=== PATIENT | female | born 1940 | race Caucasian/White ===

== ENCOUNTER → 2024-03-23 09:50 | Outpatient (REF) | payer OTHER, SELFPAY | LOC: HWWDC 09:50 | PROVIDERS: ATTENDING PHYSICIAN Family Medicine Geriatric Medicine; FAMILY PHYSICIAN Nurse Practitioner Family; REFERRING PHYSICIAN Internal Medicine Hematology & Oncology | DX: Z12.31 Encounter for screening mammogram for malignant neoplasm of breast (principal) | CPT/HCPCS: 77063; 77067 ==

== ENCOUNTER → 2024-09-28 08:45 | Outpatient (REF) | payer OTHER, SELFPAY ==
[2024-09-28 10:13] LABS: % Basophils 1.3 % (0-2); % Eosinophils 2.8 % (0-6); % Immature Granulocytes 0.3 % (0-0.5); % Lymphocytes 25.6 % (20.5-51.1); % Monocytes 8.7 % (1.7-9.3); % Neutrophils 61.3 % (42.2-75.2); Absolute Basophils 0.1 10^3/uL (0-0.2); Absolute Eosinophils 0.2 10^3/uL (0-0.7); Absolute Lymphocytes 1.7 10^3/uL (1.2-3.4); Absolute Monocytes 0.6 10^3/uL (0.1-0.6); Absolute Neutrophils 4.2 10^3/uL (1.4-6.5); Hematocrit 43.3 % (37.0-47.0); Hemoglobin 13.3 g/dL (12.0-16.0); Mean Corp Hgb Conc. 30.7 g/dL (33.0-37.0); Mean Corpuscular Hgb 27.4 pg (27.0-31.0); Mean Corpuscular Volume 89.3 fL (81.0-99.0); Mean Platelet Volume 8.9 fL (7.4-10.4); Nucleated Red Blood Cells % 0 %; Platelet Count 294 10^3/uL (130-400); Red Blood Cell Count 4.85 10^6/uL (4.20-5.40); Red Cell Dist. Width 13.6 % (11.5-14.5); White Blood Cell Count 6.8 10^3/uL (4.8-10.8)
[2024-09-28 10:44] LABS: ALT (SGPT) 17 U/L (0-35); AST (SGOT) 26 U/L (14-36); Albumin 4.1 g/dl (3.5-5.0); Alkaline Phosphatase 135 U/L (38-126); Blood Urea Nitrogen 21 mg/dl (7-17); Calcium 9.4 mg/dl (8.4-10.2); Carbon Dioxide 29 mmol/L (22-30); Chloride 102 mmol/L (98-107); Direct Bilirubin 0.1 mg/dl (0.0-0.4); Glucose 88 mg/dl (70-99); Phosphorus 3.7 mg/dl (2.5-4.5); Potassium 4.9 mmol/L (3.5-5.1); Sodium 141 mmol/L (135-145); Total Bilirubin 0.5 mg/dl (0.2-1.3); Total Protein 6.7 g/dl (6.3-8.2); eGFR > 60.00
== END ==
LOC: REG 08:45
PROVIDERS: ATTENDING PHYSICIAN Internal Medicine Hematology & Oncology
DX: C50.411 Malignant neoplasm of upper-outer quadrant of right female breast (principal)
CPT/HCPCS: 36415; 80053; 82248; 84100; 85025

== ENCOUNTER → 2024-11-30 11:57 | Outpatient (REF) | payer OTHER, SELFPAY ==
[2024-11-30 13:24] LABS: ALT (SGPT) 11 U/L (0-35); AST (SGOT) 17 U/L (14-36); Albumin 3.4 g/dl (3.5-5.0); Alkaline Phosphatase 106 U/L (38-126); Direct Bilirubin 0.2 mg/dl (0.0-0.4); Total Bilirubin 0.6 mg/dl (0.2-1.3); Total Protein 6.1 g/dl (6.3-8.2)
== END ==
LOC: REG 11:57
PROVIDERS: ATTENDING PHYSICIAN Nurse Practitioner Adult Health
DX: C50.411 Malignant neoplasm of upper-outer quadrant of right female breast (principal)
CPT/HCPCS: 36415; 80076

== ENCOUNTER → 2025-02-22 08:53 | Outpatient (REF) | payer OTHER, SELFPAY ==
[2025-02-22 10:03] LABS: % Basophils 1.1 % (0-2); % Eosinophils 1.9 % (0-6); % Immature Granulocytes 0.5 % (0-0.5); % Lymphocytes 24.4 % (20.5-51.1); % Monocytes 8.8 % (1.7-9.3); % Neutrophils 63.3 % (42.2-75.2); Absolute Basophils 0.1 10^3/uL (0-0.2); Absolute Eosinophils 0.2 10^3/uL (0-0.7); Absolute Lymphocytes 2.1 10^3/uL (1.2-3.4); Absolute Monocytes 0.8 10^3/uL (0.1-0.6); Absolute Neutrophils 5.5 10^3/uL (1.4-6.5); Hemoglobin 11.6 g/dL (12.0-16.0); Mean Corp Hgb Conc. 31.4 g/dL (33.0-37.0); Mean Corpuscular Hgb 26.1 pg (27.0-31.0); Mean Corpuscular Volume 83.1 fL (81.0-99.0); Mean Platelet Volume 8.4 fL (7.4-10.4); Nucleated Red Blood Cells % 0 %; Platelet Count 307 10^3/uL (130-400); Red Blood Cell Count 4.45 10^6/uL (4.20-5.40); Red Cell Dist. Width 16.2 % (11.5-14.5); White Blood Cell Count 8.7 10^3/uL (4.8-10.8)
[2025-02-22 10:44] LABS: ALT (SGPT) 13 U/L (0-35); AST (SGOT) 18 U/L (14-36); Albumin 3.9 g/dl (3.5-5.0); Alkaline Phosphatase 109 U/L (38-126); Blood Urea Nitrogen 19 mg/dl (7-17); Calcium 9.3 mg/dl (8.4-10.2); Carbon Dioxide 25 mmol/L (22-30); Chloride 105 mmol/L (98-107); Glucose 94 mg/dl (70-99); Potassium 4.4 mmol/L (3.5-5.1); Sodium 139 mmol/L (135-145); Total Bilirubin 0.7 mg/dl (0.2-1.3); Total Cholesterol 240 mg/dl (50-199); Total Protein 6.4 g/dl (6.3-8.2); Triglyceride 88 mg/dl (10-149); Very Low Density Lipoprotein 17 mg/dl (0-30); eGFR > 60.00
[2025-02-22 10:57] LABS: Free T4 1.23 ng/dl (0.78-2.19)
[2025-02-22 11:11] LABS: TSH 2.56 uIU/ml (0.47-4.68)
[2025-02-22 12:01] LABS: Glycohemoglobin (HgbA1c) 5.1 % (4.0-5.6)
[2025-02-22 12:31] LABS: HDL Cholesterol 51 mg/dl; LDL Cholesterol, Calculated 172 mg/dl
== END ==
LOC: REG 08:53
PROVIDERS: ATTENDING PHYSICIAN Registered Nurse; REFERRING PHYSICIAN Internal Medicine Hematology & Oncology
DX: Z13.6 Encounter for screening for cardiovascular disorders (principal); Z13.0 Encounter for screening for diseases of the blood and blood-forming organs and certain disorders involving the immune mechanism; Z13.29 Encounter for screening for other suspected endocrine disorder
CPT/HCPCS: 36415; 80053; 80061; 83036; 84439; 84443; 85025

== ENCOUNTER → 2025-03-23 08:59 | Outpatient (REF) | payer OTHER, SELFPAY ==
[2025-03-23 11:30] LABS: HDL Cholesterol 40 mg/dl; LDL Cholesterol, Calculated 119 mg/dl; Total Cholesterol 180 mg/dl (50-199); Triglyceride 106 mg/dl (10-149); Very Low Density Lipoprotein 21 mg/dl (0-30)
== END ==
LOC: REG 08:59
PROVIDERS: ATTENDING PHYSICIAN Registered Nurse
DX: E78.5 Hyperlipidemia, unspecified (principal); R19.5 Other fecal abnormalities; R73.01 Impaired fasting glucose
CPT/HCPCS: 36415; 80061; 87045; 87046; 87324; 87328; 87329; 87427; 87449; 89055

== ENCOUNTER → 2025-03-24 09:32 | Outpatient (REF) | payer OTHER, SELFPAY | LOC: HWWDC 09:32 | PROVIDERS: ATTENDING PHYSICIAN Internal Medicine Hematology & Oncology; FAMILY PHYSICIAN Registered Nurse | DX: Z12.31 Encounter for screening mammogram for malignant neoplasm of breast (principal) | CPT/HCPCS: 77063; 77067 ==

== ENCOUNTER 2025-04-13 16:14 | Inpatient (IN) | payer OTHER, SELFPAY ==
[2025-04-13] VITALS (17 sets, daily range): BP systolic 126–164; BP diastolic 69–99; BMI 20.6; BMI 19.5
[2025-04-13 11:25] LABS: % Basophils 0.4 % (0-2); % Eosinophils 0.3 % (0-6); % Immature Granulocytes 0.3 % (0-0.5); % Monocytes 10.1 % (1.7-9.3); % Neutrophils 75.9 % (42.2-75.2); Absolute Basophils 0.1 10^3/uL (0-0.2); Absolute Lymphocytes 1.5 10^3/uL (1.2-3.4); Absolute Monocytes 1.1 10^3/uL (0.1-0.6); Absolute Neutrophils 8.5 10^3/uL (1.4-6.5); Hematocrit 37.4 % (37.0-47.0); Hemoglobin 11.6 g/dL (12.0-16.0); Mean Corpuscular Hgb 25.1 pg (27.0-31.0); Mean Platelet Volume 8.5 fL (7.4-10.4); Nucleated Red Blood Cells % 0 %; Platelet Count 400 10^3/uL (130-400); Red Blood Cell Count 4.62 10^6/uL (4.20-5.40); Red Cell Dist. Width 17.6 % (11.5-14.5); White Blood Cell Count 11.2 10^3/uL (4.8-10.8)
--- NOTE | 2025-04-13 11:29 | ED.GENMED ---
History of Present Illness
General
Chief Complaint: Abdominal Pain
Time Seen by Provider: 04/13/25 10:58
History of Present Illness
History of Present Illness:
The patient is an 84-year-old female who presents with abdominal pain and diarrhea, previously diagnosed with Cryptosporidium infection. She reports the onset of symptoms several months ago. A stool sample confirmed Cryptosporidium, although the
source was undetermined despite investigations by the health department. She mentions completing a 13-day course of metronidazole (Flagyl) four days ago, which temporarily relieved the symptoms. Abdominal pain and diarrhea have since returned. The
diarrhea is described as loose and variable in appearance, not as watery as it was with the initial infection. She denies nausea or vomiting but reports significant weight loss and a diminished appetite, contributing to feelings of unsteadiness.
Past History
Past History
ED Past Medical History: None
ED Past Surgical History: None
Social History
Tobacco: Non-smoker
Phy Exam
Physical Exam
Physical Exam:
GENERAL: in no acute distress
HEENT: normocephalic, extraocular movements intact, moist oral mucosa
NECK: normal inspection
RESPIRATORY: no respiratory distress, clear to auscultation bilaterally
CARDIOVASCULAR: regular rate and rhythm
ABDOMEN/: soft, non-distended, diffuse abdominal tenderness palpation, no rebound or guarding
EXTREMITIES: non-tender, no edema/swelling
NEUROLOGIC: awake and alert, moves all extremities
SKIN: warm
Course
Orders/Labs/Results
Orders:
Orders
04/13/25 10:58
CT Abd/pelvis W Iv Cont Urgent
Comment:
Reason For Exam: abdominal pain, diarrhea
04/13/25 11:00
Electrocardiogram (*1) Urgent
Reason for Study: Abdominal Pain
EKG- Treatment ONCE
04/13/25 11:07
Complete Blood Count/With Diff Urgent
Comprehensive Metabolic Panel Urgent
04/13/25 11:14
Ova & Parasites Giardia/Crypto AG [Giardia/Cryptosporidium Ag] Urgent
BETTY Source: Feces/Stool
Specimen Description:
Date Specimen was Collected: 04/13/25
Time Specimen was Collected: 11:13
STOOL [C difficile Antigen & Toxins] Urgent
BETTY Source: Feces/Stool
Specimen Description:
Date Specimen was Collected: 04/13/25
Time Specimen was Collected: 11:13
Stool Culture Urgent
BETTY Source: Feces/Stool
Specimen Description:
Date Specimen was Collected: 04/13/25
Time Specimen was Collected: 11:13
Stool For WBC Urgent
BETTY Source: Feces/Stool
Specimen Description:
Date Specimen was Collected: 04/13/25
Time Specimen was Collected: 11:13
04/13/25 12:23
Dicyclomine [Bentyl] 20 mg PO NOW STA
04/13/25 12:35
Norovirus by PCR Urgent
BETTY Source: Feces/Stool
Specimen Description:
Date Specimen was Collected: 04/13/25
Time Specimen was Collected: 11:29
Comment: specimen sent already
04/13/25 15:04
Zosyn 4.5 grams IVPB NOW Piperacillin/Tazo 4.5 Gram [Zosyn] 4.5 gram in 100 ml IV NOW
Abnormal Lab Results
04/13/25
11:07
WBC 11.2 H 10^3/uL
(4.8-10.8)
Hgb 11.6 L g/dL
(12.0-16.0)
MCH 25.1 L pg
(27.0-31.0)
MCHC 31.0 L g/dL
(33.0-37.0)
RDW 17.6 H %
(11.5-14.5)
Absolute Neuts (auto) 8.5 H 10^3/uL
(1.4-6.5)
Absolute Monos (auto) 1.1 H 10^3/uL
(0.1-0.6)
Neutrophils % 75.9 H %
(42.2-75.2)
Lymphocytes % 13.0 L %
(20.5-51.1)
Monocytes % 10.1 H %
(1.7-9.3)
Glucose 126 H mg/dl
(70-99)
Total Protein 6.1 L g/dl
(6.3-8.2)
Albumin 3.4 L g/dl
(3.5-5.0)
04/13/25 11:07
04/13/25 11:07
Vital Signs
Initial and Last Documented VS:
Initial Vital Signs
Temp Pulse Resp BP Pulse Ox
98.2 F 113 20 151/90 98
04/13/25 10:18 04/13/25 10:18 04/13/25 10:18 04/13/25 10:18 04/13/25 10:18
Last Documented Vital Signs
Temp Pulse Resp BP Pulse Ox
98.2 F 103 14 139/80 98
04/13/25 10:18 04/13/25 14:15 04/13/25 14:15 04/13/25 14:00 04/13/25 14:15
MDM/Problems Addressed
Differential Diagnosis Includes:
84-year-old woman presenting to the emergency department with diarrhea for the past few days abdominal cramping after recently finishing Flagyl for Cryptosporidium. Vitals notable for heart rate in the low 100s and dry oral mucosa as well as
diffuse tenderness though worse in the right lower quadrant. Differential consists of bacterial infection which is viral gastroenteritis versus malignancy versus diverticulitis versus C. difficile. Will check blood work stool culture and CT scan.
Will give fluids and Bentyl.
*Critical Care Note
Total Time (30-74mins, 75-104mins- exclusive of procedures): Not Applicable
Update Note
Update Note:
Labs notable for slightly elevated WBC. BMP is normal. Stool is negative for Giardia, Cryptosporidium and C. difficile. Remaining testing pending.
On reevaluation patient's heart rate has decreased after the fluids. She does state that the stool has now become more formed.
Probable large colonic mass in the sigmoid colon concerning for malignancy until proven otherwise. Phlegmonous process due to acute diverticulitis and less likely abscess cannot be completely excluded. Repeat exam with oral contrast recommended
Air in the bladder. This may be due to recent instrumentation. If there is no such history, infection in the bladder and a colovesical fistula cannot be excluded.
Mild free fluid in the pelvis likely reactive.
Moderate hiatal hernia
Bilateral too small to characterize hypodense renal lesions likely benign cysts. Small left renal cyst.
CT scan as above. Will give Zosyn given that she does have leukocytosis discussed with hospitalist for admission. Colorectal surgery also updated
ED Attending Note
-
Portions of this chart may have been created with voice recognition software.� Occasional wrong word or��sound alike� substitutions may have occurred due to the inherent limitations of voice recognition software.
Discharge Plan
Departure
Patient Disposition: Admit
Date of Disposition: 04/13/25
Time of Disposition: 15:04
Presentation/result/management discussed w/ accepting MD/DO: Hospitalist
Discharge Problem:
Abdominal pain, Diverticulitis
Prescriptions:
No Action
biotin 500 MCG capsule
1,000 mcg PO DAILY
vitamin P39-vucyxixby factor [Martinic] 1 EACH capsule
1,000 mg PO DAILY
amlodipine 2.5 MG tablet
2.5 mg PO DAILY
ascorbic acid (vitamin C) [Vitamin C] 500 MG tablet
500 mg PO DAILY
cholecalciferol (vitamin D3) [Vitamin D3] 1,000 UNIT capsule
2,000 unit PO DAILY
magnesium oxide 500 MG capsule
500 mg PO DAILY
letrozole [Femara] 2.5 MG tablet
2.5 mg PO DAILY
Referrals:
Michell Howard CRNP [Family Provider, Family Practice]
Activity Restrictions/Additional Instructions:
You were seen in the Emergency Department today for . Abdominal pain diarrhea while you were here we performed blood work, which was reassuring. We will call if your stool culture is positive
We would like for you to follow up with your primary care physician for further evaluation. If you experience fever, worsening of your symptoms, or develop any other new or concerning symptoms, please return to the Emergency Department immediately.
Please see the attached sheet for additional information.
Interventions
Interventions:
*Risk Screen - Suicide Last Done: 04/13/25 10:18
*General Assessment Last Done: 04/13/25 10:18
*Neglect/Abuse Screening Last Done: 04/13/25 10:18
*ED- Fall Risk Assessment Last Done: 04/13/25 11:11
*ED COVID-19 Vaccine History Last Done: 04/13/25 10:18
WC-Ahacjg-Cblnkkvqdz Assessment Last Done: 04/13/25 11:11
Discharge Date and Time
Print Language: [place] CITIZEN
[2025-04-13 11:42] LABS: ALT (SGPT) 12 U/L (0-35); AST (SGOT) 18 U/L (14-36); Albumin 3.4 g/dl (3.5-5.0); Alkaline Phosphatase 86 U/L (38-126); Blood Urea Nitrogen 13 mg/dl (7-17); Calcium 9.1 mg/dl (8.4-10.2); Carbon Dioxide 27 mmol/L (22-30); Chloride 103 mmol/L (98-107); Estimated Creatinine Clearance 56 ml/min; Glucose 126 mg/dl (70-99); Potassium 3.7 mmol/L (3.5-5.1); Sodium 135 mmol/L (135-145); Total Bilirubin 0.7 mg/dl (0.2-1.3); Total Protein 6.1 g/dl (6.3-8.2); eGFR > 60.00
[2025-04-13] MEDS: BENTYL 20 MG PO (12:34)
[2025-04-13] MEDS: ZOSYN 100 IV (15:17)
--- NOTE | 2025-04-13 15:18 | HPS.HSE ---
Addendum entered and electronically signed by Ag Perry MD 04/13/25 16:28:
I personally performed a history and physical exam of the patient and discussed management with the resident. I reviewed the resident's note and agree with the documented findings and plan of care HPI/CC.
Original Note:
Family Physician
-
Family Physician: GARRISON Sargent
Chief Complaint
-
abdominal pain
History of Present Illness
Pt is an 84yoF h Cryptosporidium infection presents to [facility] ED w abdominal pain and diarrhea. Sx started several months ago, stool sample confirmed Cryptosporidium, source remains unidentified by the health department. She completed a 13-day
course of flagyl four days ago. This provided some sx relief, but the abdominal pain and diarrhea have since returned. Abd pain located in lower middle abdomen. Achy 8/10 pain. No radiation. +weight loss, +reduced appetite (drank some water today
w/o hunger), +unsteadiness, -N/V.
Medical History
Past Medical History
Past Medical History: Reports Cancer and HTN
Past Surgical History: Reports Orthopedic (b/l TKA) and Other (parathyroidectomy, lumpectomy)
Social History
Tobacco: Non-smoker
Alcohol: None
Drug: None
Living: Alone
Employment: Employed (works at [employer])
Family History
Family History: Not pertinent
Allergies / Home Medications
Allergies reflects when Allergies were last updated in [employer].
Home Medications with original date entered in [employer]
Allergy/Medication List:
Allergies
Allergy/AdvReac Type Severity Reaction Status Date / Time
No Known Allergies Allergy Verified 04/13/25 10:17
Home Medications
amlodipine 2.5 mg tablet 2.5 mg PO DAILY 04/08/12
letrozole 2.5 mg tablet (Femara) 2.5 mg PO DAILY 03/08/21
acetaminophen 500 mg tablet (Tylenol Extra Strength) 1,000 mg PO DAILYPRN PRN mild pain 04/13/25
ascorbic acid (vitamin C) 500 mg tablet (Vitamin C) 500 mg PO DAILY 04/13/25
cyanocobalamin (vitamin B-12) 1,000 mcg tablet 1,000 mcg PO DAILY 04/13/25
vitamin E 268 mg (400 unit) capsule 268 mg PO DAILY 04/13/25
Review of Systems
-
History Source: Patient
Constitutional: Reports Weight Loss
EENT: Reports No Symptoms
Respiratory: Reports No Symptoms
Cardiac: Reports No Symptoms
Abdomen/GI: Reports Abdominal Pain, Diarrhea and Anorexia; Denies Vomiting
: Reports No Symptoms
Musculoskeletal: Reports No Symptoms
Skin: Reports No Symptoms
Neurological: Reports Dizzy and Weakness
Endocrine: Reports No Symptoms
Hematologic/Lymphatic: Reports No Symptoms
Psych: Reports No Symptoms
Physical Exam
Vital Signs
Vital Signs
Temp Pulse Resp BP Pulse Ox
98.2 F 103 14 139/80 98
04/13/25 10:18 04/13/25 14:15 04/13/25 14:15 04/13/25 14:00 04/13/25 14:15
Physical Exam
General: Poor Appetite and Cachectic
HEENT: NormoCephalic, Anicteric and Atraumatic
Respiratory: Clear and Non Labored Respirations
Cardiac: S1/S2, Regular Rhythm and Tachycardia
Breast: Deferred by me
GI: Soft, Non Distended, Normal Bowel Sounds and Tender
Genito-urinary: Deferred by me
Musculoskeletal: No Clubbing, No Cyanosis and No Edema
Skin: Warm and Dry
Neuro: Awake, Alert and Oriented
Psych: Calm
Laboratory Results
-
04/13/25 11:07
04/13/25 11:07
Laboratory Results
Total Bilirubin 0.7 mg/dl (0.2-1.3) 04/13/25 11:07
AST 18 U/L (14-36) 04/13/25 11:07
ALT 12 U/L (0-35) 04/13/25 11:07
Alkaline Phosphatase 86 U/L (38-126) 04/13/25 11:07
Impression/Plan
-
IMPRESSION:
[address] [facility] HTN, hx of breast ca s/p surgery/chemo/rads, Cryptosporidium infection presents to [facility] ED w abdominal pain and diarrhea. Sx started several months ago, stool sample confirmed Cryptosporidium, source remains unidentified by the health
department. She completed a 13-day course of flagyl four days ago. This provided some sx relief, but the abdominal pain and diarrhea have since returned.
PLAN:
Gastroenteritis vs diverticulitis vs colitis vs malignancy
- abd/pelvis CT: Probable large colonic mass in the sigmoid colon concerning for malignancy until proven otherwise. Phlegmonous process due to acute diverticulitis and less likely abscess cannot be completely excluded
- stool studies - neg for norovirus, neg for C diff, neg for Cryptosporidium/Giardia, few stool leukocytes seen
- zosyn
- pain control
- probiotics
- appreciate colorectal surgery input
Possible colovesicular fistula vs possible cystitis
- u/a
HTN
- cont home amlodipine
Elevated glucose
- HbA1c
Diet: clear liquids
DVT ppx: heparin
Code status: DNR
--- NOTE | 2025-04-13 15:58 | W.PN.UPDATE ---
Update Note
Progress Note Update
I personally performed a history and physical exam of the patient and discussed management with the resident. I reviewed the resident's note and agree with the documented findings and plan of care HPI/CC.
84F with PMH of breast cancer s/p lumpectomy/chemotherapy on letrozole now, essential HTN, recent crypotsporidium infection came to ER with ongoing non bloody diarrhea and lower abd pain. Patient finsihed flagyl? course recently, states for
cryptosporidium (not the crorrect treatement) . denies of having c-diff or other diagnosis. Patient had some improvement in symptoms but some worsening noted again. Patient have a lower abd pain w/o n/v. No reported fever. CT abdomen pelvis done
in the CT abdomen pelvis done in the ER showing large colonic mass with possible concern of colovesical fistula. Stool studies negative for C. difficile/cryptosporidia/Giardia. A full bacterial culture report result is pending. Patient has been
admitted to hospital service for further evaluation.
HEENT: No pallor, cyanosis, or jaundice. Throat clear.
NECK: Supple. No JVD.
RESPIRATORY: Lungs clear to auscultation.
CVS: S1, S2 normal. RRR. No murmur, rub or gallop.
ABDOMEN: Soft, non-tender. No distension. BS+/normal.
EXTREMITIES: No peripheral cyanosis or edema.
MANUAL QA TESTER: AOx3. No focal deficits.
1. Possible colonic mass vs phlegmon
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
- have some lower abd pain/ no n/v/f
- CT a/p images reviewed .
- No SIRS/systemic reaction to strongly suggest active infection
- Check UA/Urine culture
- CRS has been consulted by ER physician, possibly may require barium enema/flex sig for further diagnosis
- Maintain on CL diet/IVF
- Maintain on empiric zosyn
2.Recent Cryptosporidium infection
- source unclear, not immunocompromised
- repeat stool test neg in ER .
3. Diarrhea
- crypto neg
- cdiff/giardia neg as well. f/u stool culture report
- maintain on slow IVF
4. H/o Right breast invasive ductal carcinoma, stage III
- s/p lumpectomy, course of Adriamycin/cytoxan f/ued by paclitaxel in May
- f/ued by radiation of breast/axiall finishing in jul
- currently on letrozole thearpy, to be continued
5. Essential HTN
- maintain on norvasc
DVT PPX - heparin subq
DNR
[2025-04-13] MEDS: VISBIOME 1 CAP PO (18:23)
[2025-04-13] MEDS: NSS 1000 IV (18:23)
[2025-04-13] MEDS: ULTRAM 50 MG PO (18:41)
--- NOTE | 2025-04-13 19:18 | CON.CRS ---
Consultation
-
Date/Time Consultation Requested: 04/13/25 @ 15:17
Date/Time Consultation Performed: 04/13/25 @ 17:00
Requesting Provider: Cesar Shrestha MD
Performing Provider: Julian Ha MD
Reason for Consultation: Abdominal pain, sigmoid colon mass
Medical History
-
Chief Complaint: abdominal pain and diarrhea
History of Present Illness:
84-year-old female who presents to the ED with diarrhea and abdominal pain. Her bowels were regular until a few months ago when they became loose and occasionally watery. She tested positive for Cryptosporidium and was treated with metronidazole.
She had some improvement and completed the course of antibiotics 4 days ago and started to develop suprapubic and left lower quadrant abdominal pain. The pain is sharp and nonradiating. She denies any rectal bleeding, nausea or vomiting but she
hasn�t been eating much and has lost 9 pounds over the past month. She denies and abdominal distention. She has not had fever but recently she has had rigors on a few occasions. Over the past day or two there has been a small amount of air at the
end of micturition. She denies any dysuria, frequency, or sediment in her urine. She has not had a previous colonoscopy and there is no family history of colon cancer. She does have a personal history of Stage III breast cancer and a right
lumpectomy and sentinel lymph node biopsy followed by, chemotherapy and radiation. Her treatment completed in 2019 and she is LISSET. �She has not undergone any previous abdominal surgery. No previous episdodes of diverticulitis.
While in the ED she has remained afebrile and her blood pressure is slightly elevated. Her heart rate is around 110.� She is in no acute distress. Her abdomen is soft and nondistended. There is a mass in the LLQ that is tender; the remaining
quadrants are soft. �
Her WBC 11.2 and hemoglobin 11.6 g/dL. Her electrolytes, renal function and LFT�s are normal. Total protein is 6.1 g/dl and albumin 3.4g/dl. Urinalysis is pending.
A CT scan of the abdomen and pelvis with oral and IV contrast reveals a large, heterogeneous mass (9 x 5 cm) in the sigmoid colon with inflammation. There is no obstruction, free air, or obvious abscess. There is some mild free fluid in the pelvis
and some air in the bladder. There liver is normal.
Past Medical History
Past Medical History: Cancer (breast) and HTN
Past Surgical History: Orthopedic (bilateral knee replacement) and Other (parathyroidectomy)
Social History
Tobacco: Non-Smoker
Alcohol: None
Personal: Single
Living: Alone
Employment: Employed
Family History
Family History: Reviewed & Noncontributory (negative for colon cancer or IBD)
Allergies / Home Medications
Allergy/AdvReac Type Severity Reaction Status Date / Time
No Known Allergies Allergy Verified 04/13/25 10:17
�Medication �Instructions �Recorded �Confirmed �Type
amlodipine 2.5 mg tablet 2.5 mg PO DAILY 04/08/12 04/13/25 History
letrozole 2.5 mg tablet (Femara) 2.5 mg PO DAILY 03/08/21 04/13/25 History
acetaminophen 500 mg tablet 1,000 mg PO DAILYPRN PRN mild pain 04/13/25 04/13/25 History
(Tylenol Extra Strength)
ascorbic acid (vitamin C) 500 mg 500 mg PO DAILY 04/13/25 04/13/25 History
tablet (Vitamin C)
cyanocobalamin (vitamin B-12) 1,000 mcg PO DAILY 04/13/25 04/13/25 History
1,000 mcg tablet
vitamin E 268 mg (400 unit) capsule 268 mg PO DAILY 04/13/25 04/13/25 History
Review of Systems
-
History Source: Patient
All other systems: Negative unless noted
A 10 point review of systems was completed, and was negative except as per HPI.
Physical Exam
Vital Signs
Temp 98.3 F 04/13/25 17:54
Pulse 100 04/13/25 17:54
Resp Rate 18 04/13/25 17:54
Blood pressure 163/89 04/13/25 17:54
SaO2 98 04/13/25 17:54
04/12/25 04/13/25 04/14/25
06:59 06:59 06:59
Actual Weight 48.279 kg
Body Mass Index (BMI) 19.5
Lab Results / Allergies
04/13/25 11:07
04/13/25 11:07
WBC 11.2 10^3/uL (4.8-10.8) H 04/13/25 11:07
Hgb 11.6 g/dL (12.0-16.0) L 04/13/25 11:07
Hct 37.4 % (37.0-47.0) 04/13/25 11:07
Plt Count 400 10^3/uL (130-400) 04/13/25 11:07
Abs Immat Gran (auto) 0.0 10^3/uL (0-0.05) 04/13/25 11:07
Neutrophils % 75.9 % (42.2-75.2) H 04/13/25 11:07
Allergy/AdvReac Type Severity Reaction Status Date / Time
No Known Allergies Allergy Verified 04/13/25 10:17
Physical Exam
General: Well Developed, Well Nourished, No Apparent Distress and Comfortable
HEENT: Anicteric
Cardiac: Regular Rhythm
GI: Soft, Non Distended, Tender (LLQ and suprapubic) and Other (mass in the LLQ)
Musculoskeletal: No Edema
Neuro: Awake and Alert
Hematologic/Lymphatic: No Lymphadenopathy
Data Reviewed
-
CT Scan: Image Personally Visualized and interpreted, Report Reviewed by me and Discussed with Patient
Labs: Labs Reviewed by me and Discussed with Patient
Assessment / Plan
-
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
I reviewed the possible etiologies for colovesical fistulas with the two most common being diverticular disease and malignancy, with Crohn's disease being less likely. I reviewed the current findings and treatment options including a trial of
nonoperative management in hopes the inflammation will improve followed by a colonoscopy and eventual surgery., Surgery in future could potentially be performed in a minimally invasive fashion without an ostomy. A resection at this time would be
performed in an open fashion with an ostomy, given the degree of inflammation and lack of a bowel prep. Another surgical option is for proximal fecal diversion with definitive surgery at a later date.
I do not feel an emergent operation is needed this evening. If her condition improves, the colonoscopy will be performed in approximately 6 weeks as there is concern for cancer. A flexible sigmoidoscopy will be considered during this admission
depending upon her clinical course. Will eventually need to involve urology, the timing dependent upon her clinical course. All questions answered.
The plan is for antibiotics and close observation. She is requesting clear liquids. I called and left a message with her daughter and son. Will follow.
[2025-04-13] MEDS: ZOSYN 50 IV (21:49)
[2025-04-14] MEDS: HEPARIN 5000 UNITS SC ×3 (00:02→15:53)
[2025-04-14] MEDS: ULTRAM 50 MG PO (02:48)
[2025-04-14] MEDS: ZOSYN 50 IV ×4 (03:55→21:41)
[2025-04-14 06:04] LABS: Hematocrit 30.6 % (37.0-47.0); Hemoglobin 9.9 g/dL (12.0-16.0); Mean Corp Hgb Conc. 32.4 g/dL (33.0-37.0); Mean Corpuscular Hgb 25.7 pg (27.0-31.0); Mean Corpuscular Volume 79.5 fL (81.0-99.0); Mean Platelet Volume 8.3 fL (7.4-10.4); Platelet Count 315 10^3/uL (130-400); Red Blood Cell Count 3.85 10^6/uL (4.20-5.40); Red Cell Dist. Width 17.4 % (11.5-14.5); White Blood Cell Count 5.4 10^3/uL (4.8-10.8)
[2025-04-14 06:07] LABS: Blood Urea Nitrogen 7 mg/dl (7-17); Calcium 8.6 mg/dl (8.4-10.2); Carbon Dioxide 27 mmol/L (22-30); Chloride 106 mmol/L (98-107); Estimated Creatinine Clearance 54 ml/min; Glucose 81 mg/dl (70-99); Potassium 3.6 mmol/L (3.5-5.1); Sodium 136 mmol/L (135-145); eGFR > 60.00
[2025-04-14 06:37] LABS: CEA 5.96 ng/ml
[2025-04-14 07:00] VITALS: BP 148/76
--- NOTE | 2025-04-14 07:24 | W.PN.HOSP.TC ---
Today's Communication/Plan
-
.
Assessment / Plan
Assessment / Plan
Assessment:
84yoF pmh HTN, hx of breast ca s/p surgery/chemo/rads, Cryptosporidium infection presents to [facility] ED w abdominal pain and diarrhea. Sx started several months ago, stool sample confirmed Cryptosporidium, source remains unidentified by the health
department. She completed a 13-day course of flagyl four days ago. This provided some sx relief, but the abdominal pain and diarrhea have since returned.
PLAN:
Possible colonic mass vs phlegmon
- abd/pelvis CT: Probable large colonic mass in the sigmoid colon concerning for malignancy until proven otherwise. Phlegmonous process due to acute diverticulitis and less likely abscess cannot be completely excluded
- stool studies - neg for norovirus, neg for C diff, neg for Cryptosporidium/Giardia, few stool leukocytes seen
- zosyn
- pain control
- probiotics
- appreciate colorectal surgery input - possible flex sigmoidoscopy, eventual colonoscopy outpt @ 6wk
Possible colovesicular fistula vs possible cystitis
- u/a
Recent Cryptosporidium infection
- unclear source
- repeat stool test neg in ER
Diarrhea
- neg for cryptococcus, C diff, norovirus, giardia
- IVF
Anemia
- stable
- monitor
HTN
- cont home amlodipine
H/o Right breast invasive ductal carcinoma, stage III
- s/p rad, lumpectomy
- cont letrozole
Elevated glucose
- HbA1c
Diet: clear liquids
DVT ppx: heparin
Code status: DNR
Anticipated Discharge: 24 - 48 hours
Subjective/Interval History
-
Date of Service: April 14, 2025
No acute overnight events.
Objective Data
-
Labs:
Laboratory Results
04/14/25
05:12
WBC 5.4
Hgb 9.9 L
Hct 30.6 L
Plt Count 315 D
Sodium 136
Potassium 3.6
Chloride 106
Carbon Dioxide 27
BUN 7
Creatinine 0.6
Glucose 81
Calcium 8.6
Vital Signs:
Vital Signs
Temp Pulse Resp BP Pulse Ox
98.5 F 88 16 126/84 95
04/13/25 23:00 04/13/25 23:00 04/13/25 23:00 04/13/25 23:00 04/13/25 23:00
I&O
04/13/25 04/14/25 04/15/25
06:59 06:59 06:59
Intake Total 1460 / 1460
Balance 1460 / 1460
Review of Systems
-
History Source: Patient
Constitutional: Reports No Symptoms
Respiratory: Reports No Symptoms
Cardiac: Reports No Symptoms
Abdomen/GI: Reports Diarrhea
Neuro: Reports No Symptoms
Physical Exam
-
General: Cachectic
HEENT: Normocephalic and Atraumatic
Respiratory: Clear to Auscultation and Non Labored Respirations
Cardiac: Regular Rhythm and S1/S2
GI: Soft, Nontender, Nondistended and Normal Bowel Sounds
Musculoskeletal: No Clubbing, No Cyanosis and No Edema
Skin: Warm and Dry
Neuro: Awake, Alert and Oriented
Psych: Calm
[2025-04-14] MEDS: NORVASC 2.5 MG PO (08:43)
[2025-04-14] MEDS: FEMARA 2.5 MG PO (08:43)
[2025-04-14] MEDS: VITAMIN C 500 MG PO (08:43)
[2025-04-14] MEDS: VISBIOME 1 CAP PO (08:43)
[2025-04-14] MEDS: VITAMIN B-12 1000 MCG PO (08:44)
[2025-04-14] MEDS: NSS 1000 IV (08:46)
--- NOTE | 2025-04-14 08:49 | W.PN.CRS1 ---
Today's Communication / Plan
-
As below
Assessment/Plan
-
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
fistula; being treated nonoperatively with IV antibiotics
AFVSS
WBC 5.4, Hb 9.9 from 11.6, CR 0.6
� Would continue clears for now and IVF; if continues to improve, okay for full's in the p.m.
� Continue pain control with Tylenol and tramadol
� Continue DVT PPx with subQ heparin
� Continue IV Zosyn
� Encourage IS/OOB
� No acute surgical intervention; agree with cooling down inflammation with IV antibiotics and colonoscopy in 6 weeks; if clinically worsens, may need flexible sigmoidoscopy and possible surgery
� Appreciate hospitalist
Subjective Data
Subjective Data
Date of Service: April 14, 2025
No overnight events.
Pain improved since yesterday.
Denies nausea/vomiting. Having no appetite.
-flatus + small-volume liquidy stools +voiding
Objective Data
-
Vital Signs
Temp Pulse Resp BP Pulse Ox
97.4 F 72 18 148/76 97
04/14/25 07:00 04/14/25 07:00 04/14/25 07:00 04/14/25 07:00 04/14/25 07:00
Intake & Output
04/13/25 04/14/25 04/15/25
06:59 06:59 06:59
Intake Total 1460 / 1460
Balance 1460 / 1460
Intake:
Oral fluids 480 / 480
IV fluids (Total) 880 / 880
IV piggybacks 100 / 100
Other:
Number of approximated MODERATE 2
amounts of urine
Lab Results
04/14/25 05:12
04/14/25 05:12
Physical Exam
-
General: No Acute Distress and AOx3
HEENT: Grossly Normal
Abdomen: Soft, Non Distended, Tender (Minimally to mildly tender in the LLQ), No Guarding and No Rebound
Skin: Warm and Dry
[2025-04-14 09:22] LABS: Glycohemoglobin (HgbA1c) 5.2 % (4.0-5.6)
[2025-04-14] MEDS: ULTRAM 25 MG PO (09:37)
--- NOTE | 2025-04-14 11:22 | PN.CDI ---
CDI
- -
CDI:
Physician Documentation Request
Admit Date: 04/13/25 16:14
Dear Doctor Orlando,
Please review the following and provide your response in the progress notes.
Clinical Indicators:
Laboratory Tests
04/13/25 04/14/25
11:07 05:12
Hgb 11.6 L 9.9 L
Hct 37.4 30.6 L
Based on the above and your clinical assessment, please clarify the likely diagnosis/condition evaluated, monitored and/or treated?
Acute blood loss anemia
Acute blood loss anemia with baseline chronic anemia (Specify type)
Anemia of chronic disease - indicate if neoplastic disease, CKD or other
Precipitous drop in hematocrit
Other(please specify)
Use of terms such as suspected, likely, concern for, or probable (associated with a specific diagnosis that is being evaluated, monitored, or treated as if it exists) are acceptable and can be coded in the inpatient setting, when documented at the
time of discharge.
Thank you,
Nora Perez RN BSN CCDS
CDI Specialist
Please contact via tiger text
Please use your independent medical judgment in providing your response.
[2025-04-14 14:49] LABS: Urine Albumin 2+ (Neg - Trace); Urine Bilirubin Negative (Negative); Urine Character Clear (Clear); Urine Color Yellow; Urine Glucose Negative (Negative); Urine Ketone Negative (Negative); Urine Leukocyte 3+ (Negative); Urine Nitrite Negative (Negative); Urine Occult Blood 2+ (Negative); Urine Urobilinogen Negative (Neg - 1+)
[2025-04-14 14:59] VITALS: BMI 19.5
[2025-04-14 15:00] VITALS: BP 133/69
[2025-04-14 15:10] LABS: Urine Squamous Cell 0-2 /LPF (Few)
[2025-04-14 15:11] LABS: Urine Bacteria Few (Negative); Urine White Cell 50-60 /HPF (0-5)
[2025-04-14] MEDS: MELATONIN 5 MG PO (21:41)
[2025-04-14] MEDS: ZOFRAN 4 MG IV (21:57)
[2025-04-14 23:12] VITALS: BP 138/75
[2025-04-15] MEDS: HEPARIN SC (00:02)
[2025-04-15] MEDS: ZOSYN 50 IV ×4 (03:43→21:19)
[2025-04-15 05:48] LABS: Hematocrit 32.2 % (37.0-47.0); Hemoglobin 10.4 g/dL (12.0-16.0); Mean Corp Hgb Conc. 32.3 g/dL (33.0-37.0); Mean Corpuscular Hgb 25.9 pg (27.0-31.0); Mean Corpuscular Volume 80.1 fL (81.0-99.0); Mean Platelet Volume 8.3 fL (7.4-10.4); Platelet Count 335 10^3/uL (130-400); Red Blood Cell Count 4.02 10^6/uL (4.20-5.40); Red Cell Dist. Width 17.2 % (11.5-14.5); White Blood Cell Count 3.8 10^3/uL (4.8-10.8)
[2025-04-15 06:18] LABS: Blood Urea Nitrogen 5 mg/dl (7-17); Carbon Dioxide 27 mmol/L (22-30); Chloride 108 mmol/L (98-107); Estimated Creatinine Clearance 54 ml/min; Glucose 82 mg/dl (70-99); Potassium 3.9 mmol/L (3.5-5.1); Sodium 137 mmol/L (135-145); eGFR > 60.00
[2025-04-15 07:00] VITALS: BP 135/79
[2025-04-15] MEDS: NORVASC 2.5 MG PO (08:17)
[2025-04-15] MEDS: VISBIOME 1 CAP PO (08:17)
[2025-04-15] MEDS: VITAMIN B-12 1000 MCG PO (08:17)
[2025-04-15] MEDS: FEMARA 2.5 MG PO (08:17)
[2025-04-15] MEDS: VITAMIN C 500 MG PO (08:17)
[2025-04-15] MEDS: HEPARIN 5000 UNITS SC ×3 (08:18→22:11)
[2025-04-15] MEDS: ZOFRAN 4 MG IV (11:07)
--- NOTE | 2025-04-15 12:54 | W.PN.CRS1 ---
Today's Communication / Plan
-
full liquids
Assessment/Plan
-
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
fistula; being treated nonoperatively with IV antibiotics
AFVSS
WBC 3.8, Hb 10.4
� Advance to full liquid diet, if doing well, will start on low residue tomorrow
� Continue pain control with Tylenol and tramadol
� Continue DVT PPx with subQ heparin
� Continue IV Zosyn
� Encourage IS/OOB
� No acute surgical intervention; agree with cooling down inflammation with IV antibiotics and colonoscopy in 6 weeks; if clinically worsens, may need flexible sigmoidoscopy and possible surgery.
� Appreciate hospitalist
Subjective Data
Subjective Data
Date of Service: April 15, 2025
Patient states she is hungry. She is having liquid stool. Pain has much improved.
Objective Data
-
Vital Signs
Temp Pulse Resp BP Pulse Ox
98.0 F 75 17 139/79 95
04/15/25 07:00 04/15/25 08:17 04/15/25 07:00 04/15/25 08:17 04/15/25 07:00
Intake & Output
04/14/25 04/15/25 04/16/25
06:59 06:59 06:59
Intake Total 1460 / 1460 420 / 420
Balance 1460 / 1460 420 / 420
Intake:
Oral fluids 480 / 480 420 / 420
IV fluids (Total) 880 / 880
IV piggybacks 100 / 100
Other:
Number of approximated MODERATE 2 1
amounts of urine
Lab Results
04/15/25 05:13
04/15/25 05:13
Physical Exam
-
General: No Acute Distress and AOx3
Abdomen: Soft, Non Distended and Non Tender
Skin: Warm and Dry
--- NOTE | 2025-04-15 13:03 | W.PN.HOSP.TC ---
Today's Communication/Plan
-
diet per CRS
continue abx
zofran for nausea
Assessment / Plan
Assessment / Plan
1. Possible colonic mass vs phlegmon
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
- have some lower abd pain/ no n/v/f
- CT a/p images reviewed .
- No SIRS/systemic reaction to strongly suggest active infection
- UA showing pyuria/bacteriuria, no recurrent UTI h/o to suggest colo-vesical fistula.
- CRS evaluated and recommended for inflammatory changes in pelvis to be settled before outpatient colonoscopy in 6 weeks
- Maintain on empiric zosyn
- Diet being advanced slowly by CRS.
2.Recent Cryptosporidium infection
- source unclear, not immunocompromised
- repeat stool test neg in ER .
3. Diarrhea - improved
- crypto neg
- Cdiff/giardia neg as well. f/u stool culture report
4. H/o Right breast invasive ductal carcinoma, stage III
- s/p lumpectomy, course of Adriamycin/cytoxan f/ued by paclitaxel in May
- f/ued by radiation of breast/axiall finishing in jul
- currently on letrozole thearpy, to be continued
5. Essential HTN
- maintain on norvasc
DVT PPX - heparin subq
DNR
Anticipated Discharge: 24 - 48 hours
Subjective/Interval History
-
Date of Service: April 15, 2025
Having some nausea without vomiting
Some lower abdominal discomfort
Afebrile overnight
Objective Data
-
Labs:
Laboratory Results
04/15/25
05:13
WBC 3.8 L
Hgb 10.4 L
Hct 32.2 L
Plt Count 335
Sodium 137
Potassium 3.9
Chloride 108 H
Carbon Dioxide 27
BUN 5 L
Creatinine 0.6
Glucose 82
Calcium 9.0
Vital Signs:
Vital Signs
Temp Pulse Resp BP Pulse Ox
98.0 F 75 17 139/79 95
04/15/25 07:00 04/15/25 08:17 04/15/25 07:00 04/15/25 08:17 04/15/25 07:00
I&O
04/14/25 04/15/25 04/16/25
06:59 06:59 06:59
Intake Total 1460 / 1460 420 / 420
Balance 1460 / 1460 420 / 420
Review of Systems
-
Respiratory: Reports No Symptoms
Cardiac: Reports No Symptoms
Abdomen/GI: Denies Abdominal Pain or Nausea
Physical Exam
-
General: Cachectic
HEENT: Normocephalic and Atraumatic
Respiratory: Clear to Auscultation and Non Labored Respirations
Cardiac: Regular Rhythm and S1/S2
GI: Soft, Nontender, Nondistended and Normal Bowel Sounds
Musculoskeletal: No Clubbing, No Cyanosis and No Edema
Skin: Warm and Dry
Neuro: Awake, Alert and Oriented
Psych: Calm
[2025-04-15] MEDS: ULTRAM 25 MG PO (15:49)
[2025-04-15 16:00] VITALS: BP 143/80
--- NOTE | 2025-04-15 17:41 | CM ---
Alert awake oriented patient who lives alone in a condo with 1 step to enter.She is independent in activates of daily living.She does drive and work at [employer].She uses no DME.
Had [facility] in past . [facility]
PCP Dr Howard
PLAN Home with no needs
[2025-04-15] MEDS: MELATONIN 5 MG PO (21:20)
[2025-04-15 23:00] VITALS: BP 130/65
[2025-04-16] MEDS: ZOSYN 50 IV ×2 (04:06→10:39)
[2025-04-16 05:44] LABS: Hematocrit 32.8 % (37.0-47.0); Hemoglobin 10.5 g/dL (12.0-16.0); Mean Corpuscular Hgb 25.7 pg (27.0-31.0); Mean Corpuscular Volume 80.4 fL (81.0-99.0); Mean Platelet Volume 8.2 fL (7.4-10.4); Platelet Count 322 10^3/uL (130-400); Red Blood Cell Count 4.08 10^6/uL (4.20-5.40); Red Cell Dist. Width 17.2 % (11.5-14.5); White Blood Cell Count 5.9 10^3/uL (4.8-10.8)
[2025-04-16 06:03] LABS: Blood Urea Nitrogen 5 mg/dl (7-17); Calcium 8.9 mg/dl (8.4-10.2); Carbon Dioxide 27 mmol/L (22-30); Chloride 107 mmol/L (98-107); Estimated Creatinine Clearance 46 ml/min; Glucose 84 mg/dl (70-99); Potassium 3.7 mmol/L (3.5-5.1); Sodium 138 mmol/L (135-145); eGFR > 60.00
[2025-04-16 07:30] VITALS: BP 131/71
[2025-04-16] MEDS: VITAMIN C 500 MG PO (08:20)
[2025-04-16] MEDS: VITAMIN B-12 1000 MCG PO (08:20)
[2025-04-16] MEDS: NORVASC 2.5 MG PO (08:20)
[2025-04-16] MEDS: VISBIOME 1 CAP PO (08:20)
[2025-04-16] MEDS: FEMARA 2.5 MG PO (08:20)
[2025-04-16] MEDS: HEPARIN 5000 UNITS SC (08:21)
--- NOTE | 2025-04-16 10:44 | W.PN.GS2 ---
Today's Communication / Plan
-
`
Assessment / Plan
-
Assessment: 84-year-old female with sigmoid mass and associated phlegmonous inflammatory changes, possible colovesical fistula.
AFVSS
Improving with medical management
Plan: Advance to low residue diet
Okay for discharge from surgical perspective with outpatient follow-up with Dr. Ha
DC home with prolonged course of oral antibiotics (Augmentin) pending further surgical evaluations/workup as outpatient.
Subjective Data
-
Date of Service: April 16, 2025
Patient seen and examined.
Feeling a lot better, denies significant abdominal pain
Last documented bowel movement 04/13
Tolerating full liquids and feels ready for dietary advancement
Objective Data
-
Intake and Output
04/15/25 04/16/25 04/17/25
06:59 06:59 06:59
Intake Total 420 / 420 580 / 580
Balance 420 / 420 580 / 580
Intake:
Oral fluids 420 / 420 480 / 480
IV piggybacks 100 / 100
Other:
Number of approximated MODERATE 1 3
amounts of urine
Vital Signs
Temp Pulse Resp BP Pulse Ox
97.7 F 76 16 131/71 98
04/16/25 07:30 04/16/25 07:30 04/16/25 07:30 04/16/25 07:30 04/16/25 07:30
Lab Results
04/16/25 05:14
04/16/25 05:14
Calcium 8.9 mg/dl (8.4-10.2) 04/16/25 05:14
Total Bilirubin 0.7 mg/dl (0.2-1.3) 04/13/25 11:07
AST 18 U/L (14-36) 04/13/25 11:07
ALT 12 U/L (0-35) 04/13/25 11:07
Alkaline Phosphatase 86 U/L (38-126) 04/13/25 11:07
Total Protein 6.1 g/dl (6.3-8.2) L 04/13/25 11:07
Albumin 3.4 g/dl (3.5-5.0) L 04/13/25 11:07
Physical Exam
-
NAD AAO x 3
ABD: Soft, nondistended, minimal suprapubic tenderness. No rebound rigidity or guarding.
[2025-04-16 12:36] VITALS: BP 144/79
--- NOTE | 2025-04-16 14:16 | W.PN.HOSP.TC ---
Addendum entered and electronically signed by Ag Perry MD 04/17/25 13:36:
Acute anemia of unknown etiology
Original Note:
Today's Communication/Plan
-
discharge home
Assessment / Plan
Assessment / Plan
1. Possible colonic mass vs phlegmon
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
- have some lower abd pain/ no n/v/f
- CT a/p images reviewed .
- No SIRS/systemic reaction to strongly suggest active infection
- UA showing pyuria/bacteriuria, no recurrent UTI h/o to suggest colo-vesical fistula.
- CRS evaluated and recommended for inflammatory changes in pelvis to be settled before outpatient colonoscopy in 6 weeks
- was on zosyn, switched to Augmentin for 10 more days discharge.
2.Recent Cryptosporidium infection
- source unclear, not immunocompromised
- repeat stool test neg in ER .
3. Diarrhea - improved
- crypto neg
- Cdiff/Giardia neg as well. stool culture negative as well.
4. H/o Right breast invasive ductal carcinoma, stage III
- s/p lumpectomy, course of Adriamycin/Cytoxan. f/ued by paclitaxel in May
- f/ued by radiation of breast/axiall finishing in jul
- currently on letrozole therapy, to be continued
5. Essential HTN
- maintain on norvasc
DVT PPX - heparin subq
DNR
Anticipated Discharge: Within 24 hours
Subjective/Interval History
-
Date of Service: April 16, 2025
no issues overnight
no abd pain/nausea/vomiting
Objective Data
-
Labs:
Laboratory Results
04/16/25
05:14
WBC 5.9
Hgb 10.5 L
Hct 32.8 L
Plt Count 322
Sodium 138
Potassium 3.7
Chloride 107
Carbon Dioxide 27
BUN 5 L
Creatinine 0.7
Glucose 84
Calcium 8.9
Vital Signs:
Vital Signs
Temp Pulse Resp BP Pulse Ox
98.5 F 74 16 144/79 98
04/16/25 12:36 04/16/25 12:36 04/16/25 12:36 04/16/25 12:36 04/16/25 12:36
I&O
04/15/25 04/16/25 04/17/25
06:59 06:59 06:59
Intake Total 420 / 420 580 / 580
Balance 420 / 420 580 / 580
Review of Systems
-
Respiratory: Reports No Symptoms
Cardiac: Reports No Symptoms
Abdomen/GI: Reports Abdominal Pain; Denies Nausea or Vomiting
Physical Exam
-
General: Cachectic
HEENT: Negative Oxygen
Respiratory: Clear to Auscultation
Cardiac: Regular Rhythm and S1/S2
GI: Tender; Negative Normal Bowel Sounds
Neuro: Awake, Alert and Oriented
Psych: Calm
--- NOTE | 2025-04-16 14:25 | CM ---
MD entered order for discharge.
Spoke with pt she said her son Yonatan will drive her home.
Offered VN she declined need.
IMM reviewed signed on chart.
PLAN Home no needs
--- NOTE | 2025-04-16 16:26 | W.DCSUMMARY ---
Discharge Summary
Discharge Data
Date of Admission: 04/13/25
Date of Discharge: 04/16/25
-
Pending Results: No
Hospital Course
Discharging Physician : Dr Ag Perry
Disposition : To home
Primary care physician : Dr Michell Howard
Principal Discharge diagnosis :
Possible colonic mass versus phlegmonous collection from diverticular disease
Chronic Discharge diagnosis :
Cryptosporidium infection
History of right breast invasive ductal carcinoma stage III status postlumpectomy/chemotherapy/radiation
Essential hypertension
Hospital Course :
Patient is 84-year-old female with above-mentioned past medical history came to ER for having new onset of lower abdominal pain and diarrhea. Patient had recent diagnosis of Cryptosporidium infection and has finished a 13-day course of Flagyl? CT
abdomen pelvis showing possibly large colonic mass in the sigmoid colon concern of malignancy versus phlegmonous process from acute diverticulitis. Patient was started on empiric antibiotics and colorectal surgeon was involved in care. Colorectal
surgery recommended patient to finish a short course of antibiotic with repeat plan for imaging versus colonoscopy in outpatient basis. Patient had some improvement in symptoms within 72 hours. Patient was advanced on solid diet by discharge. At
discharge patient was switched to Augmentin for 10 day. Patient with follow-up with colorectal surgery in office.
Important imaging findings :
None
Procedure findings :
None
Discharge Plan
-
Patient Disposition: Home (Routine Discharge)
Discharge Diagnosis/Procedures: Pelvic phlegmon vs colonic mass
Condition: Fair
Diet: As tolerated and Low Fiber
Activity: As tolerated
Driving Restrictions: As prior to admission
Bathing Restrictions: OK to Shower
Referrals:
Zeke Ha MD [Active, ColoRectal] - in two weeks
Michell Howard CRNP [Family Provider, Family Practice] - in one week
Prescriptions:
New
amoxicillin-pot clavulanate 875-125 mg tablet
1 tab PO BID Qty: 20 0RF
Visbiome 112.5 billion cell capsule
1 cap PO DAILY Qty: 14 0RF
tramadol 50 mg tablet
50 mg PO BID PRN (Reason: Pain) Qty: 10 0RF
Continued
amlodipine 2.5 MG tablet
2.5 mg PO DAILY
letrozole [Femara] 2.5 MG tablet
2.5 mg PO DAILY
cyanocobalamin (vitamin B-12) 1,000 mcg Tablet
1,000 mcg PO DAILY
acetaminophen [Tylenol Extra Strength] 500 mg Tablet
1,000 mg PO DAILYPRN PRN (Reason: mild pain)
ascorbic acid (vitamin C) [Vitamin C] 500 mg Tablet
500 mg PO DAILY
vitamin E 268 mg (400 unit) Capsule
268 mg PO DAILY
Discharge Orders:
Discharge Patient (As Directed); Ordered 04/16/25
Ordered By: Ag Perry
Discharge Date and Time
Discharge Date/Time: 04/16/25 13:46
Print Language: SAUDI ARABIAN
--- NOTE | 2025-04-18 15:43 | PN.CDI ---
CDI
- -
CDI:
Physician Documentation Request
Admit Date: 04/13/25 16:14
Dear Doctor Orlando,
Please review the following and provide your response in the progress notes.
Clinical Indicators:
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
#CBW: 106 lbs 7 oz BMI 19.5 normal range (04/13).
#...Pts weight in March was 115 lbs per pt reflective of a 9 lb (8%) weight loss
#...in 1 month signficant.
#Per previous RD note pt meets AND/ASPEN criteria for moderate protein calorie malnutrition.
Based on the above information and your assessment, which of the following most accurately represents the patient's nutritional status:
Moderate Protein Calorie Malnutrition
Other (please specify)
[place] Criteria ([facility]ist 2017)
2 or more criteria must be present for either
non severe or severe malnutrition
Note that the criteria differs related to the
presence of an acute or chronic illness
Acute Illness Chronic Illness
Energy Intake Non Severe: <75% for >7 days Non Severe: <75% for >1 month
Severe: <50% for >5 days Severe: <75% for >1 month
Weight Loss Non Severe: 1-2% over 1 week Non Severe: 5% over 1 month
5% over 1 month 7.5% over 3 months
7.5% over 3 months 10% over 6 months
1 year N/A 20% over 1 year
Severe: >2% over 1 week Severe: >5% over 1 month
>5% over 1 month >7.5% over 3 months
>7.5% over 3 months >10% over 6 months
1 year N/A >20% over 1 year
Use of terms such as suspected, likely, concern for, or probable (associated with a specific diagnosis that is being evaluated, monitored, or treated as if it exists) are acceptable and can be coded in the inpatient setting, when documented at the
time of discharge.
Thank you,
Nora Perez RN BSN CCDS
CDI Specialist
Please contact via tiger text
Please use your independent medical judgment in providing your response.
== END 2025-04-16 13:46 | disposition home or self-care (01) | DRG 699 ==
LOC: 3 WEST ACU 16:14
PROVIDERS: ADMITTING PHYSICIAN Hospitalist; CONSULT PHYSICIAN Surgery; EMERGENCY PHYSICIAN Student in an Organized Health Care Education/Training Program; FAMILY PHYSICIAN Registered Nurse
DX: N32.1 Vesicointestinal fistula (principal); A07.2 Cryptosporidiosis; R64 Cachexia; Z68.1 Body mass index [BMI] 19.9 or less, adult; K63.9 Disease of intestine, unspecified; I10 Essential (primary) hypertension; Z66 Do not resuscitate; D64.9 Anemia, unspecified
CPT/HCPCS: 74177; 80048; 80053; 81003; 81015; 82378; 83036; 85025; 85027; 87045; 87046; 87086; 87324; 87328; 87329; 87427; 87449; 87798; 89055; 93005; 96365; 99285; Q9967

== ENCOUNTER → 2025-05-13 12:11 | Outpatient (REF) | payer OTHER, SELFPAY ==
[2025-05-13 13:43] LABS: Blood Urea Nitrogen 12 mg/dl (7-17)
== END ==
LOC: REG 12:11
PROVIDERS: ATTENDING PHYSICIAN Surgery; FAMILY PHYSICIAN Registered Nurse
DX: N32.1 Vesicointestinal fistula (principal)
CPT/HCPCS: 36415; 82565; 84520

== ENCOUNTER → 2025-05-17 16:48 | Outpatient (REF) | payer OTHER, SELFPAY | LOC: RAD 16:48 | PROVIDERS: ATTENDING PHYSICIAN Surgery; FAMILY PHYSICIAN Registered Nurse | DX: N32.1 Vesicointestinal fistula (principal) | CPT/HCPCS: 74177; Q9967 ==

== ENCOUNTER 2025-05-26 16:52 | Inpatient (IN) | payer OTHER, SELFPAY ==
[2025-05-26] VITALS (10 sets, daily range): BP systolic 125–158; BP diastolic 62–96; BMI 19.3; BMI 18.4
[2025-05-26 14:13] LABS: Hematocrit 34.1 % (37.0-47.0); Hemoglobin 10.8 g/dL (12.0-16.0); Mean Corp Hgb Conc. 31.7 g/dL (33.0-37.0); Mean Corpuscular Volume 79.9 fL (81.0-99.0); Nucleated Red Blood Cells % 0 %; Platelet Count 336 10^3/uL (130-400); Red Cell Dist. Width 15.9 % (11.5-14.5)
[2025-05-26 14:19] LABS: ALT (SGPT) < 10 U/L (0-35); AST (SGOT) 16 U/L (14-36); Albumin 3.3 g/dl (3.5-5.0); Alkaline Phosphatase 84 U/L (38-126); Blood Urea Nitrogen 9 mg/dl (7-17); Calcium 8.9 mg/dl (8.4-10.2); Carbon Dioxide 26 mmol/L (22-30); Chloride 99 mmol/L (98-107); Glucose 140 mg/dl (70-99); Potassium 3.5 mmol/L (3.5-5.1); Sodium 132 mmol/L (135-145); Total Protein 5.8 g/dl (6.3-8.2); eGFR > 60.00
[2025-05-26 14:20] LABS: Lipase 25 U/L (23-300)
--- NOTE | 2025-05-26 15:28 | ED.GENMED ---
History of Present Illness
General
Chief Complaint: Abdominal Pain
Source: patient
Exam Limitations: none
Time Seen by Provider: 05/26/25 15:11
Nursing documentation reviewed up to this point in time: agreed with
History of Present Illness
History of Present Illness:
Patient presents ED secondary to intermittent abdominal pain associated with nausea and nonbloody diarrhea over the past 2 months. Patient was admitted to the hospital in early April during which time CT scan had revealed colonic mass versus
diverticulitis versus abscess. She was treated with IV antibiotics with plan to perform colonoscopy as an outpatient. At time of discharge, patient was given amoxicillin for additional 5 days, which is now discontinued. Unfortunately, patient is
still experiencing similar symptoms. Patient had repeat CT abdomen pelvis ordered by Dr. Ha, colorectal surgery, which did not reveal any significant changes from her CT scan 1 month prior. Patient is in ED today, as she is continuing to lose
weight and unable to eat due to constant nausea with diarrhea and abdominal cramping sensation. Patient states that she has lost approximately 15 pounds of weight over the past 2 months. Denies fever or chills. Denies vomiting. Denies coughing.
Denies headache. Denies dizziness.
Past History
Past History
ED Past Medical History: None
ED Past Surgical History: None
Social History
Tobacco: Non-smoker
Review of Systems
Review of Systems
Allergies reviewed?: Yes
All Other Systems: ROS reviewed and negative except as documented in HPI and ROS
Constitutional: Reports no symptoms; Denies fever
Respiratory: Reports no symptoms
Cardiac: Reports no symptoms
ABD/GI: Reports abdominal pain, nausea and diarrhea; Denies vomiting
: Reports no symptoms
Musculoskeletal: Reports no symptoms
Skin: Reports no symptoms
Neurological: Reports no symptoms
Phy Exam
Physical Exam
Physical Exam:
Physical Exam
General: no apparent distress, not acutely ill. afebrile
Head: nc/at. eomi
Neck: supple. no meningeal signs.
Heart: s1/s2 regular rate and rhythm
Lungs: no acute respiratory distress. clear bilaterally
Abdomen: normal bowel sounds. not tender. no distention
Neuro: alert and oriented x 3. no focal neurological deficits
Skin: no rash
Psychiatric: well kept. interactive and cooperative
Extremities: no edema. no calf tenderness.
Course
Orders/Labs/Results
Orders:
Orders
05/26/25 13:54
Complete Blood Count/With Diff Urgent
Comprehensive Metabolic Panel Urgent
Lipase Urgent
Magnesium Urgent
Comment: ADD ON
05/26/25 Dinner
Clear Liquid
At Your Request: Full Participation
Does patient need a safe tray?: No
05/26/25 15:14
Add On- LAB Urgent
Tests Added?: magnesium
STOOL [C difficile Antigen & Toxins] Urgent
BETTY Source: Feces/Stool
Specimen Description:
Stool Culture Urgent
BETTY Source: Feces/Stool
Specimen Description:
05/26/25 15:33
0.9% Sodium Chloride 500 ml [Nss] 500 ml IV BOLUS
Pantoprazole [Protonix IV] 40 mg IV NOW STA
05/26/25 16:28
Admit/Transfer Patient As Directed
Co-Sign Provider:
Level of Care: Inpatient admission
Assign to:: Medical/Surgical
Physician / Group: Serina/hospitalist
Diagnosis: abd pain, diarrhea
Reason for Hospitalization: abd pain, diarrhea
Expected length of stay greater than two midnights?: Yes
ELOS- Estimated Length of Stay in days: 3
I certify the patient meets the requirements for IP care: Yes
PRN Pain Medication Management As Directed
May give lesser potent ordered pain med per pt: Yes
preference::
Protocol:: Medication orders for pain may be administered in a
manner that supports deferring to patient preference
when the pt is:
- Requesting an ordered lesser potent pain medication.
Least to most potent pain medications are defined
as: acetaminophen < NSAID < tramadol < opioids
(morphine, oxycodone, hydromorphone).
- Requesting a lesser dose of the same medication IF
ORDERED.
- Requesting a less intrusive route of administration
if both routes are prescribed by the provider (PO <
IV).
05/26/25 16:29
Code Status As Directed
Resuscitation Status: Do not resuscitate
Reached after discussion with pt or family/Healthcare POA: Yes
DNR Bracelet Application ONCE
05/26/25 16:48
Urinalysis Reflex To Culture Urgent
Date Specimen was Collected: 05/26/25
Time Specimen was Collected: 16:44
Urine Microscopic Reflex Cult Urgent
Urine Culture Urgent
BETTY Source: U
Specimen Description:
Date Specimen was Collected: 05/26/25
Time Specimen was Collected: 16:44
05/26/25 18:05
0.9% Sodium Chloride 1000 ml [Nss] 1,000 ml IV 60 mls/hr
Acetaminophen [Tylenol] 1,000 mg PO DAILYPRN PRN mild pain
Bisacodyl [Dulcolax] 10 mg RECTAL [id number] PRN
Docusate W/Senna [Senokot-S] 1 tablet PO BIDPRN PRN
Ondansetron Injectable [Zofran] 4 mg IV Q6HPRN PRN
Polyethylene Glycol Powder [Miralax] 17 grams PO DAILYPRN PRN
Tramadol HCl [Ultram] 50 mg PO BIDPRN PRN mild pain
05/26/25 18:05
ColoRectal Surgery Consult Routine
Consulting Provider: Zeke Ha
Was physician already notified: Yes
Giardia/Cryptosporidium Ag Routine
BETTY Source: Feces/Stool
Specimen Description:
Norovirus by PCR Routine
BETTY Source: Feces/Stool
Specimen Description:
STOOL [C difficile Antigen & Toxins] Routine
BETTY Source: Feces/Stool
Specimen Description:
Stool Culture Routine
BETTY Source: Feces/Stool
Specimen Description:
Activity As Directed
Activity Level: As Tolerated
Vital Signs As Directed
Frequency: Per unit guidelines
DX Deep Vein Thrombosis Video Routine
05/26/25 19:00
Enoxaparin Sodium [Lovenox] 40 mg SC QPM
05/26/25 20:00
Amoxicillin 875 mg/Clav 125 mg [Augmentin 875 mg/125 mg] 1 tablet PO Q12H
05/27/25 06:00
Basic Metabolic Panel IN AM
Complete Blood Count/No Diff IN AM
Magnesium IN AM
05/27/25 08:00
Amlodipine [Norvasc] 2.5 mg PO DAILY
Djpwurgog-Kvj-Gdez [Femara] 2.5 mg PO DAILY
05/28/25 06:00
Basic Metabolic Panel IN AM
Complete Blood Count/No Diff IN AM
05/29/25 06:00
Basic Metabolic Panel IN AM
Complete Blood Count/No Diff IN AM
05/30/25 06:00
Basic Metabolic Panel IN AM
Complete Blood Count/No Diff IN AM
Abnormal Lab Results
05/26/25 05/26/25
13:54 16:48
Hgb 10.8 L g/dL
(12.0-16.0)
Hct 34.1 L %
(37.0-47.0)
MCV 79.9 L fL
(81.0-99.0)
MCH 25.3 L pg
(27.0-31.0)
MCHC 31.7 L g/dL
(33.0-37.0)
RDW 15.9 H %
(11.5-14.5)
Absolute Monos (auto) 0.7 H 10^3/uL
(0.1-0.6)
Monocytes % 9.8 H %
(1.7-9.3)
Sodium 132 L mmol/L
(135-145)
Glucose 140 H mg/dl
(70-99)
Total Protein 5.8 L g/dl
(6.3-8.2)
Albumin 3.3 L g/dl
(3.5-5.0)
Urine Ketones 2+ A
(Negative)
Ur Occult Blood Reflex 3+ A
(Negative)
Leukocyte Esterase Rfl 3+ A
(Negative)
Urine RBC 3-6 A /HPF
(0-2)
Urine WBC (Reflex) 70-80 A /HPF
(0-5)
Urine Bacteria (Reflex) Many A
(Negative)
Urine Albumin (Reflex) 3+ A
(Neg - Trace)
05/26/25 13:54
05/26/25 13:54
Vital Signs
Initial and Last Documented VS:
Initial Vital Signs
Temp Pulse Resp BP Pulse Ox
97.9 F 104 16 127/71 98
05/26/25 13:41 05/26/25 13:41 05/26/25 13:41 05/26/25 13:41 05/26/25 13:41
Last Documented Vital Signs
Temp Pulse Resp BP Pulse Ox
97.8 F 102 18 153/96 97
05/26/25 21:10 05/26/25 21:10 05/26/25 21:10 05/26/25 21:10 05/26/25 21:10
MDM/Problems Addressed
MDM/Problems Addressed:
Blood work reviewed, significant for hyponatremia, likely secondary to poor oral intake, due to ongoing abdominal pain with diarrhea. Multiple CT abdomen pelvis reports from past 2 months reviewed and discussed with on-call colorectal surgery,
, who recommends admission to hospitalist service for IV hydration and symptom control, along with consult to Dr. Ha, primary colorectal surgeon.
*Pulse Oximetry
SaO2: 98
Oxygen Mode of Delivery: Room air
Patient hypoxic: no
*Critical Care Note
Total Time (30-74mins, 75-104mins- exclusive of procedures): Not Applicable
ED Attending Note
-
Portions of this chart may have been created with voice recognition software.� Occasional wrong word or��sound alike� substitutions may have occurred due to the inherent limitations of voice recognition software.
Discharge Plan
Departure
Patient Disposition: Admit
Date of Disposition: 05/26/25
Time of Disposition: 15:56
Admit to: Med/Surg
Presentation/result/management discussed w/ accepting MD/DO: Hospitalist
Discharge Problem:
Abdominal pain, Hyponatremia, Diarrhea
Interventions
Interventions:
*Risk Screen - Suicide Last Done: 05/26/25 13:45
*General Assessment Last Done: 05/26/25 13:41
*Neglect/Abuse Screening Last Done: 05/26/25 13:45
*ED- Fall Risk Assessment Last Done: 05/26/25 15:35
*ED COVID-19 Vaccine History Last Done: 05/26/25 15:35
*Nursing Disposition Last Done: 05/26/25 21:30
PR-Zawecm-Jflqenlsrv Assessment Last Done: 05/26/25 16:00
Discharge Date and Time
Discharge Date/Time: 05/26/25 20:50
[2025-05-26 15:45] LABS: Magnesium 1.8 mg/dl (1.6-2.3)
--- NOTE | 2025-05-26 15:59 | HPS.HSE ---
Family Physician
-
Family Physician: * NONE
Chief Complaint
-
Persistent abdominal cramping, persistent diarrhea
History of Present Illness
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
returned due to persistent and intermittent abdominal pain/cramp associated with nausea and nonbloody diarrhea, now for over 2 months. She also complained of weight loss, approximately 15 pounds over the past 2 months.
Of note, she was recently discharged with antibiotic Augmentin which she can continue. She is currently awaiting outpatient colonoscopy eval per her CRS surgeon Dr. Ha.
Patient had repeat CT AP ordered by Dr. Ha which did not reveal any significant changes from her CT scan 1 month prior.
Denies to other symptoms.
Medical History
Past Medical History
Past Medical History: Reports Cancer (Right breast cancer) and HTN
Past Surgical History: Reports Orthopedic (b/l TKA) and Other (parathyroidectomy, lumpectomy)
Social History
Tobacco: Non-smoker
Alcohol: None
Drug: None
Living: Alone
Family History
Family History: Not pertinent
Allergies / Home Medications
Allergies reflects when Allergies were last updated in [facility].
Home Medications with original date entered in [facility]
Allergy/Medication List:
Allergies
Allergy/AdvReac Type Severity Reaction Status Date / Time
No Known Allergies Allergy Verified 05/26/25 13:41
Home Medications
amlodipine 2.5 mg tablet 2.5 mg PO DAILY 04/08/12
letrozole 2.5 mg tablet (Femara) 2.5 mg PO DAILY 03/08/21
acetaminophen 500 mg tablet (Tylenol Extra Strength) 1,000 mg PO DAILYPRN PRN mild pain 04/13/25
ascorbic acid (vitamin C) 500 mg tablet (Vitamin C) 500 mg PO DAILY 04/13/25
cyanocobalamin (vitamin B-12) 1,000 mcg tablet 1,000 mcg PO DAILY 04/13/25
vitamin E 268 mg (400 unit) capsule 268 mg PO DAILY 04/13/25
amoxicillin 875 mg-potassium clavulanate 125 mg tablet 1 tab PO Q12H 05/26/25
tramadol 50 mg tablet 50 mg PO BIDPRN PRN mild pain 05/26/25
Review of Systems
-
Abdomen/GI: Reports See HPI, Abdominal Pain and Diarrhea
Physical Exam
Vital Signs
Vital Signs
Temp Pulse Resp BP Pulse Ox
36.6 C 95 16 158/90 98
05/26/25 13:41 05/26/25 15:34 05/26/25 13:41 05/26/25 15:33 05/26/25 15:29
Physical Exam
General: Well Developed, Comfortable, Conversant, Appears Chronically Ill and Cachectic
HEENT: NormoCephalic, Anicteric and Atraumatic
Respiratory: Clear and Non Labored Respirations; No Accessory Resp Muscle Use
Cardiac: S1/S2 and Regular Rhythm
Breast: Deferred by me
GI: Soft, Non Distended, Normal Bowel Sounds and Tender (diffuse )
Genito-urinary: Deferred by me
Musculoskeletal: No Clubbing, No Cyanosis and No Edema
Skin: Warm and Dry
Neuro: Awake, Alert and Oriented
Psych: Calm and Intact Judgment/Insight
Laboratory Results
-
05/26/25 13:54
05/26/25 13:54
Laboratory Results
Total Bilirubin 0.6 mg/dl (0.2-1.3) 05/26/25 13:54
AST 16 U/L (14-36) 05/26/25 13:54
ALT < 10 U/L (0-35) 05/26/25 13:54
Alkaline Phosphatase 84 U/L (38-126) 05/26/25 13:54
Lipase 25 U/L (23-300) 05/26/25 13:54
Data Reviewed
-
Lab Data: Labs Reviewed by me
Impression/Plan
-
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
returned due to persistent and intermittent abdominal pain/cramp associated with nausea and nonbloody diarrhea, now for over 2 months. She also complained of weight loss, approximately 15 pounds over the past 2 months.
Of note, she was recently discharged with antibiotic Augmentin which she can continue. She is currently awaiting outpatient colonoscopy eval per her CRS surgeon Dr. Ha.
Patient had repeat CT AP ordered by Dr. Ha which did not reveal any significant changes from her CT scan 1 month prior.
Denies to other symptoms.
A/P:
# Persistent abdominal symptoms likely due to recent diagnosis of colonic mass and possible colo-vesical fistula
Recent CT AP did not show any significant change
No fever or leukocytosis currently, cont [employer]IC[employer] Augmentin until end date
Can check stool culture, C. difficile, norovirus, stool ova parasite
Diet with clear liquid for now with gentle IVF
CRS CS
# Mild hyponatremia
Sodium level 132 on admission, continue to monitor
# H/o Right breast invasive ductal carcinoma, stage III
# s/p lumpectomy, course of Adriamycin/Cytoxan and paclitaxel in May
# s/p radiation
Cont [employer]ICIAN letrozole therapy
# Essential HTN
Cont [employer] Norvasc with holding parameter
DVT PPX: Lovenox SQ
DNR, confirmed with pt
[2025-05-26] MEDS: NSS 500 IV (16:07)
[2025-05-26] MEDS: PROTONIX IV 40 MG IV (16:07)
[2025-05-26 17:06] LABS: Urine Character Slightly Cloudy (Clear)
[2025-05-26 17:15] LABS: Urine Squamous Cell 0-2 /LPF (Few); Urine White Cell 70-80 /HPF (0-5)
[2025-05-26] MEDS: AUGMENTIN 875 MG/125 MG 1 TABLET PO (19:09)
[2025-05-26] MEDS: LOVENOX 40 MG SC (19:11)
[2025-05-26] MEDS: NSS 1000 IV (19:11)
[2025-05-26] MEDS: ULTRAM 50 MG PO (19:22)
[2025-05-26] MEDS: ZOFRAN 4 MG IV (21:36)
[2025-05-27 06:28] LABS: Hematocrit 28.9 % (37.0-47.0); Hemoglobin 9.2 g/dL (12.0-16.0); Mean Corp Hgb Conc. 31.8 g/dL (33.0-37.0); Mean Corpuscular Volume 80.3 fL (81.0-99.0); Platelet Count 276 10^3/uL (130-400); Red Cell Dist. Width 15.8 % (11.5-14.5)
[2025-05-27 06:50] LABS: Blood Urea Nitrogen 5 mg/dl (7-17); Calcium 8.1 mg/dl (8.4-10.2); Carbon Dioxide 26 mmol/L (22-30); Chloride 104 mmol/L (98-107); Estimated Creatinine Clearance 51 ml/min; Glucose 72 mg/dl (70-99); Magnesium 1.7 mg/dl (1.6-2.3); Potassium 3.4 mmol/L (3.5-5.1); Sodium 133 mmol/L (135-145); eGFR > 60.00
[2025-05-27 07:00] VITALS: BP 121/65
[2025-05-27] MEDS: FEMARA 2.5 MG PO (08:26)
[2025-05-27] MEDS: AUGMENTIN 875 MG/125 MG 1 TABLET PO ×2 (08:26→21:11)
[2025-05-27] MEDS: NORVASC 2.5 MG PO (08:27)
[2025-05-27] MEDS: KCL 270 MEQ IV (08:27)
[2025-05-27] MEDS: ULTRAM 50 MG PO ×2 (08:32→21:11)
--- NOTE | 2025-05-27 08:52 | CON.CRS ---
Consultation
-
Date/Time Consultation Requested: 05/26/25
Date/Time Consultation Performed: 05/27/25
Performing Provider: Penny
Reason for Consultation: abdominal pain
Medical History
-
Chief Complaint: abdominal pain
History of Present Illness:
84-year-old female well-known to spine partner Dr. Ha for a diagnosis of phlegmonous colovesical fistula with associated symptoms. She has had a few CTs in the past confirming this. She has been on antibiotics as an outpatient. Plans are for
interval colonoscopy and surgical resection for the issue. She came in to the ER yesterday with ongoing chronic abdominal pain likely related to the issue and feels she cannot function at home or at work. On discussion, she denies nausea or
vomiting. Denies fevers or chills. No recent dysuria. Her main complaint is lower abdominal pain or discomfort which is chronic.
Past Medical History
Past Medical History: HTN and Other (Breast cancer)
Past Surgical History: Other (Orthopedic and parathyroidectomy)
Social History
Tobacco: Non-Smoker
Alcohol: None
Living: Alone
Family History
Family History: Reviewed & Not Pertinent
Allergies / Home Medications
Allergy/AdvReac Type Severity Reaction Status Date / Time
No Known Allergies Allergy Verified 05/26/25 13:41
�Medication �Instructions �Recorded �Confirmed �Type
amlodipine 2.5 mg tablet 2.5 mg PO DAILY 04/08/12 05/26/25 History
letrozole 2.5 mg tablet (Femara) 2.5 mg PO DAILY 03/08/21 05/26/25 History
acetaminophen 500 mg tablet 1,000 mg PO DAILYPRN PRN mild pain 04/13/25 05/26/25 History
(Tylenol Extra Strength)
ascorbic acid (vitamin C) 500 mg 500 mg PO DAILY 04/13/25 05/26/25 History
tablet (Vitamin C)
cyanocobalamin (vitamin B-12) 1,000 mcg PO DAILY 04/13/25 05/26/25 History
1,000 mcg tablet
vitamin E 268 mg (400 unit) capsule 268 mg PO DAILY 04/13/25 05/26/25 History
amoxicillin 875 mg-potassium 1 tab PO Q12H 05/26/25 05/26/25 History
clavulanate 125 mg tablet
tramadol 50 mg tablet 50 mg PO BIDPRN PRN mild pain 05/26/25 05/26/25 History
Review of Systems
-
A 10 point review of systems was completed, and was negative except as per HPI.
Physical Exam
Vital Signs
Temp 98.0 F 05/27/25 07:00
Pulse 77 05/27/25 08:27
Resp Rate 17 05/27/25 07:00
Blood pressure 121/65 05/27/25 08:27
SaO2 96 05/27/25 07:00
05/26/25 05/27/25 05/28/25
06:59 06:59 06:59
Actual Weight 45.473 kg
Body Mass Index (BMI) 18.4
Lab Results / Allergies
05/27/25 05:38
05/27/25 05:38
WBC 5.9 10^3/uL (4.8-10.8) 05/27/25 05:38
Hgb 9.2 g/dL (12.0-16.0) L 05/27/25 05:38
Hct 28.9 % (37.0-47.0) L 05/27/25 05:38
Plt Count 276 10^3/uL (130-400) 05/27/25 05:38
Abs Immat Gran (auto) 0.0 10^3/uL (0-0.05) 05/26/25 13:54
Neutrophils % 64.3 % (42.2-75.2) 05/26/25 13:54
Allergy/AdvReac Type Severity Reaction Status Date / Time
No Known Allergies Allergy Verified 05/26/25 13:41
Physical Exam
General: Well Developed
Respiratory: Clear
Cardiac: Regular Rhythm
GI: Soft, Non Distended and Normal Bowel Sounds (Mild suprapubic)
Neuro: AO x 3
Psych: Calm
Data Reviewed
-
CT Scan: Image Personally Visualized and interpreted and Discussed with Patient
Assessment / Plan
-
84-year-old female with known inflammatory phlegmon with resultant colovesical fistula with plans for interval colonoscopy and resection by my partner Dr. Ha. She has ongoing chronic lower abdominal discomfort, however vital signs and blood work
are unremarkable. I believe her circumstance has not necessarily worsened and is stable given her circumstance. Will advance her diet to falls in anticipation of further advancement to low residue. My partner, Dr. Ha, will likely have a
discussion with her either later today or tomorrow during rounds about plans.
[2025-05-27 12:18] VITALS: BMI 18.4
[2025-05-27] MEDS: NSS 1000 IV (12:50)
[2025-05-27] MEDS: TYLENOL 1000 MG PO (13:05)
--- NOTE | 2025-05-27 13:43 | W.PN.HOSP.TC ---
Today's Communication/Plan
-
see A/P
Assessment / Plan
Assessment / Plan
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
returned due to persistent and intermittent abdominal pain/cramp associated with nausea and nonbloody diarrhea, now for over 2 months. She also complained of weight loss, approximately 15 pounds over the past 2 months.
Of note, she was recently discharged with antibiotic Augmentin which she can continue. She is currently awaiting outpatient colonoscopy eval per her CRS surgeon Dr. Ha.
Patient had repeat CT AP ordered by Dr. Ha which did not reveal any significant changes from her CT scan 1 month prior.
Denies to other symptoms.
A/P:
# Persistent abdominal symptoms likely due to recent diagnosis of colonic mass and possible colo-vesical fistula
Recent repeat CT AP did not show any significant change
No fever or leukocytosis currently, cont [employer] MACHINE SETTER Augmentin until end date 05/30
C. difficile negative, stool ova parasite negative, Norovirus negative
Follow stool culture
Diet advanced to full liquid, anticipate to further advance to low residue.
CRS on board, Dr. Ha to see pt to discuss plan
# Mild hyponatremia
Sodium level 133 today
# Hypokalemia
replete
# Noted urine culture from admission positive for E coli, likely asymptomatic bacteruria
Pt denies to urinary symptoms (no dysuria, no frequency, no urgency)
follow Abx sensitivity
Cont current Augmentin for now
# H/o Right breast invasive ductal carcinoma, stage III
# s/p lumpectomy, course of Adriamycin/Cytoxan and paclitaxel in May
# s/p radiation
Cont [employer] MACHINE SETTER letrozole therapy
# Essential HTN
Cont [employer] MACHINE SETTER Norvasc with holding parameter
DVT PPX: Lovenox SQ
DNR, confirmed with pt
Anticipated Discharge: 24 - 48 hours
Subjective/Interval History
-
Date of Service: May 27, 2025
Objective Data
-
Labs:
Laboratory Results
05/27/25
05:38
WBC 5.9
Hgb 9.2 L
Hct 28.9 L
Plt Count 276
Sodium 133 L
Potassium 3.4 L
Chloride 104
Carbon Dioxide 26
BUN 5 L
Creatinine 0.4 L
Glucose 72
Calcium 8.1 L
Vital Signs:
Vital Signs
Temp Pulse Resp BP Pulse Ox
36.7 C 77 17 121/65 96
05/27/25 07:00 05/27/25 08:27 05/27/25 07:00 05/27/25 08:27 05/27/25 07:00
I&O
05/26/25 05/27/25 05/28/25
06:59 06:59 06:59
Intake Total 740 / 740
Balance 740 / 740
Review of Systems
-
Respiratory: Reports No Symptoms
Cardiac: Reports No Symptoms
Abdomen/GI: Reports Abdominal Pain (mild); Denies Nausea or Vomiting
Physical Exam
-
General: Well Developed, No Apparent Distress, Comfortable and Conversant
HEENT: Normocephalic and Atraumatic; Negative Oxygen
Respiratory: Clear to Auscultation and Non Labored Respirations; Negative Accessory Resp Muscle Use
Cardiac: Regular Rhythm and S1/S2
GI: Soft, Nondistended and Tender (mild, diffuse); Negative Normal Bowel Sounds
Neuro: Awake, Alert and Oriented
Psych: Calm and Intact Judgement/Insight
Data Reviewed
-
Labs: Labs Reviewed by me
[2025-05-27 15:00] VITALS: BP 105/57
[2025-05-27] MEDS: LOVENOX 40 MG SC (18:45)
[2025-05-27 23:00] VITALS: BP 137/77
[2025-05-28 05:59] LABS: Hematocrit 30.5 % (37.0-47.0); Hemoglobin 9.7 g/dL (12.0-16.0); Mean Corp Hgb Conc. 31.8 g/dL (33.0-37.0); Mean Corpuscular Volume 80.9 fL (81.0-99.0); Platelet Count 281 10^3/uL (130-400); Red Cell Dist. Width 15.9 % (11.5-14.5)
[2025-05-28 06:24] LABS: Blood Urea Nitrogen 6 mg/dl (7-17); Calcium 8.4 mg/dl (8.4-10.2); Carbon Dioxide 26 mmol/L (22-30); Chloride 104 mmol/L (98-107); Estimated Creatinine Clearance 51 ml/min; Glucose 74 mg/dl (70-99); Potassium 4.2 mmol/L (3.5-5.1); Sodium 133 mmol/L (135-145); eGFR > 60.00
[2025-05-28 07:00] VITALS: BP 116/59
[2025-05-28] MEDS: AUGMENTIN 875 MG/125 MG 1 TABLET PO (08:25)
[2025-05-28] MEDS: NORVASC 2.5 MG PO (08:25)
[2025-05-28] MEDS: FEMARA 2.5 MG PO (08:26)
[2025-05-28] MEDS: ULTRAM 50 MG PO ×2 (08:32→20:28)
--- NOTE | 2025-05-28 11:36 | W.PN.HOSP.TC ---
Today's Communication/Plan
-
see AP
Assessment / Plan
Assessment / Plan
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
returned due to persistent and intermittent abdominal pain/cramp associated with nausea and nonbloody diarrhea, now for over 2 months. She also complained of weight loss, approximately 15 pounds over the past 2 months.
Of note, she was recently discharged with antibiotic Augmentin which she can continue. She is currently awaiting outpatient colonoscopy eval per her CRS surgeon Dr. Ha.
Patient had repeat CT AP ordered by Dr. Ha which did not reveal any significant changes from her CT scan 1 month prior.
Denies to other symptoms.
A/P:
# Persistent abdominal symptoms likely due to recent diagnosis of colonic mass and possible colo-vesical fistula
Recent repeat CT AP did not show any significant change
No fever or leukocytosis currently, cont [employer]ING MACHINE OPERATOR Augmentin until end date 05/30
C. difficile negative, stool ova parasite negative, Norovirus negative
Follow stool culture
Cont full liquid diet
ID consulted by CRS for Abx recc
CRS Dr. Ha on board, possible ostomy, plan to be determined
# Mild hyponatremia
Sodium level 133 today
# Hypokalemia
repleted
# Noted urine culture from admission positive for E coli (pansensitive), likely asymptomatic bacteruria
Pt denies to urinary symptoms (no dysuria, no frequency, no urgency)
Cont current Augmentin for now
# H/o Right breast invasive ductal carcinoma, stage III
# s/p lumpectomy, course of Adriamycin/Cytoxan and paclitaxel in May
# s/p radiation
Cont [employer] MACHINE OPERATOR letrozole therapy
# Essential HTN
Cont [employer]ING MACHINE OPERATOR Norvasc with holding parameter
DVT PPX: Lovenox SQ
DNR, confirmed with pt
DW CRS Dr Ha
Anticipated Discharge: > 48 hours
Subjective/Interval History
-
Date of Service: May 28, 2025
Objective Data
-
Labs:
Laboratory Results
05/28/25
05:41
WBC 5.8
Hgb 9.7 L
Hct 30.5 L
Plt Count 281
Sodium 133 L
Potassium 4.2
Chloride 104
Carbon Dioxide 26
BUN 6 L
Creatinine 0.5 L
Glucose 74
Calcium 8.4
Vital Signs:
Vital Signs
Temp Pulse Resp BP Pulse Ox
36.7 C 79 16 116/59 98
05/28/25 07:00 05/28/25 07:00 05/28/25 07:00 05/28/25 07:00 05/28/25 07:00
I&O
05/27/25 05/28/25 05/29/25
06:59 06:59 06:59
Intake Total 740 / 740 1080 / 1080 120 / 120
Balance 740 / 740 1080 / 1080 120 / 120
Review of Systems
-
Respiratory: Reports No Symptoms
Cardiac: Reports No Symptoms
Abdomen/GI: Reports Abdominal Pain (mild) and Diarrhea; Denies Nausea or Vomiting
Physical Exam
-
General: Well Developed, No Apparent Distress, Comfortable and Conversant
HEENT: Normocephalic and Atraumatic; Negative Oxygen
Respiratory: Clear to Auscultation and Non Labored Respirations; Negative Accessory Resp Muscle Use
Cardiac: Regular Rhythm and S1/S2
GI: Soft, Nondistended and Tender (mild, diffuse); Negative Normal Bowel Sounds
Neuro: Awake, Alert and Oriented
Psych: Calm and Intact Judgement/Insight
Data Reviewed
-
Labs: Labs Reviewed by me
--- NOTE | 2025-05-28 12:12 | W.PN.CRS1 ---
Today's Communication / Plan
-
ID Eval
Assessment/Plan
-
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 Ha as an outpatient with interim colonoscopy planned; however, given the degree of inflammation has not
been able to be preformed as of yet. She presents with recurrent abdominal symptoms with diarrhea, poor PO tolerance and discomfort. Low colony count ecoli in urine cx in keeping with presence of fistula.
AFVSS
No leukocytosis
Stool studies with negative c-diff, other cx in progress
Plan:
Plan evaluation by ID for ABX planning. No improvement on oral Augmentin
Will eventually require surgery for resection of the portion of affected bowel, given persistent inflammation to site may not be able to have colonoscopy preop
Continue FLD
Will follow
Subjective Data
Subjective Data
Date of Service: May 28, 2025
Pt seen and examined at bedside with Dr Ha. Some nausea after full liquid tray but no vomiting. Having diarrhea but no hematochezia. Pelvic discomfort.
Objective Data
-
Vital Signs
Temp Pulse Resp BP Pulse Ox
98.1 F 79 16 116/59 98
05/28/25 07:00 05/28/25 07:00 05/28/25 07:00 05/28/25 07:00 05/28/25 07:00
Intake & Output
05/27/25 05/28/25 05/29/25
06:59 06:59 06:59
Intake Total 740 / 740 1080 / 1080 120 / 120
Balance 740 / 740 1080 / 1080 120 / 120
Intake:
Oral fluids 240 / 240 1080 / 1080 120 / 120
IV fluids (Total) 500 / 500
Other:
Number of unmeasured voidings 1
Number of approximated SMALL 4
amounts of urine
Number of approximated MODERATE 6 5
amounts of urine
Lab Results
05/28/25 05:41
05/28/25 05:41
Physical Exam
-
General: No Acute Distress
Abdomen: Soft, Non Distended and Tender (mild suprapubic tenderness)
Skin: Warm and Dry
--- NOTE | 2025-05-28 14:59 | CM ---
Patient seen at bedside
IA completed
Lives alone in 1 story home, [address]
PLOF: Independent
Denies DME
Has had [facility] in past for otho procedures/[facility] in past
Denies insecurities
PT eval - no needs
PCP: Michell Howard
Pharmacy: [facility]
PLAN: home, no needs anticipated, when stable
[2025-05-28 15:00] VITALS: BP 127/68
--- NOTE | 2025-05-28 15:13 | CON.ID ---
Consultation
-
Date/Time Consultation Requested: 05/28/2025 1014
Date/Time Consultation Performed: 05/28/2025 1515
Requesting Provider: Dr. Ha
Performing Provider: Dr. De La Paz
Reason for Consultation: Colovesicular fistula
Chief Complaint / Past History
History of Present Illness
Ameena Pillai is an 84-year-old female being evaluated at the request of Dr. Ha in regards to a colovesicular fistula. History is obtained from chart review, along with patient interview.
The patient presented to the emergency room on 05/26 secondary to intermittent abdominal discomfort with associated nausea and diarrhea all approximately 2 months time. The patient had been previously admitted to [facility] in early April, at
which time a CAT scan revealed abdominal abnormality (colonic mass versus diverticulitis versus abscess). The patient was discharged on 04/16, to continue for another 10 days of Augmentin. Plan was to perform outpatient colonoscopy, but due to
ongoing pain, the patient presented back to the emergency room.
Patient reports that she has lost approximately 15 pounds over the prior 2 months. She reports constant nausea with diarrhea and abdominal cramping.
Past History
Additional Past Medical History:
Diverticular disease
Hx breast CA
HTN
Additional Past Surgical History:
Bilateral knee replacement
Parathyroidectomy
Allergy History:
No Known Allergies Allergy (Verified 05/26/25 13:41)
Medications Reviewed: Yes
Current Antibiotics:
Augmentin 875 mg p.o. q.12 hours
Social History
Tobacco: Non-Smoker
Alcohol: None
Drug: None
Personal: Single
Living: Alone
Employment: Retired
Family History
Family History: Not Pertinent
Review of Systems
Vital Signs
Temp Pulse Resp BP Pulse Ox
98.1 F 79 16 116/59 98
05/28/25 07:00 05/28/25 07:00 05/28/25 07:00 05/28/25 07:00 05/28/25 07:00
Physical Exam
Physical Exam
Constitutional: No Acute Distress, Comfortable and Non-toxic
Eyes: No Conjunctival Hemorrhage and Sclera Anicteric
Oral: No Thrush and No Ulcers
Cardiovascular: Regular Rate and S1/S2; Negative S3/S4
Pulmonary: Clear; Negative Wheezes or Rales
Gastrointestinal: Soft, Tender, Non Distended, Normal Bowel Sounds, No Rebound and No Guarding
Genito-Urinary: Negative Miranda
Extremities: Edema; Negative Clubbing or Cyanosis
Skin: Warm and Dry; Negative Rash or Jaundice
Neurological: Awake and Alert
Psychological: Calm
Lab / Diagnostic Study Results
05/28/25 05:41
05/28/25 05:41
Abs Immat Gran (auto) 0.0 10^3/uL (0-0.05) 05/26/25 13:54
Absolute Neuts (auto) 4.5 10^3/uL (1.4-6.5) 05/26/25 13:54
Absolute Lymphs (auto) 1.8 10^3/uL (1.2-3.4) 05/26/25 13:54
Absolute Monos (auto) 0.7 10^3/uL (0.1-0.6) H 05/26/25 13:54
Absolute Basos (auto) 0.0 10^3/uL (0-0.2) 05/26/25 13:54
Immature Gran % 0.1 % (0-0.5) 05/26/25 13:54
Neutrophils % 64.3 % (42.2-75.2) 05/26/25 13:54
Lymphocytes % 25.3 % (20.5-51.1) 05/26/25 13:54
Monocytes % 9.8 % (1.7-9.3) H 05/26/25 13:54
Eosinophils % 0.1 % (0-6) 05/26/25 13:54
Basophils % 0.4 % (0-2) 05/26/25 13:54
Ur Squamous Epith Cells 0-2 /LPF (Few) 05/26/25 16:48
Microbiology Results
Micro:
05/27/25 08:42 Salmonella/Shigella Culture - Preliminary
Feces/Stool Culture in Progress
Campylobacter Culture - Preliminary
Culture in Progress
Shiga Toxin Test - Pending
05/26/25 16:48 Urine Culture - Final
Urine Escherichia coli
05/27/25 08:42 Cryptosporidium/Giardia - Final
Feces/Stool Negative for Cryptosporidium and/or Giardia Lamblia
antigens.
C. difficile GDH Antigen & Toxins - Final
Negative for toxigenic C.difficile
- Final
Negative for Norovirus GI and GII.
Imaging:
05/17/2025 CT abdomen/pelvis: Stable probable phlegmonous process about the sigmoid colon and bladder probably due to acute diverticulitis. Underlying colonic mass not excluded. Associated air in the bladder. Again, colovesical fistula and bladder
infection are possibilities. Oral contrast is not present in this region. Further evaluation is recommended. To evaluate the bladder, a cystogram under fluoroscopy probably would be the best test versus CT cystogram. To evaluate the bowel, a repeat
CT exam with oral contrast only and delayed imaging to assure contrast is in the distal colon or barium enema with nonionic contrast could be performed.
Assessment / Plan
Phlegmonous process around sigmoid colon and bladder
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
Abdominal pain
Nausea/diarrhea
Weight loss
Hx breast CA
HTN
Recommendations:
Transition Augmentin to ertapenem.
Monitor white count and temperature curve.
Follow abdominal discomfort level.
Care Review
Plan reviewed with: Physician (CRS)
[2025-05-28] MEDS: INVANZ 60 MG IV (16:37)
[2025-05-28] MEDS: LOVENOX 40 MG SC (17:07)
[2025-05-28] MEDS: VISBIOME 1 CAP PO (20:28)
[2025-05-28 23:15] VITALS: BP 146/76
[2025-05-29 06:36] LABS: Hematocrit 33.3 % (37.0-47.0); Hemoglobin 10.6 g/dL (12.0-16.0); Mean Corp Hgb Conc. 31.8 g/dL (33.0-37.0); Mean Corpuscular Volume 80.0 fL (81.0-99.0); Platelet Count 310 10^3/uL (130-400); Red Cell Dist. Width 15.8 % (11.5-14.5)
[2025-05-29 06:52] LABS: Blood Urea Nitrogen 3 mg/dl (7-17); Calcium 8.4 mg/dl (8.4-10.2); Carbon Dioxide 29 mmol/L (22-30); Chloride 102 mmol/L (98-107); Estimated Creatinine Clearance 51 ml/min; Glucose 66 mg/dl (70-99); Potassium 3.7 mmol/L (3.5-5.1); Sodium 135 mmol/L (135-145); eGFR > 60.00
[2025-05-29 07:00] VITALS: BP 136/78
[2025-05-29] MEDS: ULTRAM 50 MG PO ×2 (08:26→21:27)
[2025-05-29] MEDS: ZOFRAN 4 MG IV (08:32)
[2025-05-29] MEDS: VISBIOME 1 CAP PO (08:33)
[2025-05-29] MEDS: FEMARA 2.5 MG PO (08:33)
[2025-05-29] MEDS: NORVASC 2.5 MG PO (08:33)
--- NOTE | 2025-05-29 10:41 | W.PN.CRS1 ---
Today's Communication / Plan
-
Advance to low residue diet.
IV antibiotics.
Surgery planning in progress. I provided her with an ERAS booklet.
Assessment/Plan
-
84 yo female with phlegmonous process about the sigmoid colon most likely due to diverticular disease with an associated colovesical fistula. She
was in the process of scheduling a colonoscopy and surgery but due to persistent pain and diarrhea, she presented to the ED.
AFVSS
No leukocytosis
Stool studies with negative c-diff, other cx negative.
Plan:
Currently on IV antibiotics and if she improves, the plan is for discharge and surgery in a few weeks. If her symptoms persist, possible surgery on 06/03/25.
Appreciate ID input.
Advance to low residue diet.
Subjective Data
Subjective Data
Date of Service: May 29, 2025
Her pain is about the same, manageable with Tramadol. She is tolerating full liquids and moving her bowels. She had loose stools with incontinence that she relates to Invanz. C diff and cultures negative.
Objective Data
-
Vital Signs
Temp Pulse Resp BP Pulse Ox
97.9 F 91 17 136/78 97
05/29/25 07:00 05/29/25 08:33 05/29/25 07:00 05/29/25 08:33 05/29/25 07:00
Intake & Output
05/28/25 05/29/25 05/30/25
06:59 06:59 06:59
Intake Total 1080 / 1080 1800 / 1800
Balance 1080 / 1080 1800 / 1800
Intake:
Oral fluids 1080 / 1080 1800 / 1800
Other:
Number of approximated SMALL 4
amounts of urine
Number of approximated MODERATE 5 4
amounts of urine
Number of unmeasured liquid
stools
Rectum 1
Lab Results
05/29/25 06:07
05/29/25 06:07
Physical Exam
-
General: No Acute Distress
Abdomen: Soft, Non Distended and Non Tender
Extremities: No Calf Tenderness
--- NOTE | 2025-05-29 11:19 | W.PN.HOSP.TC ---
Today's Communication/Plan
-
adv to LRD
Ertapenem
Surgery Planning
Assessment / Plan
Assessment / Plan
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
returned due to persistent and intermittent abdominal pain/cramp associated with nausea and nonbloody diarrhea, now for over 2 months. She also complained of weight loss, approximately 15 pounds over the past 2 months.
Of note, she was recently discharged with antibiotic Augmentin which she can continue. She is currently awaiting outpatient colonoscopy eval per her CRS surgeon Dr. Ha.
Patient had repeat CT AP ordered by Dr. Ha which did not reveal any significant changes from her CT scan 1 month prior.
Denies to other symptoms.
A/P:
# Persistent abdominal symptoms likely due to recent diagnosis of colonic mass and possible colo-vesical fistula
Recent repeat CT AP did not show any significant change
Stop augmentin, Start Ertapenem
ID consulted by CRS
C. difficile negative, stool ova parasite negative, Norovirus negative
Follow stool culture
Adv to LRD
CRS Dr. Ha on board, possible ostomy, plan to be determined
# Mild hyponatremia
trend
# Hypokalemia
monitor and replete
# Noted urine culture from admission positive for E coli (pansensitive), likely asymptomatic bacteruria
Pt denies to urinary symptoms (no dysuria, no frequency, no urgency)
received augmentin, now on Ertapenem
# H/o Right breast invasive ductal carcinoma, stage III
# s/p lumpectomy, course of Adriamycin/Cytoxan and paclitaxel in May
# s/p radiation
Cont OUTSIDE RIGGER letrozole therapy
# Essential HTN
Cont OUTSIDE RIGGER Norvasc with holding parameter
DVT PPX: Lovenox SQ
DNR, confirmed with pt
DW CRS Dr Ha
Anticipated Discharge: > 48 hours
Subjective/Interval History
-
Date of Service: May 29, 2025
No acute events overnight, tolerating diet, can advance to low residue diet
Objective Data
-
Labs:
Laboratory Results
05/29/25
06:07
WBC 6.0
Hgb 10.6 L
Hct 33.3 L
Plt Count 310
Sodium 135
Potassium 3.7
Chloride 102
Carbon Dioxide 29
BUN 3 L
Creatinine 0.5 L
Glucose 66 L
Calcium 8.4
Vital Signs:
Vital Signs
Temp Pulse Resp BP Pulse Ox
97.9 F 91 17 136/78 97
05/29/25 07:00 05/29/25 08:33 05/29/25 07:00 05/29/25 08:33 05/29/25 07:00
I&O
05/28/25 05/29/25 05/30/25
06:59 06:59 06:59
Intake Total 1080 / 1080 1800 / 1800
Balance 1080 / 1080 1800 / 1800
Review of Systems
-
Respiratory: Reports No Symptoms
Cardiac: Reports No Symptoms
Abdomen/GI: Reports Abdominal Pain (mild) and Diarrhea; Denies Nausea or Vomiting
Physical Exam
-
General: Well Developed, No Apparent Distress, Comfortable and Conversant
HEENT: Normocephalic and Atraumatic; Negative Oxygen
Respiratory: Clear to Auscultation and Non Labored Respirations; Negative Accessory Resp Muscle Use
Cardiac: Regular Rhythm and S1/S2
GI: Soft, Nondistended and Tender (mild, diffuse); Negative Normal Bowel Sounds
Neuro: Awake, Alert and Oriented
Psych: Calm and Intact Judgement/Insight
Data Reviewed
-
CT Scan: Report Reviewed by me
Labs: Labs Reviewed by me
[2025-05-29 15:00] VITALS: BP 133/74
[2025-05-29] MEDS: INVANZ 60 MG IV (16:44)
[2025-05-29] MEDS: LOVENOX 40 MG SC (16:44)
[2025-05-30 06:00] LABS: Hematocrit 31.4 % (37.0-47.0); Hemoglobin 10.1 g/dL (12.0-16.0); Mean Corp Hgb Conc. 32.2 g/dL (33.0-37.0); Mean Corpuscular Volume 80.1 fL (81.0-99.0); Platelet Count 301 10^3/uL (130-400); Red Cell Dist. Width 15.8 % (11.5-14.5)
[2025-05-30 06:24] LABS: ALT (SGPT) < 10 U/L (0-35); AST (SGOT) 13 U/L (14-36); Albumin 2.6 g/dl (3.5-5.0); Alkaline Phosphatase 76 U/L (38-126); Blood Urea Nitrogen 6 mg/dl (7-17); Calcium 8.6 mg/dl (8.4-10.2); Carbon Dioxide 30 mmol/L (22-30); Chloride 102 mmol/L (98-107); Estimated Creatinine Clearance 51 ml/min; Glucose 96 mg/dl (70-99); Potassium 3.7 mmol/L (3.5-5.1); Sodium 134 mmol/L (135-145); Total Protein 5.0 g/dl (6.3-8.2); eGFR > 60.00
[2025-05-30 07:39] VITALS: BP 126/76
[2025-05-30] MEDS: VISBIOME 1 CAP PO (08:34)
[2025-05-30] MEDS: FEMARA 2.5 MG PO (08:35)
[2025-05-30] MEDS: NORVASC 2.5 MG PO (08:39)
[2025-05-30] MEDS: ULTRAM 50 MG PO (08:52)
--- NOTE | 2025-05-30 09:45 | W.PN.CRS1 ---
Today's Communication / Plan
-
OR 06/03
continue antibiotics per ID
Assessment/Plan
-
84 yo female with phlegmonous process about the sigmoid colon most likely due to diverticular disease with an associated colovesical fistula. She
was in the process of scheduling a colonoscopy and surgery but due to persistent pain and diarrhea, she presented to the ED.
AFVSS
WBC 8.4
Stool studies with negative c-diff, other cx negative.
Plan:
- Continue IV antibiotics per ID
-OR tentatively scheduled for Friday, 06/[address] Ha
-Wound RN for stoma marking
-TEDS/SCDS ordered for DVT prophylaxis
-Will hold Lovenox one day prior to OR
-I/S q1 hour while awake
-Change diet to regular
Subjective Data
Subjective Data
Date of Service: May 30, 2025
Patient states she had some loose stools overnight. Denies nausea or vomiting. She is tolerating a diet. She currently has no complaints.
Objective Data
-
Vital Signs
Temp Pulse Resp BP Pulse Ox
99.0 F 88 22 126/76 95
05/30/25 07:39 05/30/25 08:39 05/30/25 07:39 05/30/25 08:39 05/30/25 07:39
Intake & Output
05/29/25 05/30/25 05/31/25
06:59 06:59 06:59
Intake Total 1800 / 1800 960 / 960 240 / 240
Balance 1800 / 1800 960 / 960 240 / 240
Intake:
Oral fluids 1800 / 1800 960 / 960 240 / 240
Other:
Number of approximated MODERATE 4 5 2
amounts of urine
Number of unmeasured liquid
stools
Rectum 1
Lab Results
05/30/25 05:34
07/28/25 05:34
Physical Exam
-
General: No Acute Distress and AOx3
Abdomen: Soft, Non Distended and Non Tender
Skin: Warm
--- NOTE | 2025-05-30 11:39 | W.PN.ID1 ---
Date of Service
Date of Service: May 30, 2025
Today's Communication
Continue antibiotics.
Assessment / Plan
Phlegmonous process around sigmoid colon and bladder
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
Abdominal pain
Nausea/diarrhea
Weight loss
Hx breast CA
HTN
Recommendations:
Continue ertapenem.
Monitor white count and temperature curve.
Follow abdominal discomfort level.
For potential surgery later this week.
����������������������������������������������������������
Chief Complaint
-: Other (Abdominal phlegmon)
Subjective / Review of Systems
Patient seen and examined. Reports some ongoing abdominal discomfort, but also relates several episodes of diarrhea following administration of ertapenem.
Review of Systems: No Fever and No Chills
Vital Signs / Physical Exam
Vital Signs
Vital Signs
Temp Pulse Resp BP Pulse Ox
99.0 F 88 22 126/76 95
05/30/25 07:39 05/30/25 08:39 05/30/25 07:39 05/30/25 08:39 05/30/25 07:39
Physical Exam
Constitutional: No Acute Distress, Comfortable, Chronically Ill and Non-toxic
Eyes: Sclera Anicteric
Cardiovascular: S1/S2; Negative S3/S4
Pulmonary: Non Labored
Gastrointestinal: Soft, Tender (mild), Non Distended and Normal Bowel Sounds
Extremities: Negative Edema, Cyanosis or Erythema
Skin: Warm and Dry; Negative Rash or Jaundice
Neurological: Awake and Alert
Psychological: Calm
Objective Data
Lab Data
Lab Results
05/30/25 05:34
05/30/25 05:34
Estimated Creat Clear 51 ml/min 05/30/25 05:34
Total Bilirubin 0.4 mg/dl (0.2-1.3) 05/30/25 05:34
AST 13 U/L (14-36) L 05/30/25 05:34
ALT < 10 U/L (0-35) 05/30/25 05:34
Alkaline Phosphatase 76 U/L (38-126) 05/30/25 05:34
Most recent labs reviewed.
Micro Results:
05/27/25 08:42 Salmonella/Shigella Culture - Final
Feces/Stool No Salmonella, Shigella, Aeromonas or Plesiomonas species
isolated.
Campylobacter Culture - Final
No Campylobacter species isolated.
Shiga Toxin Test - Final
No E. coli Shiga Toxin 1 or 2 detected.
05/26/25 16:48 Urine Culture - Final
Urine Escherichia coli
05/27/25 08:42 Cryptosporidium/Giardia - Final
Feces/Stool Negative for Cryptosporidium and/or Giardia Lamblia
antigens.
C. difficile GDH Antigen & Toxins - Final
Negative for toxigenic C.difficile
- Final
Negative for Norovirus GI and GII.
Imaging:
05/17/2025 CT abdomen/pelvis: Stable probable phlegmonous process about the sigmoid colon and bladder probably due to acute diverticulitis. Underlying colonic mass not excluded. Associated air in the bladder. Again, colovesical fistula and bladder
infection are possibilities. Oral contrast is not present in this region. Further evaluation is recommended. To evaluate the bladder, a cystogram under fluoroscopy probably would be the best test versus CT cystogram. To evaluate the bowel, a repeat
CT exam with oral contrast only and delayed imaging to assure contrast is in the distal colon or barium enema with nonionic contrast could be performed.
--- NOTE | 2025-05-30 12:10 | W.PN.HOSP.TC ---
Today's Communication/Plan
-
Continue IV antibiotics, regular diet
OR tentatively on June 03
Assessment / Plan
Assessment / Plan
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
returned due to persistent and intermittent abdominal pain/cramp associated with nausea and nonbloody diarrhea, now for over 2 months. She also complained of weight loss, approximately 15 pounds over the past 2 months.
Of note, she was recently discharged with antibiotic Augmentin which she can continue. She is currently awaiting outpatient colonoscopy eval per her CRS surgeon Dr. Ha.
Patient had repeat CT AP ordered by Dr. Ha which did not reveal any significant changes from her CT scan 1 month prior.
Denies to other symptoms.
A/P:
# Persistent abdominal symptoms likely due to recent diagnosis of colonic mass and possible colo-vesical fistula
Recent repeat CT AP did not show any significant change
Stop augmentin, switch to ertapenem and continue
ID consulted by CRS
C. difficile negative, stool ova parasite negative, Norovirus negative
Follow stool culture
Continue low residue diet
CRS plan for robotic LAR with ureteral stents on June 03
# Mild hyponatremia
trend
# Hypokalemia
monitor and replete
# Noted urine culture from admission positive for E coli (pansensitive), likely asymptomatic bacteruria
Pt denies to urinary symptoms (no dysuria, no frequency, no urgency)
received augmentin, now on Ertapenem
# H/o Right breast invasive ductal carcinoma, stage III
# s/p lumpectomy, course of Adriamycin/Cytoxan and paclitaxel in May
# s/p radiation
Cont SCULPTURE INSTRUCTOR letrozole therapy
# Essential HTN
Cont SCULPTURE INSTRUCTOR Norvasc with holding parameter
DVT PPX: Lovenox SQ
DNR, confirmed with pt
Anticipated Discharge: > 48 hours
Subjective/Interval History
-
Date of Service: May 30, 2025
Tolerated low residue diet, some loose stools after IV antibiotics yesterday
Objective Data
-
Labs:
Laboratory Results
05/30/25
05:34
WBC 8.4
Hgb 10.1 L
Hct 31.4 L
Plt Count 301
Sodium 134 L
Potassium 3.7
Chloride 102
Carbon Dioxide 30
BUN 6 L
Creatinine 0.5 L
Glucose 96
Calcium 8.6
Total Bilirubin 0.4
AST 13 L
ALT < 10
Alkaline Phosphatase 76
Vital Signs:
Vital Signs
Temp Pulse Resp BP Pulse Ox
99.0 F 88 22 126/76 95
05/30/25 07:39 05/30/25 08:39 05/30/25 07:39 05/30/25 08:39 05/30/25 07:39
I&O
05/29/25 05/30/25 05/31/25
06:59 06:59 06:59
Intake Total 1800 / 1800 960 / 960 240 / 240
Balance 1800 / 1800 960 / 960 240 / 240
Review of Systems
-
History Source: Patient
All other systems: Not reviewed unless documented
Physical Exam
-
General: Well Developed, No Apparent Distress, Comfortable and Conversant
HEENT: Normocephalic and Atraumatic; Negative Oxygen
Respiratory: Clear to Auscultation and Non Labored Respirations; Negative Accessory Resp Muscle Use
Cardiac: Regular Rhythm and S1/S2
GI: Soft, Nondistended and Tender (mild, diffuse); Negative Normal Bowel Sounds
Neuro: Awake, Alert and Oriented
Psych: Calm and Intact Judgement/Insight
[2025-05-30 15:44] VITALS: BP 128/70
[2025-05-30] MEDS: INVANZ 60 MG IV (15:53)
--- NOTE | 2025-05-30 16:03 | WOUNDNOTE ---
YOON RN NOTE: Stoma sited all quadrants as requested by Dr. Ha. Assessed patient lying, sitting and standing. Identified rectus muscle, avoided creases and scars. Patient had several creases mainly prominent when sitting, adjusted sites. LUQ
marked 6cm from midline and 2cm proximal from umbilical line. LLQ marked 5.5cm from midline and 3cm distal from umbilical line. RUQ marked 7cm from midline and 1.5cm proximal from umbilical line. RLQ marked 7cm from midline and 3cm distal from
umbilical line. Answered all questions and patient aware will follow next week if has an ostomy.
[2025-05-30] MEDS: LOVENOX 40 MG SC (18:38)
[2025-05-30 23:00] VITALS: BP 133/73
[2025-05-31 06:10] LABS: Hematocrit 31.1 % (37.0-47.0); Hemoglobin 9.9 g/dL (12.0-16.0); Mean Corp Hgb Conc. 31.8 g/dL (33.0-37.0); Mean Corpuscular Volume 79.9 fL (81.0-99.0); Platelet Count 279 10^3/uL (130-400); Red Cell Dist. Width 15.9 % (11.5-14.5)
[2025-05-31 06:26] LABS: INR 1.07; PT 14.4 Sec (11.4-14.6)
[2025-05-31 06:27] LABS: APTT 34.7 Sec (23.4-35.0)
[2025-05-31 06:32] LABS: ALT (SGPT) < 10 U/L (0-35); AST (SGOT) 14 U/L (14-36); Albumin 2.5 g/dl (3.5-5.0); Alkaline Phosphatase 66 U/L (38-126); Blood Urea Nitrogen 10 mg/dl (7-17); Calcium 8.0 mg/dl (8.4-10.2); Carbon Dioxide 29 mmol/L (22-30); Chloride 104 mmol/L (98-107); Estimated Creatinine Clearance 51 ml/min; Glucose 99 mg/dl (70-99); Potassium 3.7 mmol/L (3.5-5.1); Sodium 135 mmol/L (135-145); Total Protein 4.7 g/dl (6.3-8.2); eGFR > 60.00
[2025-05-31 07:00] VITALS: BP 124/61
--- NOTE | 2025-05-31 08:35 | PTCARENOTE ---
Pt c/o ongoing diarrhea, requested probiotic, made aware, new order provided, see MAR.
[2025-05-31] MEDS: NORVASC 2.5 MG PO (08:40)
[2025-05-31] MEDS: FEMARA 2.5 MG PO (08:41)
--- NOTE | 2025-05-31 09:32 | CM ---
CM reviewed chart- ADC >48 hours
Pt tentatively scheduled for LAR on 06/03
Continues on abx
CM will follow for post-op needs
Discharge Disposition- home, follow for post-op needs
[2025-05-31] MEDS: ULTRAM 50 MG PO ×2 (10:51→18:08)
--- NOTE | 2025-05-31 12:15 | W.PN.HOSP.TC ---
Today's Communication/Plan
-
Continue IV antibiotics, regular diet
add on probiotics
OR tentatively on June 03
Assessment / Plan
Assessment / Plan
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
returned due to persistent and intermittent abdominal pain/cramp associated with nausea and nonbloody diarrhea, now for over 2 months. She also complained of weight loss, approximately 15 pounds over the past 2 months.
Of note, she was recently discharged with antibiotic Augmentin which she can continue. She is currently awaiting outpatient colonoscopy eval per her CRS surgeon Dr. Ha.
Patient had repeat CT AP ordered by Dr. Ha which did not reveal any significant changes from her CT scan 1 month prior.
Denies to other symptoms.
A/P:
# Persistent abdominal symptoms likely due to recent diagnosis of colonic mass and possible colo-vesical fistula
Recent repeat CT AP did not show any significant change
Stop augmentin, switch to ertapenem and continue; added on probiotics for diarrhea with abx
ID consulted by CRS
C. difficile negative, stool ova parasite negative, Norovirus negative
Follow stool culture
Continue low residue diet
CRS plan for robotic LAR with ureteral stents on June 03
# Mild hyponatremia
trend
# Hypokalemia
monitor and replete
# Noted urine culture from admission positive for E coli (pansensitive), likely asymptomatic bacteruria
Pt denies to urinary symptoms (no dysuria, no frequency, no urgency)
received augmentin, now on Ertapenem
# H/o Right breast invasive ductal carcinoma, stage III
# s/p lumpectomy, course of Adriamycin/Cytoxan and paclitaxel in May
# s/p radiation
Cont JEWEL FLAT [employer]FACER letrozole therapy
# Essential HTN
Cont JEWEL FLAT [employer]FACER Norvasc with holding parameter
DVT PPX: Lovenox SQ
DNR, confirmed with pt
Anticipated Discharge: > 48 hours
Subjective/Interval History
-
Date of Service: May 31, 2025
No acute events, tolerating diet, with minimal diarrhea after antibiotics
Objective Data
-
Labs:
Laboratory Results
05/31/25
05:43
WBC 6.0
Hgb 9.9 L
Hct 31.1 L
Plt Count 279
PT 14.4
INR 1.07
APTT 34.7
Sodium 135
Potassium 3.7
Chloride 104
Carbon Dioxide 29
BUN 10
Creatinine 0.4 L
Glucose 99
Calcium 8.0 L
Total Bilirubin 0.3
AST 14
ALT < 10
Alkaline Phosphatase 66
Vital Signs:
Vital Signs
Temp Pulse Resp BP Pulse Ox
98.3 F 77 16 124/61 95
05/31/25 07:00 05/31/25 08:40 05/31/25 07:00 05/31/25 08:40 05/30/25 23:00
I&O
05/30/25 05/31/25 06/01/25
06:59 06:59 06:59
Intake Total 960 / 960 1500 / 1500 240 / 240
Balance 960 / 960 1500 / 1500 240 / 240
Review of Systems
-
History Source: Patient
All other systems: Not reviewed unless documented
Physical Exam
-
General: Well Developed, No Apparent Distress, Comfortable and Conversant
HEENT: Normocephalic and Atraumatic; Negative Oxygen
Respiratory: Clear to Auscultation and Non Labored Respirations; Negative Accessory Resp Muscle Use
Cardiac: Regular Rhythm and S1/S2
GI: Soft, Nondistended and Tender (mild, diffuse); Negative Normal Bowel Sounds
Neuro: Awake, Alert and Oriented
Psych: Calm and Intact Judgement/Insight
Data Reviewed
-
CT Scan: Report Reviewed by me
Labs: Labs Reviewed by me
[2025-05-31] MEDS: VISBIOME 1 CAP PO (12:59)
--- NOTE | 2025-05-31 14:11 | W.PN.CRS1 ---
Today's Communication / Plan
-
OR 06/03
continue antibiotics per ID
Assessment/Plan
-
84 yo female with phlegmonous process about the sigmoid colon most likely due to diverticular disease with an associated colovesical fistula. She
was in the process of scheduling a colonoscopy and surgery but due to persistent pain and diarrhea, she presented to the ED.
AFVSS
WBC remains normal
Stool studies with negative c-diff, other cx negative.
Plan:
- Continue IV antibiotics per ID
-OR scheduled for Friday, 06/[address] Ha
-stoma marking complete
-TEDS/SCDS ordered for DVT prophylaxis
-Will hold Lovenox one day prior to OR
-I/S q1 hour while awake
Subjective Data
Subjective Data
Date of Service: May 31, 2025
She feels she may have eaten too much and had some lower abdominal pain and diarrhea.
Objective Data
-
Vital Signs
Temp Pulse Resp BP Pulse Ox
98.3 F 77 16 124/61 95
05/31/25 07:00 05/31/25 08:40 05/31/25 07:00 05/31/25 08:40 05/30/25 23:00
Intake & Output
05/30/25 05/31/25 06/01/25
06:59 06:59 06:59
Intake Total 960 / 960 1500 / 1500 240 / 240
Balance 960 / 960 1500 / 1500 240 / 240
Intake:
Oral fluids 960 / 960 1500 / 1500 240 / 240
Other:
Number of approximated MODERATE 5 2 3
amounts of urine
Number of approximated LARGE 4
amounts of urine
Number of unmeasured liquid
stools
Rectum 1
Lab Results
05/31/25 05:43
05/31/25 05:43
Physical Exam
-
General: No Acute Distress
Abdomen: Soft, Non Distended and Tender (minimal, lower abdomen)
Extremities: No Calf Tenderness
[2025-05-31 15:10] VITALS: BP 121/69
[2025-05-31] MEDS: INVANZ 60 MG IV (16:48)
[2025-05-31] MEDS: FLUSH (NSS) 2 FLUSH IV (16:49)
[2025-05-31] MEDS: LOVENOX 40 MG SC (18:05)
[2025-05-31] MEDS: TYLENOL 1000 MG PO (20:23)
[2025-05-31 23:08] VITALS: BP 125/71
[2025-06-01 06:29] LABS: Hematocrit 34.1 % (37.0-47.0); Hemoglobin 10.9 g/dL (12.0-16.0); Mean Corp Hgb Conc. 32.0 g/dL (33.0-37.0); Mean Corpuscular Volume 79.9 fL (81.0-99.0); Platelet Count 284 10^3/uL (130-400); Red Cell Dist. Width 15.9 % (11.5-14.5)
[2025-06-01 06:48] LABS: ALT (SGPT) < 10 U/L (0-35); AST (SGOT) 15 U/L (14-36); Albumin 3.0 g/dl (3.5-5.0); Alkaline Phosphatase 87 U/L (38-126); Blood Urea Nitrogen 8 mg/dl (7-17); Calcium 8.8 mg/dl (8.4-10.2); Carbon Dioxide 29 mmol/L (22-30); Chloride 102 mmol/L (98-107); Estimated Creatinine Clearance 51 ml/min; Glucose 81 mg/dl (70-99); Potassium 3.5 mmol/L (3.5-5.1); Sodium 135 mmol/L (135-145); Total Protein 5.6 g/dl (6.3-8.2); eGFR > 60.00
[2025-06-01 07:00] VITALS: BP 117/62
[2025-06-01] MEDS: NORVASC 2.5 MG PO (08:07)
[2025-06-01] MEDS: FEMARA 2.5 MG PO (08:08)
[2025-06-01] MEDS: ULTRAM 50 MG PO ×2 (08:08→17:35)
[2025-06-01] MEDS: VISBIOME 1 CAP PO (08:08)
--- NOTE | 2025-06-01 12:43 | W.PN.ID1 ---
Date of Service
Date of Service: June 01, 2025
Today's Communication
Continue ertapenem.
Assessment / Plan
Phlegmonous process around sigmoid colon and bladder
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
Abdominal pain
Nausea/diarrhea
Weight loss
Hx breast CA
HTN
Recommendations:
Continue ertapenem.
Monitor white count and temperature curve.
Follow abdominal discomfort level.
For tentative surgery Sunday 06/03.
����������������������������������������������������������
Chief Complaint
-: Other (Abdominal phlegmon)
Subjective / Review of Systems
Review of Systems: No Fever and No Chills
Vital Signs / Physical Exam
Vital Signs
Vital Signs
Temp Pulse Resp BP Pulse Ox
98.5 F 85 16 117/62 97
06/01/25 07:00 06/01/25 08:07 06/01/25 07:00 06/01/25 08:07 06/01/25 07:00
Physical Exam
Constitutional: No Acute Distress, Comfortable and Non-toxic
Eyes: Sclera Anicteric
Cardiovascular: S1/S2; Negative S3/S4
Pulmonary: Non Labored
Gastrointestinal: Soft, Tender (mild), Non Distended and Normal Bowel Sounds
Extremities: Negative Edema, Cyanosis or Erythema
Skin: Warm and Dry; Negative Rash or Jaundice
Neurological: Awake and Alert
Psychological: Calm
Objective Data
Lab Data
Lab Results
06/01/25 05:57
06/01/25 05:57
PT 14.4 Sec (11.4-14.6) 05/31/25 05:43
INR 1.07 05/31/25 05:43
APTT 34.7 Sec (23.4-35.0) 05/31/25 05:43
Estimated Creat Clear 51 ml/min 06/01/25 05:57
Total Bilirubin 0.5 mg/dl (0.2-1.3) 06/01/25 05:57
AST 15 U/L (14-36) 06/01/25 05:57
ALT < 10 U/L (0-35) 06/01/25 05:57
Alkaline Phosphatase 87 U/L (38-126) 06/01/25 05:57
Most recent labs reviewed.
Micro Results:
05/27/25 08:42 Salmonella/Shigella Culture - Final
Feces/Stool No Salmonella, Shigella, Aeromonas or Plesiomonas species
isolated.
Campylobacter Culture - Final
No Campylobacter species isolated.
Shiga Toxin Test - Final
No E. coli Shiga Toxin 1 or 2 detected.
05/26/25 16:48 Urine Culture - Final
Urine Escherichia coli
05/27/25 08:42 Cryptosporidium/Giardia - Final
Feces/Stool Negative for Cryptosporidium and/or Giardia Lamblia
antigens.
C. difficile GDH Antigen & Toxins - Final
Negative for toxigenic C.difficile
- Final
Negative for Norovirus GI and GII.
Imaging:
05/17/2025 CT abdomen/pelvis: Stable probable phlegmonous process about the sigmoid colon and bladder probably due to acute diverticulitis. Underlying colonic mass not excluded. Associated air in the bladder. Again, colovesical fistula and bladder
infection are possibilities. Oral contrast is not present in this region. Further evaluation is recommended. To evaluate the bladder, a cystogram under fluoroscopy probably would be the best test versus CT cystogram. To evaluate the bowel, a repeat
CT exam with oral contrast only and delayed imaging to assure contrast is in the distal colon or barium enema with nonionic contrast could be performed.
--- NOTE | 2025-06-01 13:32 | W.PN.HOSP.TC ---
Today's Communication/Plan
-
Continue IV antibiotics, regular diet
add on probiotics
OR tentatively on June 03
Assessment / Plan
Assessment / Plan
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
returned due to persistent and intermittent abdominal pain/cramp associated with nausea and nonbloody diarrhea, now for over 2 months. She also complained of weight loss, approximately 15 pounds over the past 2 months.
Of note, she was recently discharged with antibiotic Augmentin which she can continue. She is currently awaiting outpatient colonoscopy eval per her CRS surgeon Dr. Ha.
Patient had repeat CT AP ordered by Dr. Ha which did not reveal any significant changes from her CT scan 1 month prior.
Denies to other symptoms.
A/P:
# Persistent abdominal symptoms likely due to recent diagnosis of colonic mass and possible colo-vesical fistula
Recent repeat CT AP did not show any significant change
Stop augmentin, switch to ertapenem and continue; added on probiotics for diarrhea with abx
ID consulted by CRS
C. difficile negative, stool ova parasite negative, Norovirus negative
Follow stool culture
Continue low residue diet
CRS plan for robotic LAR with ureteral stents on June 03
# Mild hyponatremia
trend
# Hypokalemia
monitor and replete
# Noted urine culture from admission positive for E coli (pansensitive), likely asymptomatic bacteruria
Pt denies to urinary symptoms (no dysuria, no frequency, no urgency)
received augmentin, now on Ertapenem
# H/o Right breast invasive ductal carcinoma, stage III
# s/p lumpectomy, course of Adriamycin/Cytoxan and paclitaxel in May
# s/p radiation
Cont INFLATED BALL MOLDER letrozole therapy
# Essential HTN
Cont INFLATED BALL MOLDER Norvasc with holding parameter
DVT PPX: Lovenox SQ
DNR, confirmed with pt
Anticipated Discharge: > 48 hours
Subjective/Interval History
-
Date of Service: June 01, 2025
No acute events overnight
Objective Data
-
Labs:
Laboratory Results
06/01/25
05:57
WBC 7.9
Hgb 10.9 L
Hct 34.1 L
Plt Count 284
Sodium 135
Potassium 3.5
Chloride 102
Carbon Dioxide 29
BUN 8
Creatinine 0.4 L
Glucose 81
Calcium 8.8
Total Bilirubin 0.5
AST 15
ALT < 10
Alkaline Phosphatase 87
Vital Signs:
Vital Signs
Temp Pulse Resp BP Pulse Ox
98.5 F 85 16 117/62 97
06/01/25 07:00 06/01/25 08:07 06/01/25 07:00 06/01/25 08:07 06/01/25 07:00
I&O
05/31/25 06/01/25 06/02/25
06:59 06:59 06:59
Intake Total 1500 / 1500 860 / 860
Balance 1500 / 1500 860 / 860
Review of Systems
-
History Source: Patient
All other systems: Not reviewed unless documented
Physical Exam
-
General: Well Developed, No Apparent Distress, Comfortable and Conversant
HEENT: Normocephalic and Atraumatic; Negative Oxygen
Respiratory: Clear to Auscultation and Non Labored Respirations; Negative Accessory Resp Muscle Use
Cardiac: Regular Rhythm and S1/S2
GI: Soft, Nondistended and Tender (mild, diffuse); Negative Normal Bowel Sounds
Neuro: Awake, Alert and Oriented
Psych: Calm and Intact Judgement/Insight
Data Reviewed
-
CT Scan: Report Reviewed by me
Labs: Labs Reviewed by me
[2025-06-01] MEDS: TYLENOL 1000 MG PO (14:00)
[2025-06-01 15:04] VITALS: BP 103/59
[2025-06-01] MEDS: INVANZ 60 MG IV (15:51)
[2025-06-01] MEDS: FLUSH (NSS) 1 FLUSH IV (15:53)
[2025-06-01] MEDS: LOVENOX 40 MG SC (17:35)
[2025-06-01 23:23] VITALS: BP 155/86
[2025-06-02 06:47] LABS: Hematocrit 31.7 % (37.0-47.0); Hemoglobin 10.0 g/dL (12.0-16.0); Mean Corp Hgb Conc. 31.5 g/dL (33.0-37.0); Mean Corpuscular Volume 78.5 fL (81.0-99.0); Platelet Count 303 10^3/uL (130-400); Red Cell Dist. Width 15.9 % (11.5-14.5)
[2025-06-02 07:00] VITALS: BP 128/70
[2025-06-02 07:18] LABS: ALT (SGPT) < 10 U/L (0-35); AST (SGOT) 14 U/L (14-36); Albumin 2.6 g/dl (3.5-5.0); Alkaline Phosphatase 88 U/L (38-126); Blood Urea Nitrogen 8 mg/dl (7-17); Calcium 8.0 mg/dl (8.4-10.2); Carbon Dioxide 28 mmol/L (22-30); Chloride 101 mmol/L (98-107); Estimated Creatinine Clearance 51 ml/min; Glucose 90 mg/dl (70-99); Potassium 3.5 mmol/L (3.5-5.1); Sodium 133 mmol/L (135-145); Total Protein 5.0 g/dl (6.3-8.2); eGFR > 60.00
[2025-06-02] MEDS: NORVASC 2.5 MG PO (08:33)
[2025-06-02] MEDS: VISBIOME 1 CAP PO (08:33)
[2025-06-02] MEDS: FEMARA 2.5 MG PO (08:33)
[2025-06-02] MEDS: ULTRAM 50 MG PO ×2 (08:46→17:39)
[2025-06-02] MEDS: ZOFRAN 4 MG IV ×2 (08:47→14:54)
--- NOTE | 2025-06-02 10:36 | W.PN.CRS1 ---
Today's Communication / Plan
-
bowel prep today
clears, then NPO midnight
OR tomorrow
Assessment/Plan
-
84 yo female with phlegmonous process about the sigmoid colon most likely due to diverticular disease with an associated colovesical fistula. She
was in the process of scheduling a colonoscopy and surgery but due to persistent pain and diarrhea, she presented to the ED.
AFVSS
WBC remains normal
Stool studies with negative c-diff, other cx negative.
Plan:
- Continue IV antibiotics per ID
-OR scheduled for Friday, 06/[address] Ha
-stoma marking complete
-TEDS/SCDS ordered for DVT prophylaxis
-Lovenox held for OR tomorrow.
-Prep ordered to start at noon today
-IVFs later tonight
-Clear liquids today, NPO at midnight
-Pre-op medications ordered
-I/S q1 hour while awake
-Jennifer, daughter, updated via phone (Attempted to call Nadia - left a voicemail)
Subjective Data
Subjective Data
Date of Service: June 02, 2025
Patient states she feels 'fine'. She has no complaints. Denies nausea or vomiting.
Objective Data
-
Vital Signs
Temp Pulse Resp BP Pulse Ox
98.7 F 92 16 128/70 96
06/02/25 07:00 06/02/25 07:00 06/02/25 07:00 06/02/25 07:00 06/02/25 08:00
Intake & Output
06/01/25 06/02/25 06/03/25
06:59 06:59 06:59
Intake Total 860 / 860 1220 / 1220
Balance 860 / 860 1220 / 1220
Intake:
Oral fluids 860 / 860 1160 / 1160
IV piggybacks
Other:
Number of approximated SMALL 3
amounts of urine
Number of approximated MODERATE 4 3
amounts of urine
Number of unmeasured liquid
stools
Rectum 1
Lab Results
06/02/25 06:03
06/02/25 06:03
Physical Exam
-
General: No Acute Distress and AOx3
Abdomen: Soft, Non Distended and Tender (minimal - lower abdomen)
Skin: Warm
[2025-06-02] MEDS: NULYTELY SOLUTION 4 LITERS PO (11:49)
--- NOTE | 2025-06-02 13:39 | W.PN.HOSP.TC ---
Today's Communication/Plan
-
Cystoscopy with ureteral stents and ICG followed by a robotic low anterior resection and, repair of a colovesical fistula tomorrow
NPO at [place]
Assessment / Plan
Assessment / Plan
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
returned due to persistent and intermittent abdominal pain/cramp associated with nausea and nonbloody diarrhea, now for over 2 months. She also complained of weight loss, approximately 15 pounds over the past 2 months.
Of note, she was recently discharged with antibiotic Augmentin which she can continue. She is currently awaiting outpatient colonoscopy eval per her CRS surgeon Dr. Ha.
Patient had repeat CT AP ordered by Dr. Ha which did not reveal any significant changes from her CT scan 1 month prior.
Denies to other symptoms.
A/P:
# Persistent abdominal symptoms likely due to recent diagnosis of colonic mass and possible colo-vesical fistula
Recent repeat CT AP did not show any significant change
Stop augmentin, switch to ertapenem and continue; added on probiotics for diarrhea with abx
ID consulted by CRS
C. difficile negative, stool ova parasite negative, Norovirus negative
Follow stool culture
Continue low residue diet
Cystoscopy with ureteral stents and ICG followed by a robotic low anterior resection and, repair of a colovesical fistula tomorrow June 03; NPO at [place]
# Mild hyponatremia
trend
# Hypokalemia
monitor and replete
# Noted urine culture from admission positive for E coli (pansensitive), likely asymptomatic bacteruria
Pt denies to urinary symptoms (no dysuria, no frequency, no urgency)
received augmentin, now on Ertapenem
# H/o Right breast invasive ductal carcinoma, stage III
# s/p lumpectomy, course of Adriamycin/Cytoxan and paclitaxel in May
# s/p radiation
Cont COSTUMER letrozole therapy
# Essential HTN
Cont COSTUMER Norvasc with holding parameter
DVT PPX: Lovenox SQ
DNR, confirmed with pt
Anticipated Discharge: > 48 hours
Subjective/Interval History
-
Date of Service: June 02, 2025
no acute events
Objective Data
-
Labs:
Laboratory Results
06/02/25
06:03
WBC 7.7
Hgb 10.0 L
Hct 31.7 L
Plt Count 303
Sodium 133 L
Potassium 3.5
Chloride 101
Carbon Dioxide 28
BUN 8
Creatinine 0.5 L
Glucose 90
Calcium 8.0 L
Total Bilirubin 0.4
AST 14
ALT < 10
Alkaline Phosphatase 88
Vital Signs:
Vital Signs
Temp Pulse Resp BP Pulse Ox
98.7 F 92 16 128/70 96
06/02/25 07:00 06/02/25 07:00 06/02/25 07:00 06/02/25 07:00 06/02/25 08:00
I&O
06/01/25 06/02/25 06/03/25
06:59 06:59 06:59
Intake Total 860 / 860 1220 / 1220
Balance 860 / 860 1220 / 1220
Review of Systems
-
History Source: Patient
All other systems: Not reviewed unless documented
Physical Exam
-
General: Well Developed, No Apparent Distress, Comfortable and Conversant
HEENT: Normocephalic and Atraumatic; Negative Oxygen
Respiratory: Clear to Auscultation and Non Labored Respirations; Negative Accessory Resp Muscle Use
Cardiac: Regular Rhythm and S1/S2
GI: Soft, Nondistended and Tender (mild, diffuse); Negative Normal Bowel Sounds
Neuro: Awake, Alert and Oriented
Psych: Calm and Intact Judgement/Insight
Data Reviewed
-
CT Scan: Report Reviewed by me
Labs: Labs Reviewed by me
[2025-06-02] MEDS: FLAGYL 1000 MG PO ×2 (13:48→14:54)
[2025-06-02] MEDS: NEOMYCIN 1000 MG PO ×2 (13:48→14:54)
[2025-06-02 15:00] VITALS: BP 129/68
[2025-06-02] MEDS: INVANZ 60 MG IV (15:29)
--- NOTE | 2025-06-02 16:08 | W.PN.ID1 ---
Date of Service
Date of Service: June 02, 2025
Today's Communication
Continue antibiotics.
Assessment / Plan
Phlegmonous process around sigmoid colon and bladder
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
Abdominal pain
Nausea/diarrhea
Weight loss
Hx breast CA
HTN
Recommendations:
Continue ertapenem.
Monitor white count and temperature curve.
Follow abdominal discomfort level.
For tentative surgery Sunday 06/03. Await OR findings. Check intraoperative cultures if purulence seen.
����������������������������������������������������������
Chief Complaint
-: Other (Abdominal phlegmon)
Subjective / Review of Systems
Patient seen and examined. Reports nausea with drinking OR prep. Ongoing abdominal discomfort.
Review of Systems: No Fever and No Chills
Vital Signs / Physical Exam
Vital Signs
Vital Signs
Temp Pulse Resp BP Pulse Ox
97.8 F 85 16 129/68 96
06/02/25 15:00 06/02/25 15:00 06/02/25 15:00 06/02/25 15:00 06/02/25 15:00
Physical Exam
Constitutional: No Acute Distress, Comfortable and Non-toxic
Eyes: Sclera Anicteric
Cardiovascular: S1/S2; Negative S3/S4
Pulmonary: Non Labored
Gastrointestinal: Soft, Tender (mild), Non Distended and Normal Bowel Sounds
Extremities: Negative Edema, Cyanosis or Erythema
Skin: Warm and Dry; Negative Rash or Jaundice
Neurological: Awake and Alert
Psychological: Calm
Objective Data
Lab Data
Lab Results
06/02/25 06:03
06/02/25 06:03
PT 14.4 Sec (11.4-14.6) 05/31/25 05:43
INR 1.07 05/31/25 05:43
APTT 34.7 Sec (23.4-35.0) 05/31/25 05:43
Estimated Creat Clear 51 ml/min 06/02/25 06:03
Total Bilirubin 0.4 mg/dl (0.2-1.3) 06/02/25 06:03
AST 14 U/L (14-36) 06/02/25 06:03
ALT < 10 U/L (0-35) 06/02/25 06:03
Alkaline Phosphatase 88 U/L (38-126) 06/02/25 06:03
Most recent labs reviewed.
Micro Results:
05/27/25 08:42 Salmonella/Shigella Culture - Final
Feces/Stool No Salmonella, Shigella, Aeromonas or Plesiomonas species
isolated.
Campylobacter Culture - Final
No Campylobacter species isolated.
Shiga Toxin Test - Final
No E. coli Shiga Toxin 1 or 2 detected.
05/26/25 16:48 Urine Culture - Final
Urine Escherichia coli
05/27/25 08:42 Cryptosporidium/Giardia - Final
Feces/Stool Negative for Cryptosporidium and/or Giardia Lamblia
antigens.
C. difficile GDH Antigen & Toxins - Final
Negative for toxigenic C.difficile
- Final
Negative for Norovirus GI and GII.
Imaging:
05/17/2025 CT abdomen/pelvis: Stable probable phlegmonous process about the sigmoid colon and bladder probably due to acute diverticulitis. Underlying colonic mass not excluded. Associated air in the bladder. Again, colovesical fistula and bladder
infection are possibilities. Oral contrast is not present in this region. Further evaluation is recommended. To evaluate the bladder, a cystogram under fluoroscopy probably would be the best test versus CT cystogram. To evaluate the bowel, a repeat
CT exam with oral contrast only and delayed imaging to assure contrast is in the distal colon or barium enema with nonionic contrast could be performed.
[2025-06-02] MEDS: NORMOSOL-R/PLASMALYTE-A 1000 IV (20:18)
[2025-06-02] MEDS: TYLENOL 1000 MG PO (20:21)
[2025-06-02 23:00] VITALS: BP 130/70
[2025-06-03] VITALS (14 sets, daily range): BP systolic 74–130; BP diastolic 39–70
[2025-06-03] MEDS: FLAGYL 1000 MG PO (00:32)
[2025-06-03] MEDS: NEOMYCIN 1000 MG PO (00:33)
[2025-06-03] MEDS: ZOFRAN 4 MG IV (03:57)
[2025-06-03] MEDS: NEURONTIN 600 MG PO (06:27)
[2025-06-03] MEDS: TYLENOL 1000 MG PO (06:27)
[2025-06-03] MEDS: HEPARIN 5000 UNITS SC (06:28)
[2025-06-03 06:58] LABS: Hematocrit 34.0 % (37.0-47.0); Hemoglobin 11.0 g/dL (12.0-16.0); Mean Corp Hgb Conc. 32.4 g/dL (33.0-37.0); Mean Corpuscular Volume 78.9 fL (81.0-99.0); Nucleated Red Blood Cells % 0 %; Platelet Count 356 10^3/uL (130-400); Red Cell Dist. Width 15.7 % (11.5-14.5)
[2025-06-03 07:21] LABS: ALT (SGPT) < 10 U/L (0-35); AST (SGOT) 18 U/L (14-36); Albumin 3.0 g/dl (3.5-5.0); Alkaline Phosphatase 122 U/L (38-126); Blood Urea Nitrogen 9 mg/dl (7-17); Calcium 8.5 mg/dl (8.4-10.2); Carbon Dioxide 26 mmol/L (22-30); Chloride 100 mmol/L (98-107); Estimated Creatinine Clearance 51 ml/min; Glucose 104 mg/dl (70-99); Potassium 3.1 mmol/L (3.5-5.1); Sodium 135 mmol/L (135-145); Total Protein 5.6 g/dl (6.3-8.2); eGFR > 60.00
--- NOTE | 2025-06-03 07:40 | PTCARENOTE ---
Report given, pre procedure meds given as ordered and patient transferred to OR holding area @0725.
[2025-06-03] MEDS: FEMARA PO (09:05)
[2025-06-03] MEDS: VISBIOME PO (09:05)
[2025-06-03] MEDS: NORMOSOL-R/PLASMALYTE-A IV (09:05)
[2025-06-03] MEDS: NORVASC PO (09:05)
--- NOTE | 2025-06-03 12:37 | CM ---
CM continues to follow for discharge planning needs.
Pt is currently in the OR for cystoscopy with ureteral stents and ICG followed by a robotic low anterior resection and, repair of a colovesical fistula. May require an ostomy depending upon the operative findings, and a possibility of cancer.
Continues on abx; ertepenem
CM will follow for post-op needs
Discharge Disposition- home, follow for post-op needs
--- NOTE | 2025-06-03 14:21 | W.PN.HOSP.TC ---
Today's Communication/Plan
-
OR today
Assessment / Plan
Assessment / Plan
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
returned due to persistent and intermittent abdominal pain/cramp associated with nausea and nonbloody diarrhea, now for over 2 months. She also complained of weight loss, approximately 15 pounds over the past 2 months.
Of note, she was recently discharged with antibiotic Augmentin which she can continue. She is currently awaiting outpatient colonoscopy eval per her CRS surgeon Dr. Ha.
Patient had repeat CT AP ordered by Dr. Ha which did not reveal any significant changes from her CT scan 1 month prior.
Denies to other symptoms.
A/P:
# Persistent abdominal symptoms likely due to recent diagnosis of colonic mass and possible colo-vesical fistula
Recent repeat CT AP did not show any significant change
Stop augmentin, switch to ertapenem and continue; added on probiotics for diarrhea with abx
ID consulted by CRS
C. difficile negative, stool ova parasite negative, Norovirus negative
Follow stool culture
Continue low residue diet
Cystoscopy with ureteral stents and ICG followed by a robotic low anterior resection and, repair of a colovesical fistula today June 03; NPO at [place]
# Mild hyponatremia
trend
# Hypokalemia
monitor and replete
# Noted urine culture from admission positive for E coli (pansensitive), likely asymptomatic bacteruria
Pt denies to urinary symptoms (no dysuria, no frequency, no urgency)
received augmentin, now on Ertapenem
# H/o Right breast invasive ductal carcinoma, stage III
# s/p lumpectomy, course of Adriamycin/Cytoxan and paclitaxel in May
# s/p radiation
Cont PROFESSOR OF LITERATURE letrozole therapy
# Essential HTN
Cont PROFESSOR [employer]ATURE Norvasc with holding parameter
DVT PPX: Lovenox SQ
DNR, confirmed with pt
Anticipated Discharge: > 48 hours
Subjective/Interval History
-
Date of Service: June 03, 2025
no acute events
Objective Data
-
Labs:
Laboratory Results
06/03/25
06:15
WBC 8.9
Hgb 11.0 L
Hct 34.0 L
Plt Count 356
Sodium 135
Potassium 3.1 L
Chloride 100
Carbon Dioxide 26
BUN 9
Creatinine 0.5 L
Glucose 104 H
Calcium 8.5
Total Bilirubin 0.6
AST 18
ALT < 10
Alkaline Phosphatase 122
Vital Signs:
Vital Signs
Temp Pulse Resp BP Pulse Ox
97.5 F 70 18 130/70 98
06/02/25 23:00 06/02/25 23:00 06/02/25 23:00 06/02/25 23:00 06/02/25 23:00
I&O
06/02/25 06/03/25 06/04/25
06:59 06:59 06:59
Intake Total 1220 / 1220 1000 / 1000 400 / 400
Balance 1220 / 1220 1000 / 1000 400 / 400
Review of Systems
-
History Source: Patient
All other systems: Not reviewed unless documented
Physical Exam
-
General: Well Developed, No Apparent Distress, Comfortable and Conversant
HEENT: Normocephalic and Atraumatic; Negative Oxygen
Respiratory: Clear to Auscultation and Non Labored Respirations; Negative Accessory Resp Muscle Use
Cardiac: Regular Rhythm and S1/S2
GI: Soft, Nondistended and Tender (mild, diffuse); Negative Normal Bowel Sounds
Neuro: Awake, Alert and Oriented
Psych: Calm and Intact Judgement/Insight
Data Reviewed
-
CT Scan: Report Reviewed by me
Labs: Labs Reviewed by me
--- NOTE | 2025-06-03 15:46 | W.IMMPOSTOP ---
Surgical Immed Post Op Note
-
Primary Surgeon: Julian Ha MD
Assistants: CHASE Duval and MARNI Myers, Guido Moore MD, PGY IV
Urologist: Francis Morrison MD
Pre-op Diagnosis: Colovesical fistula
Post-op Diagnosis: Same
Procedure Performed: Cystoscopy with right ureteral stent and ICG, robotic low anterior resection with primary anastomosis, robotic
cystorrhaphy and flexible sigmoidoscopy
Anesthesia Type: GET
Specimen / Cultures: Sigmoid colon (suture is proximal)
Estimated Blood Loss: 100cc
Complications: None
Operative Findings: Firm distal sigmoid mass with fistula to the bladder
28mm EEA
Normal leak test
Chayo updated via telephone and I left a message for Nadia
[2025-06-03 17:35] LABS: Hematocrit 32.8 % (37.0-47.0); Hemoglobin 10.4 g/dL (12.0-16.0); Mean Corp Hgb Conc. 31.7 g/dL (33.0-37.0); Mean Corpuscular Volume 79.2 fL (81.0-99.0); Platelet Count 305 10^3/uL (130-400); Red Cell Dist. Width 15.7 % (11.5-14.5)
[2025-06-03 17:58] LABS: Blood Urea Nitrogen 9 mg/dl (7-17); Calcium 7.0 mg/dl (8.4-10.2); Carbon Dioxide 24 mmol/L (22-30); Chloride 99 mmol/L (98-107); Estimated Creatinine Clearance 51 ml/min; Glucose 165 mg/dl (70-99); Potassium 3.1 mmol/L (3.5-5.1); Sodium 134 mmol/L (135-145); eGFR > 60.00
[2025-06-03] MEDS: INVANZ 60 MG IV (17:59)
[2025-06-03] MEDS: NORMOSOL-R/PLASMALYTE-A 1000 IV (18:28)
--- NOTE | 2025-06-03 19:29 | PTCARENOTE ---
Pt arrived aprox 182 from PACU. Pt arrived with berumen inserted in OR, blue in color. 5 lap sites and 1 lower transverse site glued and CERTIFIED OPHTHALMIC ASSISTANT. Right YONI site with clean dry dressing. Pt with minimal pain but feeling some rectal pressure. Small amount
of stool noted with rectal excoriation. Pt on RA. BP stable but unable to obtain a temperature. TT sent to Dr Ha to see if doing a rectal temp was okay. Okayed to do rectal per Dr Ha. Rectal temp of 94.7. TT sent to Dr Ha and GARRISON
Svetlana Mueller.
[2025-06-03] MEDS: KCL 270 MEQ IV (20:05)
[2025-06-03] MEDS: TYLENOL 650 MG PO (20:08)
[2025-06-03] MEDS: TORADOL 15 MG IV (20:09)
--- NOTE | 2025-06-03 22:14 | VATNOTE ---
Attempted ML for PVA failed in left arm 2 different vessels. Another VAT RN able to establish a second PIV for incompatible medications. Primary RN at bedside.
[2025-06-04] MEDS: TYLENOL PO ×3 (00:15→17:44)
[2025-06-04] MEDS: TORADOL 15 MG IV ×2 (01:06→05:59)
[2025-06-04 03:50] VITALS: BP 122/60
[2025-06-04] MEDS: TYLENOL 650 MG PO ×4 (06:08→22:59)
[2025-06-04] MEDS: NORMOSOL-R/PLASMALYTE-A 1000 IV ×2 (06:08→17:43)
[2025-06-04 06:49] LABS: ALT (SGPT) < 10 U/L (0-35); AST (SGOT) 15 U/L (14-36); Albumin 2.0 g/dl (3.5-5.0); Alkaline Phosphatase 68 U/L (38-126); Blood Urea Nitrogen 11 mg/dl (7-17); Calcium 6.9 mg/dl (8.4-10.2); Carbon Dioxide 29 mmol/L (22-30); Chloride 104 mmol/L (98-107); Estimated Creatinine Clearance 38 ml/min; Glucose 97 mg/dl (70-99); Potassium 3.4 mmol/L (3.5-5.1); Sodium 136 mmol/L (135-145); Total Protein 3.9 g/dl (6.3-8.2); eGFR > 60.00
[2025-06-04 07:09] LABS: Hematocrit 25.3 % (37.0-47.0); Hemoglobin 8.1 g/dL (12.0-16.0); Mean Corp Hgb Conc. 32.0 g/dL (33.0-37.0); Mean Corpuscular Volume 79.3 fL (81.0-99.0); Platelet Count 306 10^3/uL (130-400); Red Cell Dist. Width 15.9 % (11.5-14.5)
[2025-06-04 07:20] VITALS: BP 106/58
[2025-06-04] MEDS: NORVASC PO (07:49)
[2025-06-04] MEDS: KCL 270 MEQ IV (09:20)
--- NOTE | 2025-06-04 09:37 | W.PN.ID1 ---
Date of Service
Date of Service: June 04, 2025
Today's Communication
Continue ertapenem (d8) for now.
At time of dc, transition to Augmentin 875mg po bid trough 06/10
Assessment / Plan
Phlegmonous process around sigmoid colon and bladder
Colovesicular fistula
Abdominal pain
Nausea/diarrhea
Weight loss
Hx breast CA
HTN
Recommendations:
06/03 s/p robotic low anterior resection with primary anastomosis, robotic cystorrhaphy and flexible sigmoidoscopy
Continue ertapenem (d8) for now.
At time of dc, transition to Augmentin 875mg po bid trough 06/10
����������������������������������������������������������
Chief Complaint
-: Other (Abdominal phlegmon)
Subjective / Review of Systems
No abd pain. Wants to get up and walk.
Vital Signs / Physical Exam
Vital Signs
Vital Signs
Temp Pulse Resp BP Pulse Ox
98.1 F 87 15 106/58 97
06/04/25 07:20 06/04/25 07:49 06/04/25 07:20 06/04/25 07:49 06/04/25 07:20
Physical Exam
Constitutional: No Acute Distress and Comfortable
Cardiovascular: Regular Rate and S1/S2
Pulmonary: Clear
Gastrointestinal: Soft, Non Tender and Non Distended
Extremities: Negative Edema
Neurological: AO x 3
Objective Data
Lab Data
Lab Results
06/04/25 05:34
PT 14.4 Sec (11.4-14.6) 05/31/25 05:43
INR 1.07 05/31/25 05:43
APTT 34.7 Sec (23.4-35.0) 05/31/25 05:43
Estimated Creat Clear 38 ml/min 06/04/25 05:34
Total Bilirubin 0.4 mg/dl (0.2-1.3) 06/04/25 05:34
AST 15 U/L (14-36) 06/04/25 05:34
ALT < 10 U/L (0-35) 06/04/25 05:34
Alkaline Phosphatase 68 U/L (38-126) 06/04/25 05:34
Most recent labs reviewed.
Micro Results:
05/27/25 08:42 Salmonella/Shigella Culture - Final
Feces/Stool No Salmonella, Shigella, Aeromonas or Plesiomonas species
isolated.
Campylobacter Culture - Final
No Campylobacter species isolated.
Shiga Toxin Test - Final
No E. coli Shiga Toxin 1 or 2 detected.
05/26/25 16:48 Urine Culture - Final
Urine Escherichia coli
05/27/25 08:42 Cryptosporidium/Giardia - Final
Feces/Stool Negative for Cryptosporidium and/or Giardia Lamblia
antigens.
C. difficile GDH Antigen & Toxins - Final
Negative for toxigenic C.difficile
- Final
Negative for Norovirus GI and GII.
Imaging:
05/17/2025 CT abdomen/pelvis: Stable probable phlegmonous process about the sigmoid colon and bladder probably due to acute diverticulitis. Underlying colonic mass not excluded. Associated air in the bladder. Again, colovesical fistula and bladder
infection are possibilities. Oral contrast is not present in this region. Further evaluation is recommended. To evaluate the bladder, a cystogram under fluoroscopy probably would be the best test versus CT cystogram. To evaluate the bowel, a repeat
CT exam with oral contrast only and delayed imaging to assure contrast is in the distal colon or barium enema with nonionic contrast could be performed.
--- NOTE | 2025-06-04 10:01 | W.PN.GS2 ---
Today's Communication / Plan
-
`
Assessment / Plan
-
Assessment: 84-year-old female POD #1 status post RAL low anterior resection with primary anastomosis, cystorrhaphy and flexible sigmoidoscopy. Cystoscopy with right ureteral stent and ICG for management of distal sigmoid mass with fistula to the
bladder.
AFVSS
Looks well this a.m.
Hemoglobin dropped 2 g to 8.1 likely reflective of acute blood loss anemia from surgery; YONI with typical serosanguineous fluid but not bart blood nor clot
Mild hypokalemia
Plan: Multimodal postoperative pain control options but in the setting of hemoglobin drop holding Toradol
Okay for up out of bed to chair and ambulate when tolerated.
Maintain Berumen catheter for bladder decompression in the setting of CV fistula repair
Repeat H&H
SCDs for VTE prophylaxis and Lovenox on hold with hemoglobin drop
ID following for antibiotic recommendations -remains on Invanz
Continue n.p.o. except sips of clears and ice chips for comfort pending GI recovery
Subjective Data
-
Date of Service: June 04, 2025
Patient seen and examined.
She states that she feels very well this a.m., the best she has felt in a long time.
Minimal postoperative incisional pain
No nausea
Offers no additional concerns or complaints.
Objective Data
-
Intake and Output
06/03/25 06/04/25 06/05/25
06:59 06:59 06:59
Intake Total 1000 / 1000 2370 / 2370
Output Total 1800 / 1800
Balance 1000 / 1000 570 / 570
Intake:
Oral fluids 1000 / 1000 100 / 100
IV fluids (Total) 2000 / 2000
normosol 600 / 600
IV piggybacks 270 / 270
Output:
Drain Output (Total) 255 / 255
Right Lower Tim-Salguero 255 / 255
Urine, Berumen 1545 / 1545
Other:
Number of approximated SMALL 1
amounts of urine
Number of approximated MODERATE 3 4
amounts of urine
Vital Signs
Temp Pulse Resp BP Pulse Ox
98.1 F 87 15 106/58 97
06/04/25 07:20 06/04/25 07:49 06/04/25 07:20 06/04/25 07:49 06/04/25 07:20
Lab Results
06/04/25 05:34
Calcium 6.9 mg/dl (8.4-10.2) L* 06/04/25 05:34
Magnesium 1.7 mg/dl (1.6-2.3) 05/27/25 05:38
Total Bilirubin 0.4 mg/dl (0.2-1.3) 06/04/25 05:34
AST 15 U/L (14-36) 06/04/25 05:34
ALT < 10 U/L (0-35) 06/04/25 05:34
Alkaline Phosphatase 68 U/L (38-126) 06/04/25 05:34
Total Protein 3.9 g/dl (6.3-8.2) L D 06/04/25 05:34
Albumin 2.0 g/dl (3.5-5.0) L 06/04/25 05:34
Physical Exam
-
NAD AAO x 3, resting comfortably in hospital bed
ABD: Soft, slightly distended, minimal incisional tenderness
Incision surgical dressings clean
YONI with serosanguineous fluid, not bart blood
Berumen in place
Patient has a berumen catheter: Yes
[2025-06-04 11:15] VITALS: BP 136/64
--- NOTE | 2025-06-04 12:02 | W.PN.HOSP.TC ---
Today's Communication/Plan
-
Out of bed to chair, ambulate when tolerating
Monitor hemoglobin
Hold chemical DVT prophylaxis
N.p.o. for now, monitor GI function
Continue antibiotics
Assessment / Plan
Assessment / Plan
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
returned due to persistent and intermittent abdominal pain/cramp associated with nausea and nonbloody diarrhea, now for over 2 months. She also complained of weight loss, approximately 15 pounds over the past 2 months.
Of note, she was recently discharged with antibiotic Augmentin which she can continue. She is currently awaiting outpatient colonoscopy eval per her CRS surgeon Dr. Ha.
Patient had repeat CT AP ordered by Dr. Ha which did not reveal any significant changes from her CT scan 1 month prior.
Denies to other symptoms.
A/P:
# Persistent abdominal symptoms likely due to recent diagnosis of colonic mass and possible colo-vesical fistula
POD #1 status post RAL low anterior resection with primary anastomosis, cystorrhaphy and flexible sigmoidoscopy. Cystoscopy with right ureteral stent and ICG for management of distal sigmoid mass with fistula to the bladder.
Stopped augmentin, switch to ertapenem and continue; added on probiotics for diarrhea with abx; At time of dc, transition to Augmentin 875mg po bid trough 06/10
ID consulted
NPO pending GI recovery
OOB to Chair and ambualte when tolerated
Maintain Miranda
H&H monitoring
SCDs with hgb drop
Pain control
#Acute blood loss anemia
Most likely perioperative
Monitor for any postoperative bleeding, no evidence of it at this time
Trend CBC
Hold chemical prophylaxis
Hold Toradol
# Mild hyponatremia
trend
# Hypokalemia
monitor and replete
# Noted urine culture from admission positive for E coli (pansensitive), likely asymptomatic bacteruria
Pt denies to urinary symptoms (no dysuria, no frequency, no urgency)
received augmentin, now on Ertapenem
# H/o Right breast invasive ductal carcinoma, stage III
# s/p lumpectomy, course of Adriamycin/Cytoxan and paclitaxel in May
# s/p radiation
Cont SEMICONDUCTOR WAFERS TESTER letrozole therapy
# Essential HTN
Cont SEMICONDUCTOR WAFERS TESTER Norvasc with holding parameter
DVT PPX: Lovenox SQ
DNR, confirmed with pt
Anticipated Discharge: 24 - 48 hours
Subjective/Interval History
-
Date of Service: June 04, 2025
No acute events overnight, had bowel movement this morning
Objective Data
-
Labs:
Laboratory Results
06/04/25 06/04/25
05:34 12:00
WBC 14.1 H
Hgb 8.1 L D Pending
Hct 25.3 L Pending
Plt Count 306
Sodium 136
Potassium 3.4 L
Chloride 104
Carbon Dioxide 29
BUN 11
Creatinine 0.8
Glucose 97
Calcium 6.9 L*
Total Bilirubin 0.4
AST 15
ALT < 10
Alkaline Phosphatase 68
Vital Signs:
Vital Signs
Temp Pulse Resp BP Pulse Ox
97.6 F 80 16 136/64 98
06/04/25 11:15 06/04/25 11:15 06/04/25 11:15 06/04/25 11:15 06/04/25 11:15
I&O
06/03/25 06/04/25 06/05/25
06:59 06:59 06:59
Intake Total 1000 / 1000 2370 / 2370
Output Total 1800 / 1800
Balance 1000 / 1000 570 / 570
Review of Systems
-
History Source: Patient
All other systems: Not reviewed unless documented
Physical Exam
-
General: Well Developed, No Apparent Distress, Comfortable and Conversant
HEENT: Normocephalic and Atraumatic; Negative Oxygen
Respiratory: Clear to Auscultation and Non Labored Respirations; Negative Accessory Resp Muscle Use
Cardiac: Regular Rhythm and S1/S2
GI: Soft, Nondistended and Other (Soft, slightly distended, minimal incisional tenderness Incision surgical dressings clean YONI with serosanguineous fluid, not bart blood); Negative Normal Bowel Sounds
Neuro: Awake, Alert and Oriented
Psych: Calm and Intact Judgement/Insight
Data Reviewed
-
CT Scan: Report Reviewed by me
Labs: Labs Reviewed by me
[2025-06-04] MEDS: FEMARA 2.5 MG PO (12:12)
[2025-06-04 15:10] VITALS: BP 137/84
[2025-06-04] MEDS: INVANZ 60 MG IV (15:24)
[2025-06-04] MEDS: NORVASC 2.5 MG PO (15:24)
[2025-06-04 18:19] LABS: Hematocrit 28.5 % (37.0-47.0); Hemoglobin 9.1 g/dL (12.0-16.0)
[2025-06-04 19:05] VITALS: BP 124/81
[2025-06-04 23:51] VITALS: BP 149/65
[2025-06-05] MEDS: TYLENOL PO ×2 (02:00→06:00)
[2025-06-05] MEDS: NORMOSOL-R/PLASMALYTE-A 1000 IV (04:22)
[2025-06-05 04:47] LABS: Hematocrit 22.9 % (37.0-47.0); Hemoglobin 7.3 g/dL (12.0-16.0); Mean Corp Hgb Conc. 31.9 g/dL (33.0-37.0); Mean Corpuscular Volume 78.4 fL (81.0-99.0); Platelet Count 325 10^3/uL (130-400); Red Cell Dist. Width 16.1 % (11.5-14.5)
[2025-06-05 05:07] LABS: ALT (SGPT) < 10 U/L (0-35); AST (SGOT) 16 U/L (14-36); Albumin 2.0 g/dl (3.5-5.0); Alkaline Phosphatase 70 U/L (38-126); Blood Urea Nitrogen 17 mg/dl (7-17); Calcium 7.2 mg/dl (8.4-10.2); Carbon Dioxide 26 mmol/L (22-30); Chloride 106 mmol/L (98-107); Estimated Creatinine Clearance 34 ml/min; Glucose 64 mg/dl (70-99); Potassium 3.6 mmol/L (3.5-5.1); Sodium 137 mmol/L (135-145); Total Protein 3.8 g/dl (6.3-8.2); eGFR > 60.00
[2025-06-05 07:20] VITALS: BP 105/54
[2025-06-05] MEDS: NORVASC PO (07:30)
[2025-06-05 08:49] VITALS: BP 127/71; BP 98/58; PULSE 88; O2SAT 99
--- NOTE | 2025-06-05 09:06 | W.PN.GS2 ---
Today's Communication / Plan
-
`
Assessment / Plan
-
Assessment: 84-year-old female POD # status post RAL low anterior resection with primary anastomosis, cystorrhaphy and flexible sigmoidoscopy. Cystoscopy with right ureteral stent and ICG for management of distal sigmoid mass with fistula to the
bladder.
AFVSS
Looks well this a.m.
Acute blood loss anemia from surgery -no signs of active bleeding, YONI light mostly serous than sanguinous fluid
Mild hypokalemia-resolved
Plan: Multimodal postoperative pain control options but in the setting of hemoglobin drop avoiding Toradol
Full liquid diet
Okay to stop IV fluids as tolerating liquid diet adequately
OOBTC and ambulate as tolerated
Maintain Berumen catheter for bladder decompression in the setting of CV fistula repair
Check CBC tomorrow a.m.
SCDs for VTE prophylaxis and Lovenox on hold with hemoglobin drop
ID following for antibiotic recommendations -remains on Invanz
Subjective Data
-
Date of Service: June 05, 2025
Patient seen and examined.
Postoperative incisional pain mild and well-controlled. No significant abdominal pain.
Tolerating clear liquids
Passing flatus and had loose bowel movements
Ambulating hallways and up out of bed to chair
Slight dizziness initially getting up out of bed but not since
Objective Data
-
Intake and Output
06/04/25 06/05/25 06/06/25
06:59 06:59 06:59
Intake Total 2370 / 2370 3520 / 3520
Output Total 1800 / 1800 505 / 505
Balance 570 / 570 3015 / 3015
Intake:
Oral fluids 100 / 100 500 / 500
IV fluids (Total) 2000 / 2000 2400 / 2400
normosol 600 / 600
IV piggybacks 270 / 270 620 / 620
Output:
Drain Output (Total) 255 / 255 105 / 105
Right [place] Tim-Salguero 255 / 255 105 / 105
Urine, Berumen 1545 / 1545 400 / 400
Other:
Number of approximated SMALL 3
amounts of urine
Number of approximated MODERATE 4
amounts of urine
Number of unmeasured liquid
stools
Rectum 5
Vital Signs
Temp Pulse Resp BP Pulse Ox
97.8 F 83 16 105/54 98
06/05/25 07:20 06/05/25 07:20 06/05/25 07:20 06/05/25 07:20 06/05/25 07:20
Lab Results
06/05/25 04:22
06/05/25 04:22
Calcium 7.2 mg/dl (8.4-10.2) L 06/05/25 04:22
Magnesium 1.7 mg/dl (1.6-2.3) 05/27/25 05:38
Total Bilirubin 0.4 mg/dl (0.2-1.3) 06/05/25 04:22
AST 16 U/L (14-36) 06/05/25 04:22
ALT < 10 U/L (0-35) 06/05/25 04:22
Alkaline Phosphatase 70 U/L (38-126) 06/05/25 04:22
Total Protein 3.8 g/dl (6.3-8.2) L 06/05/25 04:22
Albumin 2.0 g/dl (3.5-5.0) L 06/05/25 04:22
Physical Exam
-
NAD AAO x 3 sitting in chair at hospital bedside
ABD: Soft, nondistended, incision with glue dressings some localized ecchymosis but no hematomas, no open wounds, no drainage. Minimal incisional tenderness.
YONI with serosanguineous fluid
Berumen in place with green-tinged urine
Patient has a berumen catheter: Yes
[2025-06-05] MEDS: TYLENOL 650 MG PO ×4 (09:10→21:00)
[2025-06-05] MEDS: FEMARA 2.5 MG PO (09:10)
[2025-06-05] MEDS: NORMOSOL-R/PLASMALYTE-A IV (09:13)
--- NOTE | 2025-06-05 12:50 | W.PN.HOSP.TC ---
Today's Communication/Plan
-
FLD
Calcium repletion
Trend CBC, monitor for any evidence of bleed
Stop fluids
ECHO
Assessment / Plan
Assessment / Plan
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
returned due to persistent and intermittent abdominal pain/cramp associated with nausea and nonbloody diarrhea, now for over 2 months. She also complained of weight loss, approximately 15 pounds over the past 2 months.
Of note, she was recently discharged with antibiotic Augmentin which she can continue. She is currently awaiting outpatient colonoscopy eval per her CRS surgeon Dr. Ha.
Patient had repeat CT AP ordered by Dr. Ha which did not reveal any significant changes from her CT scan 1 month prior.
Denies to other symptoms.
A/P:
# Persistent abdominal symptoms likely due to recent diagnosis of colonic mass and possible colo-vesical fistula
POD #2 status post RAL low anterior resection with primary anastomosis, cystorrhaphy and flexible sigmoidoscopy. Cystoscopy with right ureteral stent and ICG for management of distal sigmoid mass with fistula to the bladder.
Stopped augmentin, switch to ertapenem and continue; added on probiotics for diarrhea with abx; At time of dc, transition to Augmentin 875mg po bid trough 06/10
ID consulted
Adv diet to FLD
OOB to Chair and ambualte when tolerated
Maintain Miranda
H&H monitoring
SCDs with hgb drop
Pain control
Stop Fluids
#Acute blood loss anemia
Most likely perioperative v post operative
Monitor for any postoperative bleeding
Monitor BMs
Trend CBC
Hold chemical prophylaxis
Hold Toradol
Surg aware
#LE Edema
most likely 2/2 to fluid resuscitation
ECHO
Stop IVF
Leg elevation
#Hypocalcemia
-monitor and replete
# Mild hyponatremia
trend
# Hypokalemia
monitor and replete
# Noted urine culture from admission positive for E coli (pansensitive), likely asymptomatic bacteruria
Pt denies to urinary symptoms (no dysuria, no frequency, no urgency)
received augmentin, now on Ertapenem
# H/o Right breast invasive ductal carcinoma, stage III
# s/p lumpectomy, course of Adriamycin/Cytoxan and paclitaxel in May
# s/p radiation
Cont FURNACE BUILDER letrozole therapy
# Essential HTN
Cont FURNACE BUILDER Norvasc with holding parameter
DVT PPX: Lovenox SQ
DNR, confirmed with pt
Total time spent on today's encounter was 51 minutes which included time spent in counseling the patient/family regarding diagnosis and treatment plan as listed above, goals of care, and symptom management. Case was discussed with nursing staff,
specialists, and care coordinators/case management. All labs and imaging personally reviewed by me. Remainder the time spent in detailed review of previous records, lab data, imaging, and other medical provider documentation.
Anticipated Discharge: Today
Subjective/Interval History
-
Date of Service: June 05, 2025
No acute vents, no abdominal pain. Had dark bowel movement this morning. Hemoglobin dropping, hemodynamically stable, mentating well.
Objective Data
-
Labs:
Laboratory Results
06/05/25
04:22
WBC 13.7 H
Hgb 7.3 L
Hct 22.9 L
Plt Count 325
Sodium 137
Potassium 3.6
Chloride 106
Carbon Dioxide 26
BUN 17
Creatinine 0.9
Glucose 64 L
Calcium 7.2 L
Total Bilirubin 0.4
AST 16
ALT < 10
Alkaline Phosphatase 70
Vital Signs:
Vital Signs
Temp Pulse Resp BP Pulse Ox
97.8 F 83 16 105/54 98
06/05/25 07:20 06/05/25 07:20 06/05/25 07:20 06/05/25 07:20 06/05/25 07:20
I&O
06/04/25 06/05/25 06/06/25
06:59 06:59 06:59
Intake Total 2370 / 2370 3520 / 3520
Output Total 1800 / 1800 505 / 505
Balance 570 / 570 3015 / 3015
Review of Systems
-
History Source: Patient
All other systems: Not reviewed unless documented
Physical Exam
-
General: Well Developed, No Apparent Distress, Comfortable and Conversant
HEENT: Normocephalic and Atraumatic; Negative Oxygen
Respiratory: Clear to Auscultation and Non Labored Respirations; Negative Accessory Resp Muscle Use
Cardiac: Regular Rhythm and S1/S2
GI: Soft, Nondistended and Other (Soft, slightly distended, minimal incisional tenderness Incision surgical dressings clean ); Negative Normal Bowel Sounds
Neuro: Awake, Alert and Oriented
Psych: Calm and Intact Judgement/Insight
Data Reviewed
-
CT Scan: Report Reviewed by me
Labs: Labs Reviewed by me
[2025-06-05] MEDS: CALCIUM GLUCONATE 100 IV (13:11)
[2025-06-05] MEDS: INVANZ 60 MG IV (15:19)
[2025-06-05 15:30] VITALS: BP 111/61
[2025-06-05 22:48] VITALS: BP 128/67
[2025-06-06] MEDS: TYLENOL 650 MG PO ×5 (01:08→20:55)
[2025-06-06] MEDS: ZOFRAN 4 MG IV ×2 (01:12→08:38)
[2025-06-06 06:29] LABS: Hematocrit 24.5 % (37.0-47.0); Hemoglobin 7.6 g/dL (12.0-16.0); Mean Corp Hgb Conc. 31.0 g/dL (33.0-37.0); Mean Corpuscular Volume 80.1 fL (81.0-99.0); Platelet Count 363 10^3/uL (130-400); Red Cell Dist. Width 16.3 % (11.5-14.5)
[2025-06-06 06:47] LABS: ALT (SGPT) < 10 U/L (0-35); AST (SGOT) 22 U/L (14-36); Albumin 2.2 g/dl (3.5-5.0); Alkaline Phosphatase 75 U/L (38-126); Blood Urea Nitrogen 16 mg/dl (7-17); Calcium 7.5 mg/dl (8.4-10.2); Carbon Dioxide 30 mmol/L (22-30); Chloride 105 mmol/L (98-107); Estimated Creatinine Clearance 44 ml/min; Glucose 81 mg/dl (70-99); Potassium 3.4 mmol/L (3.5-5.1); Sodium 136 mmol/L (135-145); Total Protein 4.3 g/dl (6.3-8.2); eGFR > 60.00
[2025-06-06 07:30] VITALS: BP 114/58
--- NOTE | 2025-06-06 08:24 | W.PN.HOSP.TC ---
Today's Communication/Plan
-
Advance diet to regular diet.
Monitor hemoglobin.
Replace K
Assessment / Plan
Assessment / Plan
Impression:
84-year-old female, PMH Right breast invasive ductal carcinoma stage III, HTN, recent Cryptosporidium infection, recent diagnosis of sigmoid mass with associated phlegmonous inflammatory changes and possible colovesical fistula in April 2025;
returned due to persistent and intermittent abdominal pain/cramp associated with nausea and nonbloody diarrhea, now for over 2 months. She also complained of weight loss, approximately 15 pounds over the past 2 months.
Seen by surgery/urology.
status post RAL low anterior resection with primary anastomosis, cystorrhaphy and flexible sigmoidoscopy. Cystoscopy with right ureteral stent and ICG for management of distal sigmoid mass with fistula to the bladder.
Symmetric show disease, started on ertapenem, and plan to discharge on oral Augmentin.
Patient developed acute blood loss anemia postoperatively.
Assessment/plan
# Persistent abdominal symptoms likely due to recent diagnosis of colonic mass and possible colo-vesical fistula
POD #2 status post RAL low anterior resection with primary anastomosis, cystorrhaphy and flexible sigmoidoscopy. Cystoscopy with right ureteral stent and ICG for management of distal sigmoid mass with fistula to the bladder.
Stopped augmentin, switch to ertapenem and continue; added on probiotics for diarrhea with abx; At time of dc, transition to Augmentin 875mg po bid trough 06/10
ID consulted
Adv diet to regular
OOB to Chair and ambualte when tolerated
Maintain Miranda
#Acute blood loss anemia
Most likely perioperative v post operative
Monitor for any postoperative bleeding
Monitor BMs
Trend CBC
Hold chemical prophylaxis
Hold Toradol
Surg aware
#LE Edema
most likely 2/2 to fluid resuscitation
ECHO pending
Stop IVF
Leg elevation
#Hypocalcemia
-monitor and replete
# Mild hyponatremia
trend
# Hypokalemia
monitor and replete
# Noted urine culture from admission positive for E coli (pansensitive), likely asymptomatic bacteruria
Pt denies to urinary symptoms (no dysuria, no frequency, no urgency)
received augmentin, now on Ertapenem
# H/o Right breast invasive ductal carcinoma, stage III
# s/p lumpectomy, course of Adriamycin/Cytoxan and paclitaxel in May
# s/p radiation
Cont CLINICAL PSYCHOLOGY TEACHER letrozole therapy
# Essential HTN
Cont CLINICAL PSYCHOLOGY TEACHER Norvasc with holding parameter
CODE STATUS:DNR
DVT prophylaxis: Lovenox on hold.
Diet: Regular diet
Total time spent on today's encounter was 55 minutes which included time spent in counseling the patient/family regarding diagnosis and treatment plan as listed above, goals of care, and symptom management. Case was discussed with nursing staff,
specialists, and care coordinators/case management. All labs and imaging personally reviewed by me. Remainder the time spent in detailed review of previous records, lab data, imaging, and other medical provider documentation.
Anticipated Discharge: 24 - 48 hours
Subjective/Interval History
-
Date of Service: June 06, 2025
Patient seen and examined at bedside, denies any chest pain or shortness of breath, improved abdominal pain, advance diet to regular.
Objective Data
-
Labs:
Laboratory Results
06/06/25
05:45
WBC 14.0 H
Hgb 7.6 L
Hct 24.5 L
Plt Count 363
Sodium 136
Potassium 3.4 L
Chloride 105
Carbon Dioxide 30
BUN 16
Creatinine 0.7
Glucose 81
Calcium 7.5 L
Total Bilirubin 0.4
AST 22
ALT < 10
Alkaline Phosphatase 75
Vital Signs:
Vital Signs
Temp Pulse Resp BP Pulse Ox
98.3 F 75 16 114/58 97
06/06/25 07:30 06/06/25 07:30 06/06/25 07:30 06/06/25 07:30 06/06/25 07:30
I&O
06/05/25 06/06/25 06/07/25
06:59 06:59 06:59
Intake Total 3520 / 3520 600 / 600
Output Total 505 / 505 370 / 370
Balance 3015 / 3015 230 / 230 -15 / -
Physical Exam
-
General: Well Developed, Well Nourished, No Apparent Distress and Comfortable
HEENT: Normocephalic, Atraumatic, Moist Mucous Membranes, No Ptosis, PERRLA and Nose Appears Normal
Respiratory: Clear to Auscultation and Non Labored Respirations
Cardiac: Regular Rhythm and S1/S2
Breast: Deferred by me
GI: Soft, Nondistended, Normal Bowel Sounds and Tender (Slightly tender, surgical site clean)
Genito-urinary: No Costovertebral Tender
Musculoskeletal: No Clubbing, No Cyanosis and No Edema
Skin: Warm
Neuro: Awake, Alert, Oriented, AO x 3 and No Motor Deficits
Psych: Calm
Data Reviewed
-
Diagnostic Radiology: Image personally visualized and interpreted and Report Reviewed by me
CT Scan: Image personally visualized and interpreted and Report Reviewed by me
Ultrasound: Image personally visualized and interpreted and Report Reviewed by me
MRI: Image personally visualized and interpreted and Report Reviewed by me
Medical Tests (Nuc Med, Echo etc): Image personally visualized and interpreted and Report Reviewed by me
Labs: Labs Reviewed by me
Old Records: Reviewed
[2025-06-06] MEDS: FEMARA 2.5 MG PO (08:37)
--- NOTE | 2025-06-06 10:13 | W.PN.CRS1 ---
Today's Communication / Plan
-
Advance to regular diet
Trend labs
Maintain Miranda
Holding Toradol and Lovenox
Assessment/Plan
-
Assessment: 84-year-old female POD #3 status post RAL low anterior resection with primary anastomosis, cystorrhaphy and flexible sigmoidoscopy. Cystoscopy with right ureteral stent and ICG for management of distal sigmoid mass with fistula to the
bladder.
AFVSS
Hgb 7.6 (7.3), WBC 14.0 (13.7)
Plan:
-Advance diet to regular
- Pain control: Tylenol, Ultram, and Dilaudid as needed
- Maintain Miranda per urology in the setting of a bladder repair
- Appreciate ID consult: Will maintain IV Invanz through 06/10 and transition to p.o.
- Out of bed as tolerated with physical therapy
- Continue to trend labs
- Maintain YONI drain until discharge
- Potassium 3.4 this morning which is hypokalemia, repleted with 40 meq IV potassium
-Dispo: Likely home
- OR pathology pending
- Holding Lovenox due to anemia, teds and SCDs in place for DVT prophylaxis
Subjective Data
Procedure
06/03- low anterior resection with primary anastomosis, cystorrhaphy and flexible sigmoidoscopy
Subjective Data
Date of Service: June 06, 2025
Patient states she is sore but doing well. She is having flatus and loose stools. They are starting to slow down a bit. She is very hungry for regular food. She is nauseous but states it is because she does not like the clear liquids.
Objective Data
-
Vital Signs
Temp Pulse Resp BP Pulse Ox
98.3 F 75 16 114/58 97
06/06/25 07:30 06/06/25 07:30 06/06/25 07:30 06/06/25 07:30 06/06/25 07:30
Intake & Output
06/05/25 06/06/25 06/07/25
06:59 06:59 06:59
Intake Total 3520 / 3520 600 / 600
Output Total 505 / 505 370 / 370
Balance 3015 / 3015 230 / 230 -15 / -15
Intake:
Oral fluids 500 / 500 600 / 600
IV fluids (Total) 2400 / 2400
IV piggybacks 620 / 620
Output:
Drain Output (Total) 105 / 105 120 / 120 15
Right Lower Tim-Salguero 105 / 105 120 / 120
Urine, Miranda 400 / 400 250 / 250
Other:
Number of approximated SMALL 3
amounts of urine
Number of unmeasured liquid
stools
Rectum 5
Lab Results
06/06/25 05:45
06/06/25 05:45
Physical Exam
-
General: No Acute Distress and AOx3
Abdomen: Soft, Non Distended, Non Tender and Other (YONI drain serosanguineous)
Incision: Clear, Dry, Intact
[2025-06-06] MEDS: KCL 20 MEQ PO (13:37)
[2025-06-06 14:55] VITALS: BP 121/64
--- NOTE | 2025-06-06 15:44 | CM ---
POD #3, IV/Ertapenem, berumen, YONI drain, Regular diet. Discharge POC: Therapy notes HH vs no needs. Will follow additional evals.
[2025-06-06] MEDS: INVANZ 60 MG IV (16:41)
--- NOTE | 2025-06-06 16:45 | W.PN.ID1 ---
Date of Service
Date of Service: June 06, 2025
Today's Communication
Transition ertapenem to Augmentin through 06/10.
Assessment / Plan
Phlegmonous process around sigmoid colon and bladder
Colovesicular fistula
s/p Abdominal pain
s/p Nausea/diarrhea
Weight loss
Hx breast CA
HTN
Recommendations:
06/03 s/p robotic low anterior resection with primary anastomosis, robotic cystorrhaphy and flexible sigmoidoscopy
Transition ertapenem (d10) to Augmentin 875mg po bid trough 06/10
����������������������������������������������������������
Chief Complaint
-: Other (Abdominal phlegmon)
Subjective / Review of Systems
No significant pain. Passing gas.
Vital Signs / Physical Exam
Vital Signs
Vital Signs
Temp Pulse Resp BP Pulse Ox
98.6 F 85 18 121/64 98
06/06/25 14:55 06/06/25 14:55 06/06/25 14:55 06/06/25 14:55 06/06/25 14:55
Physical Exam
Constitutional: No Acute Distress, Comfortable and Cachetic
Cardiovascular: Regular Rate and S1/S2
Pulmonary: Clear
Gastrointestinal: Soft, Non Tender and Non Distended
Extremities: Negative Edema
Neurological: AO x 3
Objective Data
Lab Data
Lab Results
06/06/25 05:45
06/06/25 05:45
PT 14.4 Sec (11.4-14.6) 05/31/25 05:43
INR 1.07 05/31/25 05:43
APTT 34.7 Sec (23.4-35.0) 05/31/25 05:43
Estimated Creat Clear 44 ml/min 06/06/25 05:45
Total Bilirubin 0.4 mg/dl (0.2-1.3) 06/06/25 05:45
AST 22 U/L (14-36) 06/06/25 05:45
ALT < 10 U/L (0-35) 06/06/25 05:45
Alkaline Phosphatase 75 U/L (38-126) 06/06/25 05:45
Most recent labs reviewed.
Micro Results:
05/27/25 08:42 Salmonella/Shigella Culture - Final
Feces/Stool No Salmonella, Shigella, Aeromonas or Plesiomonas species
isolated.
Campylobacter Culture - Final
No Campylobacter species isolated.
Shiga Toxin Test - Final
No E. coli Shiga Toxin 1 or 2 detected.
05/26/25 16:48 Urine Culture - Final
Urine Escherichia coli
05/27/25 08:42 Cryptosporidium/Giardia - Final
Feces/Stool Negative for Cryptosporidium and/or Giardia Lamblia
antigens.
C. difficile GDH Antigen & Toxins - Final
Negative for toxigenic C.difficile
- Final
Negative for Norovirus GI and GII.
Imaging:
05/17/2025 CT abdomen/pelvis: Stable probable phlegmonous process about the sigmoid colon and bladder probably due to acute diverticulitis. Underlying colonic mass not excluded. Associated air in the bladder. Again, colovesical fistula and bladder
infection are possibilities. Oral contrast is not present in this region. Further evaluation is recommended. To evaluate the bladder, a cystogram under fluoroscopy probably would be the best test versus CT cystogram. To evaluate the bowel, a repeat
CT exam with oral contrast only and delayed imaging to assure contrast is in the distal colon or barium enema with nonionic contrast could be performed.
[2025-06-06] MEDS: TYLENOL PO (18:38)
[2025-06-06 23:05] VITALS: BP 121/65
[2025-06-07] MEDS: ULTRAM 50 MG PO ×2 (01:47→23:58)
[2025-06-07] MEDS: TYLENOL PO (03:06)
[2025-06-07] MEDS: TYLENOL 650 MG PO ×5 (05:17→21:01)
[2025-06-07] MEDS: FLUSH (NSS) 2 FLUSH IV (05:21)
[2025-06-07] MEDS: ZOFRAN 4 MG IV (05:21)
[2025-06-07 06:48] LABS: Hematocrit 23.6 % (37.0-47.0); Hemoglobin 7.2 g/dL (12.0-16.0); Mean Corp Hgb Conc. 30.5 g/dL (33.0-37.0); Mean Corpuscular Volume 81.1 fL (81.0-99.0); Platelet Count 363 10^3/uL (130-400); Red Cell Dist. Width 16.3 % (11.5-14.5)
[2025-06-07 07:15] VITALS: BP 123/65
[2025-06-07 07:16] LABS: Blood Urea Nitrogen 13 mg/dl (7-17); Calcium 7.6 mg/dl (8.4-10.2); Carbon Dioxide 27 mmol/L (22-30); Chloride 107 mmol/L (98-107); Estimated Creatinine Clearance 51 ml/min; Glucose 94 mg/dl (70-99); Magnesium 2.0 mg/dl (1.6-2.3); Potassium 3.6 mmol/L (3.5-5.1); Sodium 137 mmol/L (135-145); eGFR > 60.00
[2025-06-07] MEDS: AUGMENTIN 875 MG/125 MG 1 TABLET PO ×2 (08:08→19:36)
[2025-06-07] MEDS: FEMARA 2.5 MG PO (08:08)
--- NOTE | 2025-06-07 09:37 | W.PN.CRS1 ---
Today's Communication / Plan
-
Maintain diet
Continue Miranda
YONI removed before discharge
Monitor hemoglobin
Antibiotics per ID
Assessment/Plan
-
Assessment: 84-year-old female POD #3 status post RAL low anterior resection with primary anastomosis, cystorrhaphy and flexible sigmoidoscopy. Cystoscopy with right ureteral stent and ICG for management of distal sigmoid mass with fistula to the
bladder.
AFVSS
Hgb 7.2 (7.6), WBC 8.7 (14.0)
Plan:
-Continue regular diet
- Pain control: Tylenol, Ultram, and Dilaudid as needed
- Maintain Miranda per urology in the setting of a bladder repair-at least 5 days. Will touch base with them tomorrow.
- Appreciate ID consult: Antibiotics through 06/10
- Out of bed as tolerated with physical therapy
- Continue to trend labs
- Maintain YONI drain until discharge
-Dispo: Likely home
- OR pathology pending
- Holding Lovenox due to anemia, teds and SCDs in place for DVT prophylaxis
Subjective Data
Procedure
06/03- low anterior resection with primary anastomosis, cystorrhaphy and flexible sigmoidoscopy
Subjective Data
Date of Service: June 07, 2025
Patient states she is tolerating a diet. She overall feels well. Denies nausea or vomiting. She has flatus. She had a liquid brown stool yesterday.
Objective Data
-
Vital Signs
Temp Pulse Resp BP Pulse Ox
98.4 F 72 18 123/65 96
06/07/25 07:15 06/07/25 07:15 06/07/25 07:15 06/07/25 07:15 06/07/25 07:15
Intake & Output
06/06/25 06/07/25 06/08/25
06:59 06:59 06:59
Intake Total 600 / 600 1040 / 1040
Output Total 370 / 370 500 / 500
Balance 230 / 230 540 / 540
Intake:
Oral fluids 600 / 600 1040 / 1040
Output:
Drain Output (Total) 120 / 120 75 / 75
Right Lower Tim-Salguero 120 / 120 75 / 75
Urine, Miranda 250 / 250 300 / 300
Urine, Voided 125 / 125
Other:
Number of unmeasured liquid
stools
Rectum 2
Lab Results
06/07/25 06:00
Physical Exam
-
General: No Acute Distress
Abdomen: Soft, Non Distended and Non Tender
Skin: Warm and Dry
Incision: Clear, Dry, Intact
--- NOTE | 2025-06-07 11:16 | W.PN.HOSP.TC ---
Today's Communication/Plan
-
Repeat hemoglobin and transfuse if needed.
Discharge home tomorrow.
Assessment / Plan
Assessment / Plan
Impression:
84-year-old female, PMH Right breast invasive ductal carcinoma stage III, HTN, recent Cryptosporidium infection, recent diagnosis of sigmoid mass with associated phlegmonous inflammatory changes and possible colovesical fistula in April 2025;
returned due to persistent and intermittent abdominal pain/cramp associated with nausea and nonbloody diarrhea, now for over 2 months. She also complained of weight loss, approximately 15 pounds over the past 2 months.
Seen by surgery/urology.
status post RAL low anterior resection with primary anastomosis, cystorrhaphy and flexible sigmoidoscopy. Cystoscopy with right ureteral stent and ICG for management of distal sigmoid mass with fistula to the bladder.
Symmetric show disease, started on ertapenem, and plan to discharge on oral Augmentin.
Patient developed acute blood loss anemia postoperatively.
Assessment/plan
# Persistent abdominal symptoms likely due to recent diagnosis of colonic mass and possible colo-vesical fistula
POD #2 status post RAL low anterior resection with primary anastomosis, cystorrhaphy and flexible sigmoidoscopy. Cystoscopy with right ureteral stent and ICG for management of distal sigmoid mass with fistula to the bladder.
Stopped augmentin, switch to ertapenem and continue; added on probiotics for diarrhea with abx; At time of dc, transition to Augmentin 875mg po bid trough 06/10
ID consulted
Adv diet to regular (patient tolerating)
OOB to Chair and ambualte when tolerated
Maintain Miranda
#Acute blood loss anemia
Most likely perioperative v post operative
Monitor for any postoperative bleeding
Monitor BMs
Trend CBC
Hold chemical prophylaxis
Hold Toradol
Surg aware.
Transfuse if needed
#LE Edema
most likely 2/2 to fluid resuscitation
ECHO pending
Stop IVF
Leg elevation
#Hypocalcemia
-monitor and replete
# Mild hyponatremia
trend
# Hypokalemia
monitor and replete
# Noted urine culture from admission positive for E coli (pansensitive), likely asymptomatic bacteruria
Pt denies to urinary symptoms (no dysuria, no frequency, no urgency)
received augmentin, now on Ertapenem
# H/o Right breast invasive ductal carcinoma, stage III
# s/p lumpectomy, course of Adriamycin/Cytoxan and paclitaxel in May
# s/p radiation
Cont LINING C[employer]ER letrozole therapy
# Essential HTN
Cont LINING C[employer] Norvasc with holding parameter
CODE STATUS:DNR
DVT prophylaxis: Lovenox on hold.
Diet: Regular diet
Disposition: Repeat hemoglobin and transfuse if needed.
Total time spent on today's encounter was 55 minutes which included time spent in counseling the patient/family regarding diagnosis and treatment plan as listed above, goals of care, and symptom management. Case was discussed with nursing staff,
specialists, and care coordinators/case management. All labs and imaging personally reviewed by me. Remainder the time spent in detailed review of previous records, lab data, imaging, and other medical provider documentation.
Anticipated Discharge: Within 24 hours
Subjective/Interval History
-
Date of Service: June 07, 2025
Patient seen and examined at bedside, denies any chest pain or shortness of breath, no abdominal pain, no nausea, no vomiting, no diarrhea or constipation.
Tolerates diet.
Objective Data
-
Labs:
Laboratory Results
06/07/25 06/07/25
06:00 13:00
WBC 8.4
Hgb 7.2 L Pending
Hct 23.6 L Pending
Plt Count 363
Sodium 137
Potassium 3.6
Chloride 107
Carbon Dioxide 27
BUN 13
Creatinine 0.6
Glucose 94
Calcium 7.6 L
Vital Signs:
Vital Signs
Temp Pulse Resp BP Pulse Ox
98.4 F 72 18 123/65 96
06/07/25 07:15 06/07/25 07:15 06/07/25 07:15 06/07/25 07:15 06/07/25 07:15
I&O
06/06/25 06/07/25 06/08/25
06:59 06:59 06:59
Intake Total 600 / 600 1040 / 1040 240 / 240
Output Total 370 / 370 500 / 500 200 / 200
Balance 230 / 230 540 / 540 40 / 40
Physical Exam
-
General: Well Developed, Well Nourished, No Apparent Distress and Comfortable
HEENT: Normocephalic, Atraumatic, Moist Mucous Membranes, No Ptosis, PERRLA and Nose Appears Normal
Respiratory: Clear to Auscultation and Non Labored Respirations
Cardiac: Regular Rhythm and S1/S2
Breast: Deferred by me
GI: Soft, Nondistended, Normal Bowel Sounds and Tender (Slightly tender, surgical site clean)
Genito-urinary: No Costovertebral Tender
Musculoskeletal: No Clubbing, No Cyanosis and No Edema
Skin: Warm
Neuro: Awake, Alert, Oriented, AO x 3 and No Motor Deficits
Psych: Calm
Data Reviewed
-
Diagnostic Radiology: Image personally visualized and interpreted and Report Reviewed by me
CT Scan: Image personally visualized and interpreted and Report Reviewed by me
Ultrasound: Image personally visualized and interpreted and Report Reviewed by me
MRI: Image personally visualized and interpreted and Report Reviewed by me
Medical Tests (Nuc Med, Echo etc): Image personally visualized and interpreted and Report Reviewed by me
Labs: Labs Reviewed by me
Old Records: Reviewed
[2025-06-07 14:34] LABS: Hematocrit 25.1 % (37.0-47.0); Hemoglobin 7.8 g/dL (12.0-16.0)
--- NOTE | 2025-06-07 14:59 | CM ---
POD #4: PREOPERATIVE DIAGNOSIS: Enterovesical fistula. On 06/03/25- Repair of bladder component of colovesical fistula, Cystoscopy with placement of right open-ended ureteral catheter, Failed attempt to place left open-ended ureteral catheter,
Instillation of ICG.
Miranda, YONI drain, PO Augmentin. Discharge POC: Therapy rec for HH vs. no needs. Awaiting further evals to determine plan.
[2025-06-07 15:15] VITALS: BP 119/62
[2025-06-07 23:15] VITALS: BP 128/69
[2025-06-08] MEDS: TYLENOL PO ×2 (01:44→05:04)
[2025-06-08] MEDS: ZOFRAN 4 MG IV (06:10)
[2025-06-08 07:20] VITALS: BP 137/75
[2025-06-08 07:40] LABS: Hematocrit 23.7 % (37.0-47.0); Hemoglobin 7.3 g/dL (12.0-16.0); Mean Corp Hgb Conc. 30.8 g/dL (33.0-37.0); Mean Corpuscular Volume 80.9 fL (81.0-99.0); Platelet Count 368 10^3/uL (130-400); Red Cell Dist. Width 16.3 % (11.5-14.5)
[2025-06-08] MEDS: FEMARA 2.5 MG PO (08:12)
[2025-06-08] MEDS: AUGMENTIN 875 MG/125 MG 1 TABLET PO (08:12)
[2025-06-08 09:38] VITALS: BP 160/86; PULSE 105; O2SAT 97
[2025-06-08] MEDS: TYLENOL 650 MG PO (10:00)
--- NOTE | 2025-06-08 10:41 | CM ---
Met with patient at bedside
IMM benefit explained; form signed @ 1030
Patient reported that her daughter will provide transport home
Plan: Discharge to home today with [facility]
[2025-06-08 10:56] LABS: Blood Urea Nitrogen 11 mg/dl (7-17); Calcium 8.5 mg/dl (8.4-10.2); Carbon Dioxide 29 mmol/L (22-30); Chloride 104 mmol/L (98-107); Estimated Creatinine Clearance 51 ml/min; Glucose 106 mg/dl (70-99); Magnesium 1.8 mg/dl (1.6-2.3); Potassium 3.5 mmol/L (3.5-5.1); Sodium 137 mmol/L (135-145); eGFR > 60.00
--- NOTE | 2025-06-08 10:57 | VNURNOTE ---
Home Health Liaison met with patient at bedside to discuss [facility] nurse/therapy, visits, schedule and homebound status. Patient is agreeable and understands that visits at home will be 2-3 x per week to assess and teach medical management. Patient
is aware that [facility] will contact them for start of care in 1-2 days after discharge from .
[facility] referral completed in [facility] Port.
--- NOTE | 2025-06-08 11:24 | W.PN.HOSP.TC ---
Today's Communication/Plan
-
Discharge home with home health nurse.
Will be discharged with Miranda
Assessment / Plan
Assessment / Plan
Impression:
84-year-old female, PMH Right breast invasive ductal carcinoma stage III, HTN, recent Cryptosporidium infection, recent diagnosis of sigmoid mass with associated phlegmonous inflammatory changes and possible colovesical fistula in April 2025;
returned due to persistent and intermittent abdominal pain/cramp associated with nausea and nonbloody diarrhea, now for over 2 months. She also complained of weight loss, approximately 15 pounds over the past 2 months.
Seen by surgery/urology.
status post RAL low anterior resection with primary anastomosis, cystorrhaphy and flexible sigmoidoscopy. Cystoscopy with right ureteral stent and ICG for management of distal sigmoid mass with fistula to the bladder.
Symmetric show disease, started on ertapenem, and plan to discharge on oral Augmentin.
Patient developed acute blood loss anemia postoperatively.
Patient discharged home with Miranda and follow-up with urology as op.
Assessment/plan
# Persistent abdominal symptoms likely due to recent diagnosis of colonic mass and possible colo-vesical fistula
status post RAL low anterior resection with primary anastomosis, cystorrhaphy and flexible sigmoidoscopy. Cystoscopy with right ureteral stent and ICG for management of distal sigmoid mass with fistula to the bladder.
Stopped augmentin, switch to ertapenem and continue; added on probiotics for diarrhea with abx; At time of dc, transition to Augmentin 875mg po bid trough 06/10
ID consulted
Adv diet to regular (patient tolerating)
OOB to Chair and ambualte when tolerated
Maintain [id number] with urology as outpatient.
Will be discharged to complete Augmentin until June,
#Acute blood loss anemia
Most likely perioperative v post operative
Monitor for any postoperative bleeding
Monitor BMs
Trend CBC
Hold chemical prophylaxis
Hold Toradol
Surg aware.
Transfuse if needed
Follow with CBC after 1 week after discharge
#LE Edema
most likely 2/2 to fluid resuscitation
ECHO shows:
Normal biventricular size and systolic function without regional wall motion
abnormality.
LV ejection fraction is 57% by volumetric assessment.
Mild to moderate aortic regurgitation.
Estimated pulmonary artery pressure of 28 mmHg. Assuming a right atrial
pressure of 3 mmHg.
Compared to prior from December 01, 2019, no significant change.
No shortness of breath
#Hypocalcemia
-monitor and replete
# Mild hyponatremia
trend
# Hypokalemia
monitor and replete
# Noted urine culture from admission positive for E coli (pansensitive), likely asymptomatic bacteruria
Pt denies to urinary symptoms (no dysuria, no frequency, no urgency)
received augmentin, now on Ertapenem
# H/o Right breast invasive ductal carcinoma, stage III
# s/p lumpectomy, course of Adriamycin/Cytoxan and paclitaxel in May
# s/p radiation
Cont ELECTRIC [employer] letrozole therapy
# Essential HTN
Cont E[employer] Norvasc with holding parameter
CODE STATUS:DNR
DVT prophylaxis: Lovenox on hold.
Diet: Regular diet
Disposition: Discharge home today
Total time spent on today's encounter was 65 minutes which included time spent in counseling the patient/family regarding diagnosis and treatment plan as listed above, goals of care, and symptom management. Case was discussed with nursing staff,
specialists, and care coordinators/case management. All labs and imaging personally reviewed by me. Remainder the time spent in detailed review of previous records, lab data, imaging, and other medical provider documentation.
Anticipated Discharge: Today
Subjective/Interval History
-
Date of Service: June 08, 2025
Patient seen and examined at bedside, denies any chest pain or shortness of breath, no abdominal pain, no nausea, no vomiting, no diarrhea or constipation.
Objective Data
-
Labs:
Laboratory Results
06/08/25 06/08/25
07:07 09:58
WBC 6.5
Hgb 7.3 L
Hct 23.7 L
Plt Count 368
Sodium Cancelled 137
Potassium Cancelled 3.5
Chloride Cancelled 104
Carbon Dioxide Cancelled 29
BUN Cancelled 11
Creatinine Cancelled 0.5 L
Glucose Cancelled 106 H
Calcium Cancelled 8.5
Vital Signs:
Vital Signs
Temp Pulse Resp BP Pulse Ox
97.4 F 92 16 137/75 97
06/08/25 07:20 06/08/25 07:20 06/08/25 07:20 06/08/25 07:20 06/08/25 07:20
I&O
06/07/25 06/08/25 06/09/25
06:59 06:59 06:59
Intake Total 1040 / 1040 480 / 480
Output Total 500 / 500 485 / 485
Balance 540 / 540 -5 / -5
Physical Exam
-
General: Well Developed, Well Nourished, No Apparent Distress and Comfortable
HEENT: Normocephalic, Atraumatic, Moist Mucous Membranes, No Ptosis, PERRLA and Nose Appears Normal
Respiratory: Clear to Auscultation and Non Labored Respirations
Cardiac: Regular Rhythm and S1/S2
Breast: Deferred by me
GI: Soft, Nondistended, Normal Bowel Sounds and Tender (Slightly tender, surgical site clean)
Genito-urinary: No Costovertebral Tender
Musculoskeletal: No Clubbing, No Cyanosis and No Edema
Skin: Warm
Neuro: Awake, Alert, Oriented, AO x 3 and No Motor Deficits
Psych: Calm
Data Reviewed
-
Diagnostic Radiology: Image personally visualized and interpreted and Report Reviewed by me
CT Scan: Image personally visualized and interpreted and Report Reviewed by me
Ultrasound: Image personally visualized and interpreted and Report Reviewed by me
MRI: Image personally visualized and interpreted and Report Reviewed by me
Medical Tests (Nuc Med, Echo etc): Image personally visualized and interpreted and Report Reviewed by me
Labs: Labs Reviewed by me
Old Records: Reviewed
--- NOTE | 2025-06-08 11:27 | W.DCSUMMARY ---
Addendum entered and electronically signed by Felipe Sinclair MD 06/23/25 07:38:
pathology shows:
A. Appendix, appendectomy:
- Appendix with diffuse fibrous obliteration.
B. Colon, sigmoid, resection:
-Invasive adenocarcinoma, moderately differentiated with mucinous features, with
associated perforation. See comment and CAP synoptic report.
- Twenty-five benign lymph nodes (0/).
- Diverticulosis and associated abscess cavity.
- pT4a, pN0.
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
Original Note:
Discharge Summary
Discharge Data
Date of Admission: 05/26/25
Date of Discharge: 06/08/25
Total time spent discharging patient (in min): 40
-
Pending Results: Yes
Additional Pending Results:
Pathology pending.
Hospital Course
Hospital course
84-year-old female, H Right breast invasive ductal carcinoma stage III, HTN, recent Cryptosporidium infection, recent diagnosis of sigmoid mass with associated phlegmonous inflammatory changes and possible colovesical fistula in April 2025;
returned due to persistent and intermittent abdominal pain/cramp associated with nausea and nonbloody diarrhea, now for over 2 months. She also complained of weight loss, approximately 15 pounds over the past 2 months.
Seen by surgery/urology.
status post RAL low anterior resection with primary anastomosis, cystorrhaphy and flexible sigmoidoscopy. Cystoscopy with right ureteral stent and ICG for management of distal sigmoid mass with fistula to the bladder.
Symmetric show disease, started on ertapenem, and plan to discharge on oral Augmentin.
Patient developed acute blood loss anemia postoperatively.
Patient discharged home with Miranda and follow-up with urology as op.
During hospitalization patient was treated from the following
# Persistent abdominal symptoms likely due to recent diagnosis of colonic mass and possible colo-vesical fistula
status post RAL low anterior resection with primary anastomosis, cystorrhaphy and flexible sigmoidoscopy. Cystoscopy with right ureteral stent and ICG for management of distal sigmoid mass with fistula to the bladder.
Stopped augmentin, switch to ertapenem and continue; added on probiotics for diarrhea with abx; At time of dc, transition to Augmentin 875mg po bid trough 06/10
ID consulted
Adv diet to regular (patient tolerating)
OOB to Chair and ambualte when tolerated
Maintain [id number] with urology as outpatient.
Will be discharged to complete Augmentin until June,
#Acute blood loss anemia
Most likely perioperative v post operative
Monitor for any postoperative bleeding
Monitor BMs
Trend CBC
Hold chemical prophylaxis
Hold Toradol
Surg aware.
Transfuse if needed
Follow with CBC after 1 week after discharge
#LE Edema
most likely 2/2 to fluid resuscitation
ECHO shows:
Normal biventricular size and systolic function without regional wall motion
abnormality.
LV ejection fraction is 57% by volumetric assessment.
Mild to moderate aortic regurgitation.
Estimated pulmonary artery pressure of 28 mmHg. Assuming a right atrial
pressure of 3 mmHg.
Compared to prior from December 01, 2019, no significant change.
No shortness of breath
#Hypocalcemia
-monitor and replete
# Mild hyponatremia
trend
# Hypokalemia
monitor and replete
# Noted urine culture from admission positive for E coli (pansensitive), likely asymptomatic bacteruria
Pt denies to urinary symptoms (no dysuria, no frequency, no urgency)
received augmentin, now on Ertapenem
# H/o Right breast invasive ductal carcinoma, stage III
# s/p lumpectomy, course of Adriamycin/Cytoxan and paclitaxel in May
# s/p radiation
Cont SAWMILL HAND letrozole therapy
# Essential HTN
Cont SAWMILL HAND Norvasc with holding parameter
CODE STATUS:DNR
DVT prophylaxis: Lovenox on hold.
Diet: Regular diet
Disposition: Discharge home today
Total time spent on today's encounter was 40 minutes which included time spent in counseling the patient/family regarding diagnosis and treatment plan as listed above, goals of care, and symptom management. Case was discussed with nursing staff,
specialists, and care coordinators/case management. All labs and imaging personally reviewed by me. Remainder the time spent in detailed review of previous records, lab data, imaging, and other medical provider documentation.
Anticipated Discharge: Today
Discharge Plan
-
Patient Disposition: Home with Home Care
Discharge Diagnosis/Procedures: colonic mass and possible colo-vesical fistula.
Acute blood loss anemia
Diet: As tolerated and Regular
Activity: As tolerated
Additional Activity: No lifting over 10lbs (gallon of milk)
Driving Restrictions: No driving for 1 week
Blood Work: CBC after one week.
Other Services: PT and OT
Wound Care: Allow glue to naturally fall off. Do not pick at incisions.
Cover YONI drain with gauze and paper tape until incision heals. Change daily and as needed. Okay to remove to shower.
Instructions: How to care for a urinary catheter
Referrals:
Zeke Ha MD [Active, ColoRectal] - in one to two weeks
Francis Morrison MD [Active, Urology] - in less than 1 week
Michell Howard CRNP [Family Provider, Family Practice]
Additional Discharge Medication Instructions: Tylenol as needed for pain. Maximum dose of Tylenol is 4,000mg in 24 hours.
Prescriptions:
New
amoxicillin-pot clavulanate 875-125 mg Tablet
1 tab PO Q12 3 Days Qty: 6 0RF
(DME) Complete blood count
See Rx Instructions .Route .MEDSUPPLY Qty: 1 0RF
Rx Instructions:
To be done after 1 week.
Please fax result to PCP
Continued
amlodipine 2.5 MG tablet
2.5 mg PO DAILY
letrozole [Femara] 2.5 MG tablet
2.5 mg PO DAILY
cyanocobalamin (vitamin B-12) 1,000 mcg Tablet
1,000 mcg PO DAILY
acetaminophen [Tylenol Extra Strength] 500 mg Tablet
1,000 mg PO DAILYPRN PRN (Reason: mild pain)
ascorbic acid (vitamin C) [Vitamin C] 500 mg Tablet
500 mg PO DAILY
vitamin E 268 mg (400 unit) Capsule
268 mg PO DAILY
tramadol 50 mg tablet
50 mg PO BIDPRN PRN (Reason: mild pain)
Discontinued
amoxicillin-pot clavulanate 875-125 mg tablet
1 tab PO Q12H
Patient Comments:
05/26/2025, filled on 05/20/2025 and instructed to take 1 tablet Q12H for 14 days.
Discharge Orders:
Discharge Patient (As Directed); Ordered 06/08/25
Ordered By: Felipe Sinclair
Discharge Date and Time
Print Language: KAZAKH
[2025-06-08 14:00] VITALS: BP 121/73
--- NOTE | 2025-06-08 14:12 | W.PN.CRS1 ---
Today's Communication / Plan
-
ok for discharge from our perspective
follow up with Dr. Ha in 2 weeks for a post op appt
Urology follow up on friday to remove berumen
Assessment/Plan
-
Assessment: 84-year-old female POD #3 status post RAL low anterior resection with primary anastomosis, cystorrhaphy and flexible sigmoidoscopy. Cystoscopy with right ureteral stent and ICG for management of distal sigmoid mass with fistula to the
bladder.
AFVSS
Hgb 7.3 (7.2), WBC 6.5 (8.4)
Plan:
- Continue regular diet
- Pain control: Tylenol, Ultram, and Dilaudid as needed
- Maintain Berumen per urology in the setting of a bladder repair. Follow up with Dr. Morrison on Friday.
- Appreciate ID consult: Antibiotics through 06/10
- Out of bed as tolerated with physical therapy
- Continue to trend labs
- YONI drain removed
-Dispo: home with her daughter
- OR pathology pending
- Holding Lovenox due to anemia, teds and SCDs in place for DVT prophylaxis
Subjective Data
Procedure
06/03- low anterior resection with primary anastomosis, cystorrhaphy and flexible sigmoidoscopy
Subjective Data
Date of Service: June 08, 2025
Patient seen by Dr. Ha earlier. She has no complaints.
Objective Data
-
Vital Signs
Temp Pulse Resp BP Pulse Ox
97.4 F 92 16 137/75 97
06/08/25 07:20 06/08/25 07:20 06/08/25 07:20 06/08/25 07:20 06/08/25 07:20
Intake & Output
06/07/25 06/08/25 06/09/25
06:59 06:59 06:59
Intake Total 1040 / 1040 480 / 480
Output Total 500 / 500 485 / 485
Balance 540 / 540 -5 / -5
Intake:
Oral fluids 1040 / 1040 480 / 480
Output:
Drain Output (Total) 75 / 75 35 / 35
Right Lower Tim-Salguero 75 / 75 35 / 35
Urine, Berumen 300 / 300 450 / 450
Urine, Voided 125 / 125
Other:
Number of unmeasured liquid
stools
Rectum 2
Lab Results
06/08/25 07:07
06/08/25 09:58
Physical Exam
-
General: No Acute Distress and AOx3
Abdomen: Soft, Non Distended and Non Tender
Skin: Warm and Dry
Incision: Clear, Dry, Intact
--- NOTE | 2025-06-23 07:05 | PN.CDI ---
CDI
- -
CDI:
Physician Documentation Request
Admit Date: 05/26/25 16:52
Dear Doctor Dottie,
Please review the following and provide your response in the progress notes.
Clinical Indicators:
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
Additional clinical indicators in the chart include: Colonic mass with colovesical fistula
Please indicate in your progress notes if you are in agreement that the above diagnosis is valid for this patient:
____ - Sigmoid colon adenocarcinoma is a valid diagnosis (Please include it in your progress notes)
____ - Sigmoid colon adenocarcinoma is not a valid diagnosis for this patient
____ - Sigmoid colon adenocarcinoma is not yet confirmed but remains a suspected condition
____ - Other
____ - Unable to determine
Use of terms such as suspected, likely, concern for, or probable are acceptable for a diagnosis that is being evaluated, monitored or treated as if it exists and can be coded in the inpatient setting, when documented at the time of discharge.
Thank you,
Pilar Morgan
Trainmaster
Please use your independent medical judgment in providing your response.
== END 2025-06-08 15:28 | disposition home health service (06) | DRG 654 ==
LOC: 2 SOUTH 16:52
PROVIDERS: Internal Medicine; Physician Assistant; Registered Nurse; Specialist; Student in an Organized Health Care Education/Training Program; Surgery; ADMITTING PHYSICIAN Internal Medicine; ATTENDING PHYSICIAN General Practice; CONSULT PHYSICIAN Internal Medicine Infectious Disease; EMERGENCY PHYSICIAN Emergency Medicine; FAMILY PHYSICIAN Registered Nurse; OTHER PHYSICIAN Surgery
PROC: 0DTN4ZZ Resection of Sigmoid Colon, Percutaneous Endoscopic Approach (ICD-10-PCS; 2025-06-03)
PROC: 0TQB4ZZ Repair Bladder, Percutaneous Endoscopic Approach (ICD-10-PCS; 2025-06-03)
PROC: 0DJD8ZZ Inspection of Lower Intestinal Tract, Via Natural or Artificial Opening Endoscopic (ICD-10-PCS; 2025-06-03)
PROC: 0DTJ4ZZ Resection of Appendix, Percutaneous Endoscopic Approach (ICD-10-PCS; 2025-06-03)
PROC: 8E0W4CZ Robotic Assisted Procedure of Trunk Region, Percutaneous Endoscopic Approach (ICD-10-PCS; 2025-06-03)
PROC: 0DBP4ZZ Excision of Rectum, Percutaneous Endoscopic Approach (ICD-10-PCS; 2025-06-03)
DX: N32.1 Vesicointestinal fistula (principal); C18.7 Malignant neoplasm of sigmoid colon; D62 Acute posthemorrhagic anemia; E87.1 Hypo-osmolality and hyponatremia; K63.0 Abscess of intestine; R64 Cachexia; Z68.1 Body mass index [BMI] 19.9 or less, adult; I10 Essential (primary) hypertension; C50.911 Malignant neoplasm of unspecified site of right female breast; Z66 Do not resuscitate; K63.89 Other specified diseases of intestine; R60.0 Localized edema; E83.51 Hypocalcemia; E87.6 Hypokalemia; R82.71 Bacteriuria; I35.1 Nonrheumatic aortic (valve) insufficiency; Z86.19 Personal history of other infectious and parasitic diseases; Z92.3 Personal history of irradiation
CPT/HCPCS: 80048; 80053; 81003; 81015; 82330; 83690; 83735; 85014; 85018; 85025; 85027; 85610; 85730; 86850; 86900; 86901; 87045; 87046; 87077; 87086; 87186; 87324; 87328; 87329; 87427; 87449; 87798; 88304; 88307; 88309; 88342; 93306; 96361; 96374; 97116; 97162; 99284; J1335

== ENCOUNTER 2025-06-10 22:57 | Inpatient (IN) | payer OTHER, SELFPAY ==
[2025-06-10 16:38] VITALS: BP 135/70
[2025-06-10 16:40] VITALS: BMI 19.7
[2025-06-10 17:31] LABS: Hematocrit 24.9 % (37.0-47.0); Hemoglobin 7.8 g/dL (12.0-16.0); Mean Corp Hgb Conc. 31.3 g/dL (33.0-37.0); Mean Corpuscular Volume 79.3 fL (81.0-99.0); Nucleated Red Blood Cells % 0 %; Platelet Count 395 10^3/uL (130-400); Red Cell Dist. Width 16.2 % (11.5-14.5)
[2025-06-10 17:50] LABS: Lipase 65 U/L (23-300)
[2025-06-10 17:51] LABS: ALT (SGPT) 10 U/L (0-35); AST (SGOT) 22 U/L (14-36); Albumin 2.8 g/dl (3.5-5.0); Alkaline Phosphatase 68 U/L (38-126); Blood Urea Nitrogen 7 mg/dl (7-17); Calcium 8.5 mg/dl (8.4-10.2); Carbon Dioxide 29 mmol/L (22-30); Chloride 101 mmol/L (98-107); Estimated Creatinine Clearance 55 ml/min; Glucose 95 mg/dl (70-99); Potassium 3.2 mmol/L (3.5-5.1); Sodium 135 mmol/L (135-145); Total Protein 5.2 g/dl (6.3-8.2); eGFR > 60.00
[2025-06-10 18:00] VITALS: BP 182/74
[2025-06-10] MEDS: ZOFRAN 4 MG IV (18:45)
[2025-06-10] MEDS: NSS 1000 IV (18:48)
--- NOTE | 2025-06-10 19:03 | ED.GENMED ---
History of Present Illness
<Lora Mohan DO - Last Filed: 06/13/25 06:13>
General
Chief Complaint: Abdominal Symptoms
Time Seen by Provider: 06/10/25 18:08
History of Present Illness
History of Present Illness:
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 Patient was discharged in the hospital 2 days ago. She notes that she felt okay initially upon
discharge, however yesterday started to have nausea and vomiting. She has been unable to tolerate any food or liquid. Denies associated abdominal pain. She has been passing stool, however notes that they have been formed, however soft. Denies
chest pain or difficulty breathing. Denies fever. She is concerned for dehydration. Patient still has a Miranda in place, due to be removed on Friday. Denies additional acute medical complaints
Past History
<Lora Mohan DO - Last Filed: 06/13/25 06:13>
Past History
ED Past Medical History: None
ED Past Surgical History: None
Social History
Tobacco: Non-smoker
Phy Exam
<Lora Mohan DO - Last Filed: 06/13/25 06:13>
Physical Exam
Physical Exam:
General: Well-appearing, no clinical signs of dehydration, nontoxic and in no acute distress
HEENT: protecting airway
Neck: appears supple
CV: Normal heart rate, regular rhythm
Resp: No accessory muscle use, no increased work of breathing, lungs clear to auscultation bilaterally
Abd: Soft and non-distended, no tenderness to palpation, healing incisions across the abdomen without significant drainage. Mild erythema to LUQ port side without tenderness.
Extremities: No deformities, no swelling
Neuro: alert, no focal neurologic deficit
: deferred
Rectal: deferred
Psych: Normal affect
Skin: Intact
Course
<Lora Mohan, DO - Last Filed: 06/13/25 06:13>
Orders/Labs/Results
Orders:
Orders
06/10/25 00:00
Ertapenem [Invanz] 1,000 mg 0.9% Sodium Chloride [Nss] 50 ml IV Q24H
06/10/25 Breakfast
NPO
Allow oral meds: Yes
Allow clear liquids: Sips of Clears
06/10/25 16:32
Electrocardiogram (*1) Urgent
Reason for Study: Abdominal Pain
EKG- Treatment ONCE
06/10/25 17:24
Complete Blood Count/With Diff Urgent
Comprehensive Metabolic Panel Urgent
Lipase Urgent
06/10/25 18:29
0.9% Sodium Chloride 1000 ml [Nss] 1,000 ml IV BOLUS
Ondansetron Injectable [Zofran] 4 mg IV NOW STA
06/10/25 19:02
Iohexol [Omnipaque] See Protocol PO NOW STA
06/10/25 20:00
CT Abd/pelvis W Iv Cont Urgent
Comment:
Reason For Exam: intractable N/V after colorectal surgery
06/10/25 21:04
Metoclopramide [Reglan] 10 mg IV NOW STA
06/10/25 22:41
Admit/Transfer Patient As Directed
Co-Sign Provider:
Level of Care: Inpatient admission
Assign to:: Medical/Surgical
Physician / Group: Jonathan
Diagnosis: N/V
Reason for Hospitalization: N/V
Expected length of stay greater than two midnights?: Yes
ELOS- Estimated Length of Stay in days: 2
I certify the patient meets the requirements for IP care: Yes
PRN Pain Medication Management As Directed
May give lesser potent ordered pain med per pt: Yes
preference::
Protocol:: Medication orders for pain may be administered in a
manner that supports deferring to patient preference
when the pt is:
- Requesting an ordered lesser potent pain medication.
Least to most potent pain medications are defined
as: acetaminophen < NSAID < tramadol < opioids
(morphine, oxycodone, hydromorphone).
- Requesting a lesser dose of the same medication IF
ORDERED.
- Requesting a less intrusive route of administration
if both routes are prescribed by the provider (PO <
IV).
06/10/25 22:42
Code Status As Directed
Resuscitation Status: Do not resuscitate
Reached after discussion with pt or family/Healthcare POA: Yes
06/10/25 22:43
DNR Bracelet Application ONCE
06/10/25 23:53
Acetaminophen [Tylenol] 650 mg PO Q4HPRN PRN
Lactated Ringers [Lr] 1,000 ml IV 100 mls/hr
Ondansetron Injectable [Zofran] 4 mg IV Q6HPRN PRN
Prochlorperazine [Compazine] 5 mg IV Q6HPRN PRN
06/10/25 23:53
ColoRectal Surgery Consult Routine
Consulting Provider: Earl Francis
Was physician already notified: Yes
Reason for consult: Intractable N/V. s/p LAR
Ferritin Routine
Iron Routine
Total Iron Binding Routine
Activity As Directed
Activity Level: Ambulate
Miranda Catheter [Catheter- Indwelling] As Directed
Reason for insertion: Chronic Miranda on Admit
I/O [Intake/ Output] As Directed
Frequency: Per unit guidelines
Pneumatic Compression Sleeves As Directed
Type: Knee high
Vital Signs As Directed
Frequency: Per unit guidelines
Weight As Directed
Frequency: Daily
Oxygen Therapy [O2 Therapy] [RESP] Routine
Titrate/Wean O2 to maintain O2 sat greater than (%): 94
DX Deep Vein Thrombosis Video Routine
06/11/25 07:43
Basic Metabolic Panel IN AM
Complete Blood Count/No Diff IN AM
06/11/25 08:00
Amlodipine [Norvasc] 2.5 mg PO DAILY
Potgekvxw-Lxg-Iqea [Femara] 2.5 mg PO DAILY
Pantoprazole [Protonix] 40 mg PO DAILY
Abnormal Lab Results
06/10/25
17:24
WBC 11.4 H 10^3/uL
(4.8-10.8)
RBC 3.14 L 10^6/uL
(4.20-5.40)
Hgb 7.8 L g/dL
(12.0-16.0)
Hct 24.9 L %
(37.0-47.0)
MCV 79.3 L fL
(81.0-99.0)
MCH 24.8 L pg
(27.0-31.0)
MCHC 31.3 L g/dL
(33.0-37.0)
RDW 16.2 H %
(11.5-14.5)
Abs Immat Gran (auto) 0.1 H 10^3/uL
(0-0.05)
Absolute Neuts (auto) 8.5 H 10^3/uL
(1.4-6.5)
Immature Gran % 0.7 H %
(0-0.5)
Lymphocytes % 18.7 L %
(20.5-51.1)
Potassium 3.2 L mmol/L
(3.5-5.1)
Creatinine 0.5 L mg/dL
(0.6-1.0)
Total Protein 5.2 L g/dl
(6.3-8.2)
Albumin 2.8 L g/dl
(3.5-5.0)
06/10/25 17:24
06/10/25 17:24
Vital Signs
Initial and Last Documented VS:
Initial Vital Signs
Resp Pulse Ox
12 98
06/10/25 16:33 06/10/25 16:33
Last Documented Vital Signs
Temp Pulse Resp BP Pulse Ox
98.0 F 90 14 148/77 95
06/12/25 23:30 06/12/25 23:30 06/12/25 23:30 06/12/25 23:30 06/12/25 23:30
Abhinavlt;Ina Mcgarry, DO - Last Filed: 06/11/25 02:49>
Orders/Labs/Results
Orders:
Orders
06/10/25 00:00
Ertapenem [Invanz] 1,000 mg 0.9% Sodium Chloride [Nss] 50 ml IV Q24H
06/10/25 Breakfast
NPO
Allow oral meds: Yes
Allow clear liquids: Sips of Clears
06/10/25 16:32
Electrocardiogram (*1) Urgent
Reason for Study: Abdominal Pain
EKG- Treatment ONCE
06/10/25 17:24
Complete Blood Count/With Diff Urgent
Comprehensive Metabolic Panel Urgent
Lipase Urgent
06/10/25 18:29
0.9% Sodium Chloride 1000 ml [Nss] 1,000 ml IV BOLUS
Ondansetron Injectable [Zofran] 4 mg IV NOW STA
06/10/25 19:02
Iohexol [Omnipaque] See Protocol PO NOW STA
06/10/25 20:00
CT Abd/pelvis W Iv Cont Urgent
Comment:
Reason For Exam: intractable N/V after colorectal surgery
06/10/25 21:04
Metoclopramide [Reglan] 10 mg IV NOW STA
06/10/25 22:41
Admit/Transfer Patient As Directed
Co-Sign Provider:
Level of Care: Inpatient admission
Assign to:: Medical/Surgical
Physician / Group: Jonathan
Diagnosis: N/V
Reason for Hospitalization: N/V
Expected length of stay greater than two midnights?: Yes
ELOS- Estimated Length of Stay in days: 2
I certify the patient meets the requirements for IP care: Yes
PRN Pain Medication Management As Directed
May give lesser potent ordered pain med per pt: Yes
preference::
Protocol:: Medication orders for pain may be administered in a
manner that supports deferring to patient preference
when the pt is:
- Requesting an ordered lesser potent pain medication.
Least to most potent pain medications are defined
as: acetaminophen < NSAID < tramadol < opioids
(morphine, oxycodone, hydromorphone).
- Requesting a lesser dose of the same medication IF
ORDERED.
- Requesting a less intrusive route of administration
if both routes are prescribed by the provider (PO <
IV).
06/10/25 22:42
Code Status As Directed
Resuscitation Status: Do not resuscitate
Reached after discussion with pt or family/Healthcare POA: Yes
06/10/25 22:43
DNR Bracelet Application ONCE
06/10/25 23:53
Acetaminophen [Tylenol] 650 mg PO Q4HPRN PRN
Lactated Ringers [Lr] 1,000 ml IV 100 mls/hr
Ondansetron Injectable [Zofran] 4 mg IV Q6HPRN PRN
Prochlorperazine [Compazine] 5 mg IV Q6HPRN PRN
06/10/25 23:53
ColoRectal Surgery Consult Routine
Consulting Provider: Earl Francis
Was physician already notified: Yes
Reason for consult: Intractable N/V. s/p LAR
Ferritin Routine
Iron Routine
Total Iron Binding Routine
Activity As Directed
Activity Level: Ambulate
Miranda Catheter [Catheter- Indwelling] As Directed
Reason for insertion: Chronic Miranda on Admit
I/O [Intake/ Output] As Directed
Frequency: Per unit guidelines
Pneumatic Compression Sleeves As Directed
Type: Knee high
Vital Signs As Directed
Frequency: Per unit guidelines
Weight As Directed
Frequency: Daily
Oxygen Therapy [O2 Therapy] [RESP] Routine
Titrate/Wean O2 to maintain O2 sat greater than (%): 94
DX Deep Vein Thrombosis Video Routine
06/11/25 07:43
Basic Metabolic Panel IN AM
Complete Blood Count/No Diff IN AM
06/11/25 08:00
Amlodipine [Norvasc] 2.5 mg PO DAILY
Qbmucxibr-Zgr-Wjkm [Femara] 2.5 mg PO DAILY
Pantoprazole [Protonix] 40 mg PO DAILY
Abnormal Lab Results
06/10/25
17:24
WBC 11.4 H 10^3/uL
(4.8-10.8)
RBC 3.14 L 10^6/uL
(4.20-5.40)
Hgb 7.8 L g/dL
(12.0-16.0)
Hct 24.9 L %
(37.0-47.0)
MCV 79.3 L fL
(81.0-99.0)
MCH 24.8 L pg
(27.0-31.0)
MCHC 31.3 L g/dL
(33.0-37.0)
RDW 16.2 H %
(11.5-14.5)
Abs Immat Gran (auto) 0.1 H 10^3/uL
(0-0.05)
Absolute Neuts (auto) 8.5 H 10^3/uL
(1.4-6.5)
Immature Gran % 0.7 H %
(0-0.5)
Lymphocytes % 18.7 L %
(20.5-51.1)
Potassium 3.2 L mmol/L
(3.5-5.1)
Creatinine 0.5 L mg/dL
(0.6-1.0)
Total Protein 5.2 L g/dl
(6.3-8.2)
Albumin 2.8 L g/dl
(3.5-5.0)
06/10/25 17:24
06/10/25 17:24
Vital Signs
Initial and Last Documented VS:
Initial Vital Signs
Resp Pulse Ox
12 98
06/10/25 16:33 06/10/25 16:33
Last Documented Vital Signs
Temp Pulse Resp BP Pulse Ox
98.0 F 90 14 148/77 95
06/12/25 23:30 06/12/25 23:30 06/12/25 23:30 06/12/25 23:30 06/12/25 23:30
<Lora Mohan DO - Last Filed: 06/13/25 06:13>
MDM/Problems Addressed
MDM/Problems Addressed:
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
vomiting. Vital signs are significant for high blood pressure.
On exam, patient is resting comfortably, no acute distress, however is having retching. No tenderness to the abdomen, soft and nondistended. Patient's incisions appear to be healing. For this reason, lower suspicion for complication. However,
patient has been unable to tolerate any food or liquid since yesterday, so obstruction is a consideration. Screening laboratory analysis obtained, normal electrolytes, mild leukocytosis, stable anemia. Will discuss with colorectal. For
therapeutics, will start patient on IV fluids and Zofran.
19:00 - In discussion with colorectal, will advising CT with IV and oral contrast for rule out ileus versus obstruction
19:30 -patient unable to tolerate oral contrast. Will proceed with CT with IV contrast.
<Lora Mohan DO - Last Filed: 06/13/25 06:13>
*Pulse Oximetry
SaO2: 99
Patient hypoxic: no
*Critical Care Note
Total Time (30-74mins, 75-104mins- exclusive of procedures): Not Applicable
<Ina Mcgarry DO - Last Filed: 06/11/25 02:49>
Update Note
Update Note:
Patient received in signout at [address] abdomen pelvis[address] CT abdomen pelvis shows no bowel obstruction. On reevaluation, patient still continues to report nausea/vomiting. Ordered Reglan. Abdomen soft nondistended nontender, well healing
surgical incisions with no overlying erythema or discharge. Discussed with hospitalist for admission for intractable nausea/vomiting
ED Attending Note
<Lora Mohan DO - Last Filed: 06/13/25 06:13>
-
Portions of this chart may have been created with voice recognition software.� Occasional wrong word or��sound alike� substitutions may have occurred due to the inherent limitations of voice recognition software.
Discharge Plan
Departure
Patient Disposition: Admit
Date of Disposition: 06/10/25
Time of Disposition: 22:07
Presentation/result/management discussed w/ accepting MD/DO: Hospitalist
Discharge Problem:
Intractable nausea and vomiting
Interventions
Interventions:
*Risk Screen - Suicide Last Done: 06/10/25 16:37
*General Assessment Last Done: 06/10/25 16:36
*Neglect/Abuse Screening Last Done: 06/10/25 16:37
*ED- Fall Risk Assessment Last Done: 06/10/25 16:36
*ED COVID-19 Vaccine History Last Done: 06/10/25 16:36
*Nursing Disposition Last Done: 06/10/25 23:57
CW-Ermjbz-Etxrhzawdr Assessment Last Done: 06/10/25 17:39
Discharge Date and Time
Discharge Date/Time: 06/10/25 23:57
[2025-06-10 19:23] VITALS: BP 173/81
[2025-06-10 20:00] VITALS: BP 174/79
[2025-06-10] MEDS: REGLAN 10 MG IV (21:19)
[2025-06-10 21:22] VITALS: BP 163/73
[2025-06-10 22:15] VITALS: BP 158/92
--- NOTE | 2025-06-10 22:46 | HPS.HSE ---
Family Physician
-
Family Physician: GARRISON Sargent
Chief Complaint
-
N/V
History of Present Illness
Patient is an 84y F with PMH significant for breast cancer, hypertension and recent hospitalization for colovesicular fistula who presents to ED complaining of N/V. Patient was admitted 05/26 - 06/08 for colovesicular fistula. She had surgery on
06/03 that included robotic low anterior resection and primary anastomosis and repair of bladder defect. Diet was advanced post-op which patient tolerated fairly well. She was maintained on ertapenem during her stay and transitioned to Augmentin
prior to discharge. Patient was discharged to home on Friday. She states that she developed nausea on and has had multiple episodes of emesis since that time. She reports about 4-5 episodes of emesis per day. Patient notes that
emesis is triggered by any attempt to eat / drink. She also has episodes of bilious emesis when she is not trying to eat / drink.
Patient denies any significant abdominal pain. She denies any fevers / chills. She denies any other new complaints since her recent hospitalization.
Medical History
Past Medical History
Past Medical History: Reports Other
Additional Past Medical History:
Right Breast Cancer s/p Lumpectomy and Chemo / XRT
Hypertension
Diverticular Disease
Colovesicular Fistula
Hyperparathyroidism
Past Surgical History: Reports Other
Additional Past Surgical History:
Right Lumpectomy
Port Placement / Removal
Bilateral TKA
Robotic Low Anterior Resection with Primary Anastomosis, Right Ureteral Stent Placement, Robotic Cystorrhaphy (06/03/25)
Social History
Tobacco: Non-smoker
Alcohol: None
Drug: None
Family History
Family History: Not pertinent
Allergies / Home Medications
Allergies reflects when Allergies were last updated in [facility].
Home Medications with original date entered in [facility]
Allergy/Medication List:
Allergies
Allergy/AdvReac Type Severity Reaction Status Date / Time
No Known Allergies Allergy Verified 06/10/25 16:56
Home Medications
amlodipine 2.5 mg tablet 2.5 mg PO DAILY Blood Pressure 04/08/12
letrozole 2.5 mg tablet (Femara) 2.5 mg PO DAILY breast cancer 03/08/21
acetaminophen 500 mg tablet (Tylenol Extra Strength) 1,000 mg PO DAILYPRN PRN mild pain 04/13/25
ascorbic acid (vitamin C) 500 mg tablet (Vitamin C) 500 mg PO DAILY Supplement 04/13/25
cyanocobalamin (vitamin B-12) 1,000 mcg tablet 1,000 mcg PO DAILY Supplement 04/13/25
vitamin E 268 mg (400 unit) capsule 268 mg PO DAILY Supplement 04/13/25
tramadol 50 mg tablet 50 mg PO BIDPRN PRN mild pain 05/26/25
amoxicillin 875 mg-potassium clavulanate 125 mg tablet 1 tab PO Q12 3 days #6 tabs 06/08/25
Review of Systems
-
History Source: Patient
A 12 point ROS was completed and negative except as noted: Yes
Constitutional: Reports Fatigue; Denies Fever or Chills
Respiratory: Denies Cough or Trouble Breathing
Cardiac: Denies Chest Pain or Palpitations
Abdomen/GI: Reports Nausea and Vomiting; Denies Abdominal Pain, Diarrhea, Constipated or Bloody Stools
: Denies Dysuria or Frequency
Musculoskeletal: Denies Joint Pain or Edema
Neurological: Denies Dizzy or Headache
Physical Exam
Vital Signs
Vital Signs
Temp Pulse Resp BP Pulse Ox
98.4 F 95 13 163/73 99
06/10/25 16:41 06/10/25 21:45 06/10/25 21:45 06/10/25 21:22 06/10/25 21:45
Physical Exam
General: Other (84y F in no acute distress.)
HEENT: Moist mucous membranes and PERRLA
Respiratory: Clear; No Wheezes, Rales or Rhonchi
Cardiac: S1/S2 and Regular Rhythm; No Murmur
GI: Other (Abdomen is soft and not tender. LUQ port site red, raised, firm and mildly tender. No discharge / bleeding. Other sites appear unremarkable. Bowel sounds are present but diminished.)
Genito-urinary: Other (Miranda in place draining light yellow urine in device.)
Musculoskeletal: No Clubbing, No Cyanosis and Other (1+ pitting edema b/l LEs.)
Neuro: AO x 3
Laboratory Results
-
06/10/25 17:24
06/10/25 17:24
Laboratory Results
Total Bilirubin 0.6 mg/dl (0.2-1.3) 06/10/25 17:24
AST 22 U/L (14-36) 06/10/25 17:24
ALT 10 U/L (0-35) 06/10/25 17:24
Alkaline Phosphatase 68 U/L (38-126) 06/10/25 17:24
Lipase 65 U/L (23-300) 06/10/25 17:24
Impression/Plan
-
A/P: Patient is an 84y F with PMH significant for hypertension, breast cancer and recent surgery for colovesicular fistula who presents to ED complaining of intractable N/V since discharge.
Intractable N/V
- Admit for further evaluation and treatment.
- ? post-op ileus, adverse effect of med (PO abx) or other.
- Patient is not ill-appearing.
- IVF support.
- Antiemetics PRN.
- Colorectal Surgery evaluation for additional recommendations.
- Follow for improvement in symptoms.
Colovesicular Fistula
s/p Robotic LAR 06/03/25
- LUQ port site with erythema, tenderness and slightly raised appearance.
- Colorectal Surgery eval as noted above.
- CT scan done in the ED today with multiple abnormal findings - likely all expected post-op findings after recent robotic surgery.
- Hold further Augmentin - will give ertapenem dose for now to complete abx course.
- Maintain Miranda catheter for now - tentatively scheduled for removal on Friday.
- Follow abdominal exam for changes.
- Path from surgery / mass excision is pending.
Post-Op Blood Loss Anemia
- Hgb is stable / slightly improved from discharge.
- Check iron studies and consider iron replacement therapy.
- Follow H&H and transfuse if < 7.
Benign Hypertension
- Stable. Continue amlodipine with holding parameters.
Mild Hypokalemia
- IVFs with supplemental potassium.
- Follow lytes and adjust replacement as needed.
History of Breast Cancer
- Continue letrozole.
DVT Prophylaxis: SCDs
Code Status: DNR
[2025-06-11 00:04] VITALS: BP 107/90; BMI 18.5
--- NOTE | 2025-06-11 00:10 | PTCARENOTE ---
Pt arrived to [facility] from ED, ambulating independently. VSS, pt reports nausea but no pain. PRN IV Zofran provided. POC reviewed with pt. Home medications brought in by patient were sent down to pharmacy, including pt's tramadol 50mg tablets.
[2025-06-11] MEDS: INVANZ IV (01:16)
[2025-06-11] MEDS: ZOFRAN 4 MG IV ×2 (01:19→08:47)
[2025-06-11] MEDS: LR 1000 IV ×3 (01:19→21:25)
[2025-06-11 01:21] LABS: Iron 30 ug/dl (37-170)
[2025-06-11 01:31] LABS: Total Iron Binding Capacity 171 ug/dl (265-497)
[2025-06-11 02:14] LABS: Ferritin 162.0 ng/ml (11.1-264.0)
[2025-06-11] MEDS: INVANZ 60 MG IV ×2 (02:16→23:25)
[2025-06-11 06:00] VITALS: BMI 18.5
[2025-06-11 07:00] VITALS: BP 155/73
[2025-06-11 08:25] LABS: Hematocrit 25.2 % (37.0-47.0); Hemoglobin 8.0 g/dL (12.0-16.0); Mean Corp Hgb Conc. 31.7 g/dL (33.0-37.0); Mean Corpuscular Volume 78.0 fL (81.0-99.0); Platelet Count 393 10^3/uL (130-400); Red Cell Dist. Width 15.9 % (11.5-14.5)
--- NOTE | 2025-06-11 08:38 | W.PN.HOSP.TC ---
Today's Communication/Plan
-
Keep n.p.o. till surgical eval
Continue with IV fluids
Continue with antiemetics
Continue with antibiotics
Assessment / Plan
Assessment / Plan
A/P: Patient is an 84y F with PMH significant for hypertension, breast cancer and recent surgery for colovesicular fistula who presents to ED complaining of intractable N/V since discharge.
Intractable N/V
- ? post-op ileus, adverse effect of med (PO abx) or other.
- Patient is not ill-appearing. No abdominal distention. No abdominal tenderness.
- IVF support.
- Antiemetics PRN.
- Colorectal Surgery evaluation for additional recommendations.
- Follow for improvement in symptoms.
Colovesicular Fistula
s/p Robotic LAR 06/03/25
- LUQ trocar site with erythema, tenderness and slightly raised appearance.
- Colorectal Surgery eval as noted above.
- CT scan done in the ED today with multiple abnormal findings - likely all expected post-op findings after recent robotic surgery.
- Hold further Augmentin -continue ertapenem dose for now to complete abx course.
- Maintain Miranda catheter for now - tentatively scheduled for removal on Friday.
- Follow abdominal exam for changes.
- Path from surgery / mass excision is pending.
Post-Op Blood Loss Anemia
- Hgb is stable / slightly improved from discharge.
- Iron studies suggest anemia of chronic disease
- Follow H&H and transfuse if < 7.
Benign Hypertension
- Stable. Continue amlodipine with holding parameters.
Mild Hypokalemia
- Labs from today pending
- IVFs with supplemental potassium.
- Follow lytes and adjust replacement as needed.
History of Breast Cancer
- Continue letrozole.
DVT Prophylaxis: SCDs
Code Status: DNR
Anticipated Discharge: > 48 hours
Subjective/Interval History
-
Date of Service: June 11, 2025
Patient still with persistent nausea. She had 3 bowel movements since hospitalizations which were loose. Denies much of abdominal pain. She thinks she has got some abdominal discomfort because she no food in her system .she has not had anything
to eat for last 2 days.
She did not think she might of had Augmentin in the past.
No abdominal distention.
No fever or chills.
Denies shortness of breath.
Objective Data
-
Labs:
Laboratory Results
06/11/25
07:43
WBC 9.5
Hgb 8.0 L
Hct 25.2 L
Plt Count 393
Sodium Pending
Potassium Pending
Chloride Pending
Carbon Dioxide Pending
BUN Pending
Creatinine Pending
Glucose Pending
Calcium Pending
Vital Signs:
Vital Signs
Temp Pulse Resp BP Pulse Ox
98.3 F 95 20 107/90 98
06/11/25 00:04 06/11/25 00:04 06/11/25 00:04 06/11/25 00:04 06/11/25 00:10
I&O
06/10/25 06/11/25 06/12/25
06:59 06:59 06:59
Intake Total 360 / 360
Output Total 250 / 250
Balance 110 / 110
Physical Exam
-
General: Negative Respiratory Distress
Respiratory: Clear to Auscultation and Non Labored Respirations; Negative Accessory Resp Muscle Use
Cardiac: Regular Rhythm, S1/S2 and Tachycardic
GI: Soft, Nontender, Nondistended, Normal Bowel Sounds and Other (One of the trocar site is swollen slightly red)
Musculoskeletal: No Edema
Neuro: AO x 3
Psych: Calm; Negative Confused
Data Reviewed
-
Labs: Labs Reviewed by me
[2025-06-11] MEDS: FEMARA 2.5 MG PO (08:45)
[2025-06-11] MEDS: PROTONIX 40 MG PO (08:45)
[2025-06-11] MEDS: NORVASC 2.5 MG PO (08:47)
[2025-06-11 08:54] LABS: Blood Urea Nitrogen 3 mg/dl (7-17); Calcium 8.1 mg/dl (8.4-10.2); Carbon Dioxide 27 mmol/L (22-30); Chloride 99 mmol/L (98-107); Estimated Creatinine Clearance 51 ml/min; Glucose 78 mg/dl (70-99); Potassium 3.2 mmol/L (3.5-5.1); Sodium 133 mmol/L (135-145); eGFR > 60.00
--- NOTE | 2025-06-11 10:15 | CM ---
Patient seen at bedside
IA completed
Lives alone in 1 story home, [address]
PLOF: Independent
Denies DME
Current with [facility]
[place] in past
Denies insecurities
PCP: Michell Howard
Pharmacy: [facility]
PLAN: home, with VY with [facility] when stable
[2025-06-11] MEDS: COMPAZINE 5 MG IV (11:40)
[2025-06-11 11:44] VITALS: BMI 18.5
--- NOTE | 2025-06-11 12:45 | CON.GS ---
Consultation
-
Date/Time Consultation Performed: 06/11/25 1030
Medical History
-
Chief Complaint: N/V
History of Present Illness:
Ms Pillai is an 84 yo female with recent hospitalization for complications of a colovesical fistula who underwent a robotic assisted laparoscopic low anterior resection with cystorrhaphy on 06/03/25 and was subsequently discharged to home with berumen
in place on 06/08/2025 once she had good return of bowel function and adequate pain control. She completed her course of antibiotics earlier this week after returning home. She notes that initially she was doing well, but over the past 2 days has
become increasingly nauseated with vomiting causing her to present for evaluation. On exam, there is erythema to the LUQ incision site with some induration/edema. Other incisions are healing well. The berumen is draining clear, straw colored urine.
There is no abdominal pain, tenderness or distention. She notes 3 episodes of diarrhea overnight with episode of emesis early this morning.
Past Medical History
Past Medical History: Cancer (right breast s/p lumpectomy, chemo, xrt), Diverticulitis, HTN and Other (colovesical fistula)
Past Surgical History: Bowel Resection (robotic assisted laparoscopic low anterior resection with cystorrhaphy on 06/03/25), Orthopedic (BL TKA) and Other (port placement and removal, right lumpectomy, parathyroidectomy)
Social History
Tobacco: Non-Smoker
Alcohol: None
Family History
Family History: Reviewed & Not Pertinent
Allergies / Home Medications
Allergy/AdvReac Type Severity Reaction Status Date / Time
No Known Allergies Allergy Verified 06/10/25 16:56
�Medication �Instructions �Recorded �Confirmed �Type
amlodipine 2.5 mg tablet 2.5 mg PO DAILY Blood Pressure 04/08/12 06/11/25 History
letrozole 2.5 mg tablet (Femara) 2.5 mg PO DAILY breast cancer 03/08/21 06/11/25 History
acetaminophen 500 mg tablet 1,000 mg PO DAILYPRN PRN mild pain 04/13/25 06/11/25 History
(Tylenol Extra Strength)
ascorbic acid (vitamin C) 500 mg 500 mg PO DAILY Supplement 04/13/25 06/11/25 History
tablet (Vitamin C)
cyanocobalamin (vitamin B-12) 1,000 mcg PO DAILY Supplement 04/13/25 06/11/25 History
1,000 mcg tablet
vitamin E 268 mg (400 unit) capsule 268 mg PO DAILY Supplement 04/13/25 06/11/25 History
tramadol 50 mg tablet 50 mg PO BIDPRN PRN mild pain 05/26/25 06/11/25 History
amoxicillin 875 mg-potassium 1 tab PO Q12 3 days #6 tabs 06/08/25 06/11/25 Rx
clavulanate 125 mg tablet
Review of Systems
-
History Source: Patient
All other systems: Negative unless noted
A 10 point review of systems was completed, and was negative except as per HPI.
Physical Exam
Vital Signs
Temp Pulse Resp BP Pulse Ox
98.4 F 81 16 155/73 98
06/11/25 07:00 06/11/25 07:00 06/11/25 07:00 06/11/25 07:00 06/11/25 07:00
06/10/25 06/11/25 06/12/25
06:59 06:59 06:59
Actual Weight 45.87 kg
Body Mass Index (BMI) 18.5
Lab Results
06/11/25 07:43
06/11/25 07:43
WBC 9.5 10^3/uL (4.8-10.8) 06/11/25 07:43
Hgb 8.0 g/dL (12.0-16.0) L 06/11/25 07:43
Hct 25.2 % (37.0-47.0) L 06/11/25 07:43
Plt Count 393 10^3/uL (130-400) 06/11/25 07:43
Abs Immat Gran (auto) 0.1 10^3/uL (0-0.05) H 06/10/25 17:24
Neutrophils % 74.5 % (42.2-75.2) 06/10/25 17:24
Physical Exam
General: Well Developed and Well Nourished
HEENT: Moist Mucous Membranes
Respiratory: Non Labored Respirations
GI: Soft, Non Tender and Non Distended
Rectal: Other (no erythema ); Negative Tenderness
Genito-urinary: Other (no erythema, crepitus)
Skin: Warm, Dry and Other (erythema to LUQ incision with edema, others healing well)
Neuro: Awake, Alert and AO x 3
Psych: Calm
Data Reviewed
-
CT Scan: Image Personally Visualized and interpreted, Report Reviewed by me, Discussed with Physician and Discussed with Patient
Labs: Labs Reviewed by me, Discussed with Physician and Discussed with Patient
Old Records: Reviewed
Assessment / Plan
-
84 yo female who is POD #8 robotic assisted laparoscopic low anterior resection with cystorrhaphy presenting for n/v x2 days. She has noted erythema to luq port site, otherwise, abdominal and perineal exam is benign. CT imaging reviewed with
presence of air in the perineum and superficial soft tissues consistent with recent surgery. Heterogeneous low-attenuation density is seen involving the midline anterior abdominal wall deep soft tissues best appreciated on axial image 55, series 201
measuring 9.2 x 16.8 x 1.4 cm with at least one bubble of air within, unclear if hematoma vs seroma. No bowel distention, abnormal findings which would explain her ongoing nausea and vomiting.
Plan:
Continue ABX and follow erythema to left port site, may need bedside reopening of the incision if no improvement
NPO until n/v improved
Follow on antiemetics prn
C/W berumen for now
Medical management as per primary team
[2025-06-11 15:00] VITALS: BP 129/65
[2025-06-11 23:56] VITALS: BP 144/69
[2025-06-12 06:00] VITALS: BMI 18.2
[2025-06-12 06:33] LABS: Hematocrit 23.3 % (37.0-47.0); Hemoglobin 7.4 g/dL (12.0-16.0); Mean Corp Hgb Conc. 31.8 g/dL (33.0-37.0); Mean Corpuscular Volume 78.5 fL (81.0-99.0); Platelet Count 406 10^3/uL (130-400); Red Cell Dist. Width 16.0 % (11.5-14.5)
[2025-06-12 06:56] LABS: Blood Urea Nitrogen 3 mg/dl (7-17); Calcium 8.0 mg/dl (8.4-10.2); Carbon Dioxide 32 mmol/L (22-30); Chloride 101 mmol/L (98-107); Estimated Creatinine Clearance 51 ml/min; Glucose 74 mg/dl (70-99); Potassium 2.9 mmol/L (3.5-5.1); Sodium 135 mmol/L (135-145); eGFR > 60.00
[2025-06-12 07:00] VITALS: BP 152/69
[2025-06-12] MEDS: XYLOCAINE 2% WITH EPINEPHRINE 20 ML INFIL (08:31)
[2025-06-12] MEDS: LR IV (08:31)
[2025-06-12] MEDS: PROTONIX 40 MG PO (08:32)
[2025-06-12] MEDS: FEMARA 2.5 MG PO (08:32)
[2025-06-12] MEDS: NORVASC 2.5 MG PO (08:32)
[2025-06-12] MEDS: COMPAZINE 5 MG IV (08:41)
--- NOTE | 2025-06-12 13:20 | W.PN.HOSP.TC ---
Today's Communication/Plan
-
Assessment / Plan
Assessment / Plan
A/P: Patient is an 84y F with PMH significant for hypertension, breast cancer and recent surgery for colovesicular fistula who presents to ED complaining of intractable N/V since discharge.
Intractable N/V
- ? post-op ileus, adverse effect of med (PO abx) or other.
- Patient is not ill-appearing. No abdominal distention. No abdominal tenderness.
- IVF support.
- Antiemetics PRN.
- Colorectal Surgery evaluation for additional recommendations.
- Follow for improvement in symptoms.
Colovesicular Fistula
s/p Robotic LAR 06/03/25
- LUQ trocar site with erythema, tenderness and slightly raised appearance.
- Colorectal Surgery eval as noted above.
- CT scan done in the ED today with multiple abnormal findings - likely all expected post-op findings after recent robotic surgery.
- Hold further Augmentin -continue ertapenem dose for now to complete abx course.
- Maintain Miranda catheter for now - tentatively scheduled for removal on Friday.
- Follow abdominal exam for changes.
- Path from surgery / mass excision is pending.
Post-Op Blood Loss Anemia
- Hgb is stable / slightly improved from discharge.
- Iron studies suggest anemia of chronic disease
- Follow H&H and transfuse if < 7.
Benign Hypertension
- Stable. Continue amlodipine with holding parameters.
Hypokalemia
- Replete aggressively
- Monitor on telemetry.
History of Breast Cancer
- Continue letrozole.
DVT Prophylaxis: SCDs
Code Status: DNR
Anticipated Discharge: > 48 hours
Subjective/Interval History
-
Date of Service: June 12, 2025
Seen and examined. No new complaints. No acute overnight events.
Objective Data
-
Labs:
Laboratory Results
06/12/25
06:02
WBC 7.4
Hgb 7.4 L
Hct 23.3 L
Plt Count 406 H
Sodium 135
Potassium 2.9 L
Chloride 101
Carbon Dioxide 32 H
BUN 3 L
Creatinine 0.5 L
Glucose 74
Calcium 8.0 L
Vital Signs:
Vital Signs
Temp Pulse Resp BP Pulse Ox
97.8 F 72 16 152/69 97
06/12/25 07:00 06/12/25 08:32 06/12/25 07:00 06/12/25 08:32 06/12/25 07:00
I&O
06/11/25 06/12/25 06/13/25
06:59 06:59 06:59
Intake Total 360 / 360 1540 / 1540
Output Total 250 / 250 600 / 600
Balance 110 / 110 -600 / -600 1540 / 1540
Physical Exam
-
General: Comfortable
HEENT: Normocephalic, Atraumatic and Anicteric
Respiratory: Clear to Auscultation
Cardiac: S1/S2
GI: Soft, Nontender, Nondistended and Normal Bowel Sounds
Musculoskeletal: No Clubbing and No Cyanosis
Skin: Other (Left upper quadrant, area of macular erythema with blistering in the center.)
Neuro: AO x 3
[2025-06-12] MEDS: KCL 270 MEQ IV (13:47)
[2025-06-12 15:00] VITALS: BP 168/81
--- NOTE | 2025-06-12 16:27 | W.PN.CRS1 ---
Today's Communication / Plan
-
I&D of LUQ incision with cx sent
Clears as tolerated. Send stool cx
Assessment/Plan
-
84 yo F POD 9 s/p robotic LAR with takedown colovesical fistula and bladder repair on 06/03/25 disharged on 06/08 and readmitted on 06/10 due to nausea/emesis/food intolerance.
CTA/P shows no obvious intraperitoneal or intestinal process. Seen in subcutaneous emphysema in abdominal wall/groin areas and some fluid in muscle at Pfannestiel site. Also ? fluid at LUQ port site. On exam, abdomen soft and nontender with
exception of LUQ port site with some erythema and swelling--consistent with infection of incision site.
Plan:
I&D of LUQ port site today at bedside yielding bart pus (see separate procedure note): cx obtained and sent. Continue ABX.
Etiology of food intolerance unclear. For now, continue clears as tolerated, IVF support, empiric antibiotics. Will reassess in am s/p I&D.
Diarrhea ongoing. Stool samples negative on prior admission. Will resend cdiff and stool cx to further evaluate.
Subjective Data
Procedure
06/03- low anterior resection with primary anastomosis, cystorrhaphy and flexible sigmoidoscopy
Subjective Data
Date of Service: June 12, 2025
Pt seen and examined at bedside with Dr. Francis. Vomited this am, still with intermittent nausea. Denies abdominal pain. Having some diarrhea. Left lateral incision with tenderness.
Objective Data
-
Vital Signs
Temp Pulse Resp BP Pulse Ox
98.9 F 85 18 168/81 96
06/12/25 15:00 06/12/25 15:00 06/12/25 15:00 06/12/25 15:00 06/12/25 15:00
Intake & Output
06/11/25 06/12/25 06/13/25
06:59 06:59 06:59
Intake Total 360 / 360 1540 / 1540
Output Total 250 / 250 600 / 600
Balance 110 / 110 -600 / -600 1540 / 1540
Intake:
Oral fluids 480 / 480
IV fluids (Total) 300 / 300 1000 / 1000
IV piggybacks 60 / 60 60 / 60
Output:
Urine, Miranda 600 / 600
Urine, Voided 250 / 250
Lab Results
06/12/25 06:02
06/12/25 06:02
Physical Exam
-
General: No Acute Distress
HEENT: Grossly Normal
Abdomen: Soft, Non Distended and Non Tender
Skin: Warm and Dry
Incision: Clear, Dry, Intact and Other (left lateral incision site with erythema and induration/fluctuance)
[2025-06-12 23:30] VITALS: BP 148/77
[2025-06-12] MEDS: INVANZ 60 MG IV (23:36)
[2025-06-13 06:00] VITALS: BMI 18.0
[2025-06-13 07:20] VITALS: BP 148/78
[2025-06-13 09:35] LABS: Hematocrit 26.6 % (37.0-47.0); Hemoglobin 8.4 g/dL (12.0-16.0); Mean Corp Hgb Conc. 31.6 g/dL (33.0-37.0); Mean Corpuscular Volume 79.6 fL (81.0-99.0); Platelet Count 478 10^3/uL (130-400); Red Cell Dist. Width 16.2 % (11.5-14.5)
[2025-06-13] MEDS: FEMARA 2.5 MG PO (09:37)
[2025-06-13] MEDS: PROTONIX 40 MG PO (09:37)
[2025-06-13] MEDS: NORVASC 2.5 MG PO (09:39)
--- NOTE | 2025-06-13 10:14 | VNURNOTE ---
Chart reviewed.� Patient is current with [facility] nursing.� Will continue to follow hospital course and DC plans.
[2025-06-13 10:25] LABS: Blood Urea Nitrogen 2 mg/dl (7-17); Calcium 8.3 mg/dl (8.4-10.2); Carbon Dioxide 30 mmol/L (22-30); Chloride 98 mmol/L (98-107); Estimated Creatinine Clearance 50 ml/min; Glucose 70 mg/dl (70-99); Magnesium 1.4 mg/dl (1.6-2.3); Potassium 3.3 mmol/L (3.5-5.1); Sodium 133 mmol/L (135-145); eGFR > 60.00
--- NOTE | 2025-06-13 11:21 | W.PN.CRS1 ---
Documented by User: Catherine Espino PA-C 06/13/25 11:24
Today's Communication / Plan
-
low residue
continue abx
await cultures/cdiff
Assessment/Plan
-
84 yo F POD 10 s/p robotic LAR with takedown colovesical fistula and bladder repair on 06/03/25 disharged on 06/08 and readmitted on 06/10 due to nausea/emesis/food intolerance. POD 1 I&D of LUQ port site today at bedside.
CTA/P shows no obvious intraperitoneal or intestinal process. Seen in subcutaneous emphysema in abdominal wall/groin areas and some fluid in muscle at Pfannestiel site. Also ? fluid at LUQ port site. On exam, abdomen soft and nontender with
exception of LUQ port site with some erythema and swelling--consistent with infection of incision site.
Plan:
-Will advance to a low residue diet
-OOB as tolerated
-Monitor wound
-Continue IV antibiotics
-C diff and stool cultures pending
-Wound cultures pending
-Recommend observing at least one more day
Subjective Data
Procedure
06/03- low anterior resection with primary anastomosis, cystorrhaphy and flexible sigmoidoscopy
Subjective Data
Date of Service: June 13, 2025
Patient states she is more hungry and asking for food. Denies nausea or vomiting. Pain is controlled.
Objective Data
-
Vital Signs
Temp Pulse Resp BP Pulse Ox
98.2 F 80 18 148/78 96
06/13/25 07:20 06/13/25 07:20 06/13/25 07:20 06/13/25 07:20 06/13/25 07:20
Intake & Output
06/12/25 06/13/25 06/14/25
06:59 06:59 06:59
Intake Total 2019 550 / 550
Output Total 600 / 600
Balance -600 / -600 2020 / 2020 550 / 550
Intake:
Oral fluids 960 / 960 240 / 240
IV fluids (Total) 1000 / 1000
IV piggybacks 60 / 60 310 / 310
Output:
Urine, Miranda 600 / 600
Other:
Number of approximated MODERATE 1
amounts of urine
Lab Results
06/13/25 09:09
06/13/25 09:09
Physical Exam
-
General: No Acute Distress and AOx3
Abdomen: Soft, Non Distended and Non Tender
Skin: Warm and Dry
Wound: Other (serous drainage from left lateral port site)

Documented by User: Harpreet Cook MD 06/13/25 19:05
Physical Exam
-
Abdomen: Other (LUQ port site with some surrounding erythema, non-blanching, stable (based on marker drawn around it), no fluctuance, draining serous/fibrinous material, no purulence)
Wound: Other
--- NOTE | 2025-06-13 14:18 | CM ---
Chart reviewed. Care ongoing at this time.
Cont IV abx
Awaiting c diff and stool cultures
Current w/ [facility]
Plan: Home, VY w/ [facility] when stable
[2025-06-13 14:44] VITALS: BP 133/64
[2025-06-13 15:55] VITALS: BP 133/64
--- NOTE | 2025-06-13 17:30 | W.PN.HOSP.TC ---
Today's Communication/Plan
-
Assessment / Plan
Assessment / Plan
A/P: Patient is an 84y F with PMH significant for hypertension, breast cancer and recent surgery for colovesicular fistula who presents to ED complaining of intractable N/V since discharge.
Infection of the left upper quadrant port site from previous surgery
S/p I&D on 06/12 with surgery at bedside
Follow-up culture data
Continue ertapenem
May need to consider infectious disease consultation
Intractable nausea vomiting
Likely secondary to questionable fluid at left upper quadrant port site that was noted on CT abdomen pelvis
Now improving
Continue antiemetics
Advance diet as tolerated
Colovesicular Fistula
s/p Robotic LAR 06/03/25
- LUQ trocar site with erythema, tenderness and slightly raised appearance.
- Colorectal Surgery eval as noted above.
- CT scan done in the ED today with multiple abnormal findings - likely all expected post-op findings after recent robotic surgery.
- Hold further Augmentin -continue ertapenem dose for now to complete abx course.
- Maintain Miranda catheter for now - tentatively scheduled for removal on Friday.
- Follow abdominal exam for changes.
- Path from surgery / mass excision is pending.
Post-Op Blood Loss Anemia
- Hgb is stable / slightly improved from discharge.
- Iron studies suggest anemia of chronic disease
- Follow H&H and transfuse if < 7.
Benign Hypertension
- Stable. Continue amlodipine with holding parameters.
Hypokalemia
- Replete fifth hand
- Monitor on telemetry.
Hyponatremia
Encourage p.o. intake
Hypomagnesemia
Replete as needed
History of Breast Cancer
- Continue letrozole.
DVT Prophylaxis: SCDs
Code Status: DNR
Anticipated Discharge: 24 - 48 hours
Subjective/Interval History
-
Date of Service: June 13, 2025
Seen and examined. No new complaints. No acute overnight events.
Asking to advance diet
Objective Data
-
Labs:
Laboratory Results
06/13/25
09:09
WBC 8.3
Hgb 8.4 L
Hct 26.6 L
Plt Count 478 H
Sodium 133 L
Potassium 3.3 L
Chloride 98
Carbon Dioxide 30
BUN 2 L
Creatinine 0.5 L
Glucose 70
Calcium 8.3 L
Vital Signs:
Vital Signs
Temp Pulse Resp BP Pulse Ox
99.0 F 98 16 133/64 96
06/13/25 15:55 06/13/25 15:55 06/13/25 15:55 06/13/25 15:55 06/13/25 15:55
I&O
06/12/25 06/13/25 06/14/25
06:59 06:59 06:59
Intake Total 2019 550 / 550
Output Total 600 / 600 800 / 800
Balance -600 / -600 2019 -250 / -250
Physical Exam
-
General: Comfortable
HEENT: Normocephalic and Atraumatic
Respiratory: Clear to Auscultation
Cardiac: Regular Rhythm
GI: Soft, Nontender and Nondistended
Musculoskeletal: No Clubbing and No Cyanosis
Skin: Other (Left upper quadrant macular lesion with blistering has now subsided as there is a 1 cm incision noted that was made by surgery I was able to drain and culture this blister)
Neuro: Awake, Alert and AO x 3
Psych: Calm
[2025-06-13] MEDS: MAGNESIUM SULFATE 100 IV (17:48)
[2025-06-13] MEDS: KCL 270 MEQ IV (17:48)
[2025-06-13 23:50] VITALS: BP 111/61
[2025-06-14] MEDS: INVANZ 60 MG IV (00:05)
[2025-06-14 06:00] VITALS: BMI 18.2
[2025-06-14 07:37] LABS: Hematocrit 27.6 % (37.0-47.0); Hemoglobin 8.7 g/dL (12.0-16.0); Mean Corp Hgb Conc. 31.5 g/dL (33.0-37.0); Mean Corpuscular Volume 80.7 fL (81.0-99.0); Platelet Count 550 10^3/uL (130-400); Red Cell Dist. Width 16.7 % (11.5-14.5)
[2025-06-14] MEDS: NORVASC 2.5 MG PO (07:46)
[2025-06-14] MEDS: FEMARA 2.5 MG PO (07:46)
[2025-06-14] MEDS: PROTONIX 40 MG PO (07:46)
[2025-06-14 08:06] VITALS: BP 121/68
[2025-06-14 08:08] LABS: Blood Urea Nitrogen 7 mg/dl (7-17); Calcium 8.1 mg/dl (8.4-10.2); Carbon Dioxide 33 mmol/L (22-30); Chloride 98 mmol/L (98-107); Estimated Creatinine Clearance 51 ml/min; Glucose 102 mg/dl (70-99); Magnesium 2.4 mg/dl (1.6-2.3); Potassium 3.2 mmol/L (3.5-5.1); Sodium 133 mmol/L (135-145); eGFR > 60.00
--- NOTE | 2025-06-14 09:26 | PN.CDI ---
CDI
- -
CDI:
Physician Documentation Request
Admit Date: 06/10/25 22:57
Dear Doctor Orlando,
Please review the following and provide your response in the progress notes.
Clinical Indicators:
Pt admitted with surgical site infection LUQ at port site /Cellulitis ? Abscess
Documented per nutrition consult 06/11 & note06/13,' ...CBW (06/11) 101lb 2oz BMI 18.5 underwt/htWeight hx (05/26) 100lb 4oz, (04/13) 106lb 7oz Pt reported weight 115lb in March 2025 reflecting a significant 14lb, 13.85 wt loss over the past 3 months....Pt
continues to meet criteria for severe protein calorie malnutrition of chronic illness with >7.5% wt loss x 3 months, prolonged inadequate intake <75% for >1 month. Nutrition to follow diet advancement as per level of care...'
Based on the above information and your assessment, which of the following most accurately represents the patient's nutritional status?
Severe Protein calorie Malnutrition
Other (please specify)
[place] Criteria ([employer] Hospitalist 2017)
2 or more criteria must be present for either
non severe or severe malnutrition
Note that the criteria differs related to the
presence of an acute or chronic illness
Acute Illness Chronic Illness
Energy Intake Non Severe: <75% for >7 days Non Severe: <75% for >1 month
Severe: <50% for >5 days Severe: <75% for >1 month
Weight Loss Non Severe: 1-2% over 1 week Non Severe: 5% over 1 month
5% over 1 month 7.5% over 3 months
7.5% over 3 months 10% over 6 months
1 year N/A 20% over 1 year
Severe: >2% over 1 week Severe: >5% over 1 month
>5% over 1 month >7.5% over 3 months
>7.5% over 3 months >10% over 6 months
1 year N/A >20% over 1 year
Body Fat Non Severe: Mild Decrease Non Severe: Mild Loss
Severe: Moderate Decrease Severe: Severe Loss
Muscle Mass Non Severe: Mild Decrease Non Severe: Mild Loss
Severe: Moderate Decrease Severe: Severe Loss
Fluid Accumulation Non Severe: Mild Accumulation Non Severe: Mild Accumulation
Severe: Moderate to severe Severe: Moderate to severe
accumulation accumulation
Reduced Center Consultant Strength Non Severe: N/A Non Severe: N/A
Severe: Measurably reduced Severe: Measurably reduced
Use of terms such as suspected, likely, concern for, or probable (associated with a specific diagnosis that is being evaluated, monitored, or treated as if it exists) are acceptable and can be coded in the inpatient setting, when documented at the
time of discharge.
Thank you,
Mere Miller RN
CDI Specialist
[place] [facility]
Please use your independent medical judgment in providing your response.
--- NOTE | 2025-06-14 11:03 | W.PN.CRS1 ---
Today's Communication / Plan
-
LUQ port site to be lanced today
eliquis on d/c
Assessment/Plan
-
84 yo F POD 11 s/p robotic LAR with takedown colovesical fistula and bladder repair on 06/03/25 disharged on 06/08 and readmitted on 06/10 due to nausea/emesis/food intolerance. POD 1 I&D of LUQ port site today at bedside.
CTA/P shows no obvious intraperitoneal or intestinal process. Seen in subcutaneous emphysema in abdominal wall/groin areas and some fluid in muscle at Pfannestiel site. Also ? fluid at LUQ port site. On exam, abdomen soft and nontender with
exception of LUQ port site with some erythema and swelling--consistent with infection of incision site.
Plan:
-Continue low residue diet
-OOB as tolerated
-Wound to be lanced later today at bedside
-Continue IV antibiotics
-C diff and stool cultures pending
-Wound cultures pending
-Voiding post berumen removal - low threshold to replace
-Await OR pathology
-Possible d/c later today. Okay from our standpoint. Will need Eliquis 2.5mg po BID on discharge x 1 month.
Subjective Data
Procedure
06/03- low anterior resection with primary anastomosis, cystorrhaphy and flexible sigmoidoscopy
Subjective Data
Date of Service: June 14, 2025
Patient states she is urinating without difficulty. Denies nausea or vomiting. Pain is controlled.
Objective Data
-
Vital Signs
Temp Pulse Resp BP Pulse Ox
97.2 F 76 16 121/68 97
06/14/25 08:06 06/14/25 08:06 06/14/25 08:06 06/14/25 08:06 06/14/25 08:06
Intake & Output
06/13/25 06/14/25 06/15/25
06:59 06:59 06:59
Intake Total 2019 550 / 550 540 / 540
Output Total 800 / 800
Balance 2019 -250 / -250 540 / 540
Intake:
Oral fluids 960 / 960 240 / 240 480 / 480
IV fluids (Total) 1000 / 1000
IV piggybacks 60 / 60 310 / 310 60 / 60
Output:
Urine, Berumen 800 / 800
Other:
Number of approximated SMALL 2
amounts of urine
Number of approximated MODERATE 1
amounts of urine
Lab Results
06/14/25 07:10
06/14/25 07:10
Physical Exam
-
General: No Acute Distress and AOx3
Abdomen: Soft, Non Distended and Other (tenderness around LUQ port site with some fluid drainage. )
--- NOTE | 2025-06-14 13:45 | W.PN.HOSP.TC ---
Today's Communication/Plan
-
kcl 40mg IV BID
ID consult as culture demo Yeast
Appreciate ID input in terms of Erta needs as culture + for yeast but symptoms improving on antibiotics and not on antifungals
Assessment / Plan
Assessment / Plan
A/P: Patient is an 84y F with PMH significant for hypertension, breast cancer and recent surgery for colovesicular fistula who presents to ED complaining of intractable N/V since discharge.
Infection of the left upper quadrant port site from previous surgery
S/p I&D on 06/12 with surgery at bedside
Follow-up culture data - growing yeast
Continue ertapenem
ID consult due to yeast growth on culture, continue erta for now
Intractable nausea vomiting
Likely secondary to questionable fluid at left upper quadrant port site that was noted on CT abdomen pelvis
Now improving
Continue antiemetics
Advance diet as tolerated
Colovesicular Fistula
s/p Robotic LAR 06/03/25
- LUQ trocar site with erythema, tenderness and slightly raised appearance.
- Colorectal Surgery eval as noted above.
- CT scan done in the ED today with multiple abnormal findings - likely all expected post-op findings after recent robotic surgery.
- Hold further Augmentin -continue ertapenem dose for now to complete abx course.
- Maintain Miranda catheter for now - tentatively scheduled for removal on Friday..
- Path from surgery / mass excision is pending.
Post-Op Blood Loss Anemia
- Hgb is stable / slightly improved from discharge.
- Iron studies suggest anemia of chronic disease
- Follow H&H and transfuse if < 7.
Benign Hypertension
- Stable. Continue amlodipine with holding parameters.
Hypokalemia
- Replete fiber optic technician
- Monitor on telemetry.
Hyponatremia
Encourage p.o. intake
Hypomagnesemia
Replete as needed
History of Breast Cancer
- Continue letrozole.
DVT Prophylaxis: SCDs
Code Status: DNR
Anticipated Discharge: 24 - 48 hours
Subjective/Interval History
-
Date of Service: June 14, 2025
Seen and examined. Tolerating diet better today. No new complaints. No acute overnight events.
Nausea improved
Miranda catheter has been removed, urinating well on own
NV resolved
Diarrhea resolved
Objective Data
-
Labs:
Laboratory Results
06/14/25
07:10
WBC 8.5
Hgb 8.7 L
Hct 27.6 L
Plt Count 550 H
Sodium 133 L
Potassium 3.2 L
Chloride 98
Carbon Dioxide 33 H
BUN 7
Creatinine 0.5 L
Glucose 102 H
Calcium 8.1 L
Vital Signs:
Vital Signs
Temp Pulse Resp BP Pulse Ox
97.2 F 76 16 121/68 97
06/14/25 08:06 06/14/25 08:06 06/14/25 08:06 06/14/25 08:06 06/14/25 08:06
I&O
06/13/25 06/14/25 06/15/25
06:59 06:59 06:59
Intake Total 2019 550 / 550 540 / 540
Output Total 800 / 800
Balance 2019 -250 / -250 540 / 540
[2025-06-14] MEDS: COMPAZINE 5 MG IV (14:57)
[2025-06-14] MEDS: KCL 270 MEQ IV (14:57)
[2025-06-14 15:18] VITALS: BP 136/69
--- NOTE | 2025-06-14 15:59 | CON.ID ---
Consultation
-
Date/Time Consultation Requested: June 14, 2025 1349
Date/Time Consultation Performed: June 14, 2025 1600
Requesting Provider: Dr. Herb Perry
Performing Provider: Dr. Renetta Barrett
Reason for Consultation: Abd wall infection
Chief Complaint / Past History
History of Present Illness
Ameena Pillai is an 84-year-old female being evaluated at the request of Dr. Sabino Perry in regards to infection of port site. She was recently hospitalized from May 26 -June 08, underwent robotic LAR with takedown colovesical fistula and bladder
repair June 03. She received 10 days of ertapenem in the hospital then transition to Augmentin completed June 10. She returned to the hospital on June 10 due to nausea and vomiting. Patient noted to have erythema/fluid at left upper
quadrant previous port site. June 12, she underwent bedside I&D of left upper quadrant incision site with bart pus noted and culture sent. Culture growing yeast. Today, she underwent further bedside I+D. She has been afebrile, no leukocytosis.
The nausea has resolved.
Past History
Additional Past Medical History:
HTN
Diverticular disease
Hx stage III breast CA s/p lumpectomy, radiation, chemo
Colovesical fistula status post robotic LAR with takedown colovesical fistula and bladder repair 06/03/25
Hyperparathyroidism s/p Parathyroidectomy
Bilateral knee replacement
Allergy History:
No Known Allergies Allergy (Verified 06/10/25 16:56)
Medications Reviewed: Yes
Current Antibiotics:
Ertapenem d4
Social History
Tobacco: Non-Smoker
Alcohol: None
Drug: None
Personal: Single
Living: Alone
Employment: Retired
Family History
Family History: Not Pertinent
Review of Systems
Review of Systems
General: Change in Appetite; Negative Fever or Chills
HEENT: Negative Headache
Cardiovascular: Negative Chest Pain or Dyspnea
Respiratory: Negative Dyspnea or Cough
Gasteroenterology: Diarrhea
Genital / Urological: Negative Dysuria or Flank Pain
Endocrine: Weakness
All systems: All other systems were reviewed and were negative
Vital Signs
Temp Pulse Resp BP Pulse Ox
99.5 F 81 18 136/69 94
06/14/25 15:18 06/14/25 15:18 06/14/25 15:18 06/14/25 15:18 06/14/25 15:18
Physical Exam
Physical Exam
Constitutional: No Acute Distress, Chronically Ill and Cachetic
Eyes: No Conjunctival Hemorrhage and Sclera Anicteric
Cardiovascular: Regular Rate and S1/S2
Pulmonary: Clear
Gastrointestinal: Soft, Non Tender, Non Distended and Normal Bowel Sounds
Extremities: Negative Edema
Wound: Other (LUQ abdomen wound with packing, mild surrounding erythema)
Neurological: AO x 3
Lab / Diagnostic Study Results
06/14/25 07:10
06/14/25 07:10
Abs Immat Gran (auto) 0.1 10^3/uL (0-0.05) H 06/10/25 17:24
Absolute Neuts (auto) 8.5 10^3/uL (1.4-6.5) H 06/10/25 17:24
Absolute Lymphs (auto) 2.1 10^3/uL (1.2-3.4) 06/10/25 17:24
Absolute Monos (auto) 0.6 10^3/uL (0.1-0.6) 06/10/25 17:24
Absolute Basos (auto) 0.0 10^3/uL (0-0.2) 06/10/25 17:24
Immature Gran % 0.7 % (0-0.5) H 06/10/25 17:24
Neutrophils % 74.5 % (42.2-75.2) 06/10/25 17:24
Lymphocytes % 18.7 % (20.5-51.1) L 06/10/25 17:24
Monocytes % 5.3 % (1.7-9.3) 06/10/25 17:24
Eosinophils % 0.5 % (0-6) 06/10/25 17:24
Basophils % 0.3 % (0-2) 06/10/25 17:24
Microbiology Results
Micro:
06/12/25 15:45 Anaerobic Culture - Preliminary
Abscess Culture pending. Anaerobic cultures are examined after 3
days incubation. Additional information to follow.
06/12/25 15:45 Wound Culture - Preliminary
Abscess Yeast
Gram Stain - Preliminary
06/14/25 08:01 C. difficile GDH Antigen & Toxins - Final
Feces/Stool Negative for toxigenic C.difficile
06/14/25 08:01 Salmonella/Shigella Culture - Pending
Feces/Stool Campylobacter Culture - Pending
Shiga Toxin Test - Pending
06/10/25 CT a/p: Extensive air throughout the superficial soft tissues of the anterior pelvic wall, anterior abdominal wall and extending into the groins and perineum, incompletely included on this study distally at least in part could be the sequela
of recent surgery. Heterogeneous low-attenuation density of approximately 25-30 Hounsfield units along the posterior aspect of the anterior abdominal wall, as detailed above measuring 9.2 x 16.8 x 1.4 cm with at least one bubble of air within. This
would be atypical to represent a rectus sheath hematoma in light of position, could represent a seroma or hematoma. With bubble of air within, abscess cannot be excluded.
Assessment / Plan
# LUQ robotic port site SSTI
# Recent robotic LAR with takedown colovesical fistula and bladder repair 06/03/25
- s/p bedside I+D of LUQ incision site by colorectal
Cx growing only yeast
Asked micro to identify yeast
- DC Ertapenem
- Start fluconazole 200mg po daily x 7d.
Care Review
Plan reviewed with: Physician (Dr. Sabino Perry)
[2025-06-14] MEDS: DIFLUCAN 200 MG PO (17:12)
[2025-06-15 00:14] VITALS: BP 115/65
[2025-06-15 07:00] VITALS: BP 145/65
[2025-06-15] MEDS: PROTONIX 40 MG PO (08:09)
[2025-06-15] MEDS: FEMARA 2.5 MG PO (08:09)
[2025-06-15] MEDS: NORVASC 2.5 MG PO (08:09)
[2025-06-15] MEDS: DIFLUCAN 200 MG PO (08:10)
--- NOTE | 2025-06-15 09:00 | W.PN.CRS1 ---
Today's Communication / Plan
-
likely d/c later today
eliquis 2.5mg BID for 1 month on d/c
wound dressing replaced
Assessment/Plan
-
84 yo F POD 12 s/p robotic LAR with takedown colovesical fistula and bladder repair on 06/03/25 disharged on 06/08 and readmitted on 06/10 due to nausea/emesis/food intolerance. POD 1 I&D of LUQ port site today at bedside.
CTA/P shows no obvious intraperitoneal or intestinal process. Seen in subcutaneous emphysema in abdominal wall/groin areas and some fluid in muscle at Pfannestiel site. Also ? fluid at LUQ port site. On exam, abdomen soft and nontender with
exception of LUQ port site with some erythema and swelling--consistent with infection of incision site.
Plan:
-Continue low residue diet
-OOB as tolerated
-LUQ wound improving - no need to further palma
-Appreciate ID
-Wound cultures pending, prelim is yeast
-Voiding post berumen removal - low threshold to replace
-Await OR pathology
-Possible d/c later today. Okay from our standpoint. Will need Eliquis 2.5mg po BID on discharge x 1 month. Discussed with patient.
Subjective Data
Procedure
06/03- low anterior resection with primary anastomosis, cystorrhaphy and flexible sigmoidoscopy
Subjective Data
Date of Service: June 15, 2025
Patient states she feels well today. She wants to go home and is dressed and ready to go. Denies nausea or vomiting. Tolerating a diet. Has bowel function.
Objective Data
-
Vital Signs
Temp Pulse Resp BP Pulse Ox
97.8 F 88 17 145/65 99
06/15/25 07:00 06/15/25 07:00 06/15/25 07:00 06/15/25 07:00 06/15/25 08:10
Intake & Output
06/14/25 06/15/25 06/16/25
06:59 06:59 06:59
Intake Total 550 / 550 780 / 780
Output Total 800 / 800
Balance -250 / -250 780 / 780
Intake:
Oral fluids 240 / 240 720 / 720
IV piggybacks 310 / 310 60 / 60
Output:
Urine, Berumen 800 / 800
Other:
Number of approximated SMALL 2
amounts of urine
Number of approximated MODERATE 1 3
amounts of urine
Physical Exam
-
General: No Acute Distress and AOx3
Abdomen: Soft, Non Distended and Non Tender
Wound: No Signs of Infection (non erythematamous, non tender, draining clear fluid) and Dressing Changed
[2025-06-15 09:27] LABS: Hematocrit 26.5 % (37.0-47.0); Hemoglobin 8.3 g/dL (12.0-16.0); Mean Corp Hgb Conc. 31.3 g/dL (33.0-37.0); Mean Corpuscular Volume 80.8 fL (81.0-99.0); Platelet Count 500 10^3/uL (130-400); Red Cell Dist. Width 17.3 % (11.5-14.5)
[2025-06-15 10:21] LABS: Blood Urea Nitrogen 6 mg/dl (7-17); Calcium 8.0 mg/dl (8.4-10.2); Carbon Dioxide 31 mmol/L (22-30); Chloride 102 mmol/L (98-107); Estimated Creatinine Clearance 51 ml/min; Glucose 101 mg/dl (70-99); Magnesium 1.8 mg/dl (1.6-2.3); Potassium 3.8 mmol/L (3.5-5.1); Sodium 136 mmol/L (135-145); eGFR > 60.00
--- NOTE | 2025-06-15 10:56 | CM ---
CM reviewed chart, patient seen bedside, discussed plan to return home with [facility] when stable. IMM verbally reviewed, provided with copy, placed in chart. CM will continue to follow for all discharge planning needs.
Plan; home with [facility] when stable
--- NOTE | 2025-06-15 13:02 | W.PN.HOSP.TC ---
Addendum entered and electronically signed by Jerica Suarez MD 06/16/25 07:04:
Severe Protein calorie Malnutrition
-appreciate dietary
Original Note:
Today's Communication/Plan
-
DC today on Fluconazole
Assessment / Plan
Assessment / Plan
A/P: Patient is an 84y F with PMH significant for hypertension, breast cancer and recent surgery for colovesicular fistula who presents to ED complaining of intractable N/V since discharge.
Abdomen/Pelvis CT
IMPRESSION:
Extensive air throughout the superficial soft tissues of the anterior pelvic wall, anterior abdominal wall and extending into the groins and perineum, incompletely included on this study distally at least in part could be the sequela of recent
surgery. More aggressive etiology such as fasciitis cannot be excluded.
Heterogeneous low-attenuation density of approximately 25-30 Hounsfield units along the posterior aspect of the anterior abdominal wall, as detailed above measuring 9.2 x 16.8 x 1.4 cm with at least one bubble of air within. This would be atypical
to represent a rectus sheath hematoma in light of position, could represent a seroma or hematoma. With bubble of air within, abscess cannot be excluded.
Recent sigmoid region surgery with postsurgical changes noted as well as 'conglomerate'r 'heterogeneous soft tissue, markedly limited in evaluation without oral contrast. Unfortunately, significant infectious process including developing abscess
cannot be excluded. Small volume free fluid in the posterior dependent true pelvis which may be the sequela of recent surgery, cannot exclude developing abscess.
No findings to suggest intestinal obstruction.
Additional nonurgent findings as detailed above.
Infection of the left upper quadrant port site from previous surgery
S/p I&D on 06/12 with surgery at bedside
Follow-up culture data - growing yeast
appreciate ID consult - changed to Fluconazole; identification to be back tomorrow discussed with ID OK for DC - follow up final recs
Intractable nausea vomiting
Likely secondary to questionable fluid at left upper quadrant port site that was noted on CT abdomen pelvis
-now resolved
Colovesicular Fistula
s/p Robotic LAR 06/03/25
- LUQ trocar site with erythema, tenderness and slightly raised appearance on admission
- Colorectal Surgery eval as noted above.
- CT scan done in the ED today with multiple abnormal findings - likely all expected post-op findings after recent robotic surgery.
- abx stopped, Fluconazole as above
- Maintain Miranda catheter for now - tentatively scheduled for removal on Friday..
- Path from surgery / mass excision is pending.
Post-Op Blood Loss Anemia
- Hgb is stable / slightly improved from discharge.
- Iron studies suggest anemia of chronic disease
- Follow H&H and transfuse if < 7.
Benign Hypertension
- Stable. Continue amlodipine with holding parameters.
Hypokalemia
- Replete digital controls technical officer
- Monitor on telemetry.
Hyponatremia
Encourage p.o. intake
Hypomagnesemia
Replete as needed
History of Breast Cancer
- Continue letrozole.
DVT Prophylaxis: SCDs
Code Status: DNR
Anticipated Discharge: Today
Subjective/Interval History
-
Date of Service: June 15, 2025
she is feeling well
ate breakfast
awoken from a nap
asking about when she can go home
Objective Data
-
Labs:
Laboratory Results
06/15/25
09:02
WBC 8.6
Hgb 8.3 L
Hct 26.5 L
Plt Count 500 H
Sodium 136
Potassium 3.8
Chloride 102
Carbon Dioxide 31 H
BUN 6 L
Creatinine 0.5 L
Glucose 101 H
Calcium 8.0 L
Vital Signs:
Vital Signs
Temp Pulse Resp BP Pulse Ox
97.8 F 88 17 145/65 99
06/15/25 07:00 06/15/25 07:00 06/15/25 07:00 06/15/25 07:00 06/15/25 08:10
I&O
06/14/25 06/15/25 06/16/25
06:59 06:59 06:59
Intake Total 550 / 550 780 / 780
Output Total 800 / 800
Balance -250 / -250 780 / 780
Review of Systems
-
History Source: Patient
All other systems: Reviewed and negative
Physical Exam
-
General: Comfortable
HEENT: Normocephalic and Atraumatic
Respiratory: Clear to Auscultation
Cardiac: Regular Rhythm
GI: Soft, Nontender and Nondistended
Musculoskeletal: No Clubbing and No Cyanosis
Skin: Other (Left upper quadrant wound covered c/d/i)
Neuro: Awake, Alert and AO x 3
Psych: Calm
Data Reviewed
-
Diagnostic Radiology: Report Reviewed by me
Labs: Labs Reviewed by me
--- NOTE | 2025-06-15 13:05 | W.PN.ID1 ---
Date of Service
Date of Service: June 15, 2025
Today's Communication
Can dc home on fluconazole 200mg po daily and cefuroxime 500mg po bid through x 7 more days.
Assessment / Plan
# LUQ robotic port site SSTI
# Recent robotic LAR with takedown colovesical fistula and bladder repair 06/03/25
- s/p bedside I+D of LUQ incision site by colorectal
Cx growing only yeast
Asked micro to identify yeast, available tomorrow
- Can dc home on fluconazole 200mg po daily and cefuroxime 500mg po bid through x 7 more days.
Chief Complaint
-: Cellulitis
Subjective / Review of Systems
Wants to go home.
Vital Signs / Physical Exam
Vital Signs
Vital Signs
Temp Pulse Resp BP Pulse Ox
97.8 F 88 17 145/65 99
06/15/25 07:00 06/15/25 07:00 06/15/25 07:00 06/15/25 07:00 06/15/25 08:10
Physical Exam
Constitutional: No Acute Distress and Chronically Ill
Cardiovascular: Regular Rate and S1/S2
Pulmonary: Clear
Gastrointestinal: Soft, Non Tender, Non Distended and Other (LUQ previous robotic port site mild induration with erythema, scant serous fluid)
Neurological: AO x 3
Objective Data
Lab Data
Lab Results
06/15/25 09:02
06/15/25 09:02
Estimated Creat Clear 51 ml/min 06/15/25 09:02
Total Bilirubin 0.6 mg/dl (0.2-1.3) 06/10/25 17:24
AST 22 U/L (14-36) 06/10/25 17:24
ALT 10 U/L (0-35) 06/10/25 17:24
Alkaline Phosphatase 68 U/L (38-126) 06/10/25 17:24
Most recent labs reviewed.
Micro Results:
06/12/25 15:45 Wound Culture - Preliminary
Abscess Yeast
Gram Stain - Preliminary
06/12/25 15:45 Anaerobic Culture - Preliminary
Abscess Culture pending. Anaerobic cultures are examined after 3
days incubation. Additional information to follow.
06/14/25 08:01 C. difficile GDH Antigen & Toxins - Final
Feces/Stool Negative for toxigenic C.difficile
06/14/25 08:01 Salmonella/Shigella Culture - Pending
Feces/Stool Campylobacter Culture - Pending
Shiga Toxin Test - Pending
06/10/25 CT a/p: Extensive air throughout the superficial soft tissues of the anterior pelvic wall, anterior abdominal wall and extending into the groins and perineum, incompletely included on this study distally at least in part could be the sequela
of recent surgery. Heterogeneous low-attenuation density of approximately 25-30 Hounsfield units along the posterior aspect of the anterior abdominal wall, as detailed above measuring 9.2 x 16.8 x 1.4 cm with at least one bubble of air within. This
would be atypical to represent a rectus sheath hematoma in light of position, could represent a seroma or hematoma. With bubble of air within, abscess cannot be excluded.
Care Review
Plan reviewed with: Physician (Dr. Suarez)
--- NOTE | 2025-06-15 14:36 | W.DS.TRANS ---
DC Summary - Department Editor
-
Discharge Instructions:
Discharge Diagnosis/Procedures port site skin and soft tissue infection;
culture growing yeast
Diet Low Residue
Additional Diets low residue x 1 week then advance as tolerated
Activity No strenuous activity
Additional Activity No lifting over 10lbs (gallon of milk)
Driving Restrictions No driving for 1 week
Bathing Restrictions OK to Shower
Wound Care
Allow glue to naturally fall off. Do not pick at
incisions. Cover left upper quadrant wound with
gauze and paper tape daily and as needed. Okay
to remove to shower. Okay to remove once wound
seals over.
Instructions: Apixaban
Low-fiber diet
Stand-Alone Forms:
Changes to Home Medications: Yes
Discharge Medications:
DC Medications w/original date entered in [employer]
amlodipine 2.5 mg tablet 2.5 mg PO DAILY Blood Pressure 04/08/12
letrozole 2.5 mg tablet (Femara) 2.5 mg PO DAILY breast cancer 03/08/21
acetaminophen 500 mg tablet (Tylenol Extra Strength) 1,000 mg PO DAILYPRN PRN mild pain 04/13/25
ascorbic acid (vitamin C) 500 mg tablet (Vitamin C) 500 mg PO DAILY Supplement 04/13/25
cyanocobalamin (vitamin B-12) 1,000 mcg tablet 1,000 mcg PO DAILY Supplement 04/13/25
vitamin E 268 mg (400 unit) capsule 268 mg PO DAILY Supplement 04/13/25
tramadol 50 mg tablet 50 mg PO BIDPRN PRN mild pain 05/26/25
apixaban 2.5 mg tablet (Eliquis) 2.5 mg PO BID 1 month #60 tabs 06/15/25
cefuroxime axetil 500 mg tablet 500 mg PO BID #13 tabs 06/15/25
fluconazole 200 mg tablet 200 mg PO DAILY #7 tabs 06/15/25
Home Medication Changes
Take Cefuroxime 500mg twice a day x 7 more days
Take Fluconazole 200mg daily x 7 more days
STOP Augmentin (replaced by above antibiotic)
Take Eliquis 2.5mg twice a day to prevent blood clots
Pending Results: No
[2025-06-15 15:00] VITALS: BP 119/71
--- NOTE | 2025-06-15 15:22 | PN.CDI ---
CDI
- -
CDI:
Physician Documentation Request
Admit Date: 06/10/25 22:57
Dear Doctor Daniela,
Please review the following and provide your response in the progress notes.
Clinical Indicators:
Pt admitted with surgical site infection LUQ at port site /Cellulitis ? Abscess
Documented per nutrition consult 06/11 & note06/13,' ...CBW (06/11) 101lb 2oz BMI 18.5 underwt/htWeight hx (05/26) 100lb 4oz, (04/13) 106lb 7oz Pt reported weight 115lb in March 2025 reflecting a significant 14lb, 13.85 wt loss over the past 3 months....Pt
continues to meet criteria for severe protein calorie malnutrition of chronic illness with >7.5% wt loss x 3 months, prolonged inadequate intake <75% for >1 month. Nutrition to follow diet advancement as per level of care...'
Based on the above information and your assessment, which of the following most accurately represents the patient's nutritional status?
Severe Protein calorie Malnutrition
Other (please specify)
George Criteria (ACP Hospitalist 2017)
2 or more criteria must be present for either
non severe or severe malnutrition
Note that the criteria differs related to the
presence of an acute or chronic illness
Acute Illness Chronic Illness
Energy Intake Non Severe: <75% for >7 days Non Severe: <75% for >1 month
Severe: <50% for >5 days Severe: <75% for >1 month
Weight Loss Non Severe: 1-2% over 1 week Non Severe: 5% over 1 month
5% over 1 month 7.5% over 3 months
7.5% over 3 months 10% over 6 months
1 year N/A 20% over 1 year
Severe: >2% over 1 week Severe: >5% over 1 month
>5% over 1 month >7.5% over 3 months
>7.5% over 3 months >10% over 6 months
1 year N/A >20% over 1 year
Body Fat Non Severe: Mild Decrease Non Severe: Mild Loss
Severe: Moderate Decrease Severe: Severe Loss
Muscle Mass Non Severe: Mild Decrease Non Severe: Mild Loss
Severe: Moderate Decrease Severe: Severe Loss
Fluid Accumulation Non Severe: Mild Accumulation Non Severe: Mild Accumulation
Severe: Moderate to severe Severe: Moderate to severe
accumulation accumulation
Reduced Riveter Pneumatic Strength Non Severe: N/A Non Severe: N/A
Severe: Measurably reduced Severe: Measurably reduced
Use of terms such as suspected, likely, concern for, or probable (associated with a specific diagnosis that is being evaluated, monitored, or treated as if it exists) are acceptable and can be coded in the inpatient setting, when documented at the
time of discharge.
Thank you,
Mere Miller RN
CDI Specialist
[facility] [employer]
Please use your independent medical judgment in providing your response.
--- NOTE | 2025-06-15 15:27 | VNURNOTE ---
Chart reviewed. [facility] Resumption referral accepted. Liaison called patient and confirmed she will be DC to family's house at [address] [place] [address]. She is agreeable to resumption.
--- NOTE | 2025-06-15 15:35 | W.DCSUMMARY ---
Discharge Summary
Discharge Data
Date of Admission: 06/10/25
Date of Discharge: 06/15/25
-
Pending Results: Yes
Additional Pending Results:
final yeast speciation
pathology results from last hospitalization, OR 06/03
Hospital Course
Discharging Physician : Dr. Jerica Suarez
Disposition : Home with
Primary care physician : Dr. Michell Howard
Principal Discharge diagnosis : Nausea and Vomiting, SSTI at LUQ port site from prior surgery; status post I&D 06/12 with culture growing yeast
Hospital Course :
Ms. Ameena Pillai is a 84 yo woman with hx essential HTN, right breast cancer s/p lumpectomy/chemo/XRT, recent hospitalization for complications of colovesical fistula s/p robotic assisted laparoscopic low anterior resection with cystorrhaphy
06/03/25 discharged with berumen catheter presents to the ER with nausea and vomiting. She was found to have erythema at LUQ incision site with induration and swelling. Triage vitals stable. Labs with WBC 11.4, Cr 0.5. CT with finding hematoma versus
seroma. She was admitted to medicine with CRS consulting.
Patient underwent I&D of LUQ port site yielding bart pus. Culture was sent. She was resumed on antibiotics. Culture returned positive for yeast. ID was consulted and patient was started on Fluconazole. Identification of yeast pending at time
of DC, to result tomorrow. Per ID recs, OK for discharged on 7 days Cefuroxime 500mg BID and Fluconazole 200mg daily.
Patient's nausea and vomiting improved and her diet was slowly advanced. She is tolerating a LRD prior to DC.
Final pathology from initial surgery 06/03 remains pending.
Patient to follow up with her PCP and Dr. Ha in 2 weeks.
Per CRS recommendations, she is started on low dose Eliquis post hospitalization for DVT prophylaxis.
Time spent on discharge was 35 minutes.
Important imaging findings :
Abdomen/Pelvis CT 06/10/25
IMPRESSION:
Extensive air throughout the superficial soft tissues of the anterior pelvic wall, anterior abdominal wall and extending into the groins and perineum, incompletely included on this study distally at least in part could be the sequela of recent
surgery. More aggressive etiology such as fasciitis cannot be excluded.
Heterogeneous low-attenuation density of approximately 25-30 Hounsfield units along the posterior aspect of the anterior abdominal wall, as detailed above measuring 9.2 x 16.8 x 1.4 cm with at least one bubble of air within. This would be atypical
to represent a rectus sheath hematoma in light of position, could represent a seroma or hematoma. With bubble of air within, abscess cannot be excluded.
Recent sigmoid region surgery with postsurgical changes noted as well as 'conglomerate'r 'heterogeneous soft tissue, markedly limited in evaluation without oral contrast. Unfortunately, significant infectious process including developing abscess
cannot be excluded. Small volume free fluid in the posterior dependent true pelvis which may be the sequela of recent surgery, cannot exclude developing abscess.
No findings to suggest intestinal obstruction.
Additional nonurgent findings as detailed above.
Procedure findings :
Discharge Plan
-
Patient Disposition: Home (Routine Discharge)
Discharge Diagnosis/Procedures: port site skin and soft tissue infection; culture growing yeast
Condition: Good
Diet: Low Residue
Additional Diets: low residue x 1 week then advance as tolerated
Activity: No strenuous activity
Additional Activity: No lifting over 10lbs (gallon of milk)
Driving Restrictions: No driving for 1 week
Bathing Restrictions: OK to Shower
Wound Care:
Allow glue to naturally fall off. Do not pick at incisions. Cover left upper quadrant wound with gauze and paper tape daily and as needed. Okay to remove to shower. Okay to remove once wound seals over.
Activity Restrictions/Additional Instructions:
Tylenol as needed for pain. Maximum dose of Tylenol is 4,000mg in 24 hours.
Instructions: Apixaban, Low-fiber diet
Referrals:
Zeke Ha MD [Active, [facility]] - in two weeks
Michell Howard CRNP [Family Provider, Family Practice] - in less than 1 week
Additional Discharge Medication Instructions: Take Cefuroxime 500mg twice a day x 7 more days
Take Fluconazole 200mg daily x 7 more days
STOP Augmentin (replaced by above antibiotic)
Take Eliquis 2.5mg twice a day to prevent blood clots
Prescriptions:
New
Eliquis 2.5 mg tablet
2.5 mg PO BID 30 Days Qty: 60 0RF
fluconazole 200 mg Tablet
200 mg PO DAILY Qty: 7 0RF
cefuroxime axetil 500 mg Tablet
500 mg PO BID Qty: 13 0RF
Continued
amlodipine 2.5 MG tablet
2.5 mg PO DAILY
letrozole [Femara] 2.5 MG tablet
2.5 mg PO DAILY
cyanocobalamin (vitamin B-12) 1,000 mcg Tablet
1,000 mcg PO DAILY
acetaminophen [Tylenol Extra Strength] 500 mg Tablet
1,000 mg PO DAILYPRN PRN (Reason: mild pain)
ascorbic acid (vitamin C) [Vitamin C] 500 mg Tablet
500 mg PO DAILY
vitamin E 268 mg (400 unit) Capsule
268 mg PO DAILY
tramadol 50 mg tablet
50 mg PO BIDPRN PRN (Reason: mild pain)
Discontinued
amoxicillin-pot clavulanate 875-125 mg Tablet
1 tab PO Q12 3 Days Qty: 6 0RF
Discharge Orders:
Discharge Patient (As Directed); Ordered 06/15/25
Ordered By: Jerica Suarez
Discharge Date and Time
Print Language: SAL[place]
[2025-06-15] MEDS: CEFTIN 500 MG PO (15:42)
== END 2025-06-15 16:39 | disposition home health service (06) | DRG 862 ==
LOC: 4 WEST ACU 22:57
PROVIDERS: Hospitalist; Internal Medicine; Student in an Organized Health Care Education/Training Program; ADMITTING PHYSICIAN Hospitalist; ATTENDING PHYSICIAN Student in an Organized Health Care Education/Training Program; CONSULT PHYSICIAN Internal Medicine Infectious Disease; CONSULT PHYSICIAN Surgery; EMERGENCY PHYSICIAN Emergency Medicine; FAMILY PHYSICIAN Registered Nurse
DX: K68.11 Postprocedural retroperitoneal abscess (principal); E43 Unspecified severe protein-calorie malnutrition; L03.311 Cellulitis of abdominal wall; T79.7XXA Traumatic subcutaneous emphysema, initial encounter; Z68.1 Body mass index [BMI] 19.9 or less, adult; T81.41XA Infection following a procedure, superficial incisional surgical site, initial encounter; I10 Essential (primary) hypertension; Z85.3 Personal history of malignant neoplasm of breast; Z92.21 Personal history of antineoplastic chemotherapy; Z79.811 Long term (current) use of aromatase inhibitors; Z96.653 Presence of artificial knee joint, bilateral; Z66 Do not resuscitate; E87.6 Hypokalemia; Y83.8 Other surgical procedures as the cause of abnormal reaction of the patient, or of later complication, without mention of misadventure at the time of the procedure
CPT/HCPCS: 74177; 80048; 80053; 82728; 83540; 83550; 83690; 83735; 85025; 85027; 87045; 87046; 87070; 87075; 87077; 87106; 87205; 87324; 87427; 87449; 93005; 96361; 96374; 96375; 99285; J1335; Q9967

== ENCOUNTER → 2025-10-12 10:11 | Outpatient (REF) | payer OTHER, SELFPAY | LOC: HWRAD 10:11 | PROVIDERS: ATTENDING PHYSICIAN Internal Medicine Hematology & Oncology; FAMILY PHYSICIAN Nurse Practitioner | DX: C50.411 Malignant neoplasm of upper-outer quadrant of right female breast (principal); Z78.0 Asymptomatic menopausal state; M81.0 Age-related osteoporosis without current pathological fracture | CPT/HCPCS: 77080 ==

== ENCOUNTER → 2025-10-21 11:51 | Outpatient (REF) | payer OTHER, SELFPAY ==
[2025-10-21 12:58] LABS: Hematocrit 41.1 % (37.0-47.0); Hemoglobin 12.9 g/dL (12.0-16.0); Mean Corp Hgb Conc. 31.4 g/dL (33.0-37.0); Mean Corpuscular Volume 79.7 fL (81.0-99.0); Nucleated Red Blood Cells % 0 %; Platelet Count 257 10^3/uL (130-400); Red Cell Dist. Width 16.6 % (11.5-14.5)
[2025-10-21 16:20] LABS: ALT (SGPT) 13 U/L (0-35); AST (SGOT) 21 U/L (14-36); Albumin 4.0 g/dl (3.5-5.0); Alkaline Phosphatase 124 U/L (38-126); Blood Urea Nitrogen 18 mg/dl (7-17); Calcium 9.2 mg/dl (8.4-10.2); Carbon Dioxide 25 mmol/L (22-30); Chloride 105 mmol/L (98-107); Glucose 100 mg/dl (70-99); Potassium 3.7 mmol/L (3.5-5.1); Sodium 139 mmol/L (135-145); Total Protein 6.8 g/dl (6.3-8.2); eGFR > 60.00
[2025-10-21 20:18] LABS: CEA 1.65 ng/ml
== END ==
LOC: REG 11:51
PROVIDERS: ATTENDING PHYSICIAN Internal Medicine Hematology & Oncology; FAMILY PHYSICIAN Nurse Practitioner
DX: C50.411 Malignant neoplasm of upper-outer quadrant of right female breast (principal)
CPT/HCPCS: 36415; 80053; 82248; 82378; 85025